=== PATIENT | female | born 1995 | race African-American/Black ===

== ENCOUNTER 2021-05-09 14:32 | Inpatient (IN) ==
--- NOTE | 2021-05-09 15:08 | DR.GENAD ---
HPI Time Seen Time Seen by Provider: 05/09/21 15:08 PCP Primary Care Physician: PATIENT IS 26YR OLD FEMALE WITH BELOW HISTORY. HPI Comment HPI Comment: GENERALIZED WEAKNESS, COUGH, INCREASING SOB AND COUGH SINCE 05/02/21 WHEN SHE TESTED POSITIVE FOR COVID. GETTING WORSE. HAVE POOR APPETITE AND BODYACHES. COVID-19 Coronavirus risk:travel/contact w/high risk person: Yes Has patient experienced Coronavirus symptoms: Yes Coronavirus symptoms experienced: Coughing and Shortness of Breath Nurses notes reviewed Nurses Notes Review: Yes Source History Provided: Patient Mode of Arrival Mode of Arrival: Ambulatory [facility] PM Past Medical History: CHF Past Surgical History: Yes Surgical History: Ortho Surgery Family History Family Medical History: Diabetes Mellitus and Hypertension Social History Do you use any recreational Drugs:: No ROS Review of Systems Constitutional: See HPI, Weakness, Fatigue and Loss of Appetite; negative Fever Eyes: No Symptoms Reported and See HPI ENTM: See HPI, Nose Discharge and Nose Congestion Respiratoy: See HPI, Productive Cough and Short of Breath; negative Wheezing Cardiovascular: No Symptoms Reported and See HPI; negative Chest Pain Gastrointestinal/Abdominal: No Symptoms Reported and See HPI; negative Abdominal Pain, Diarrhea and Vomiting Genitourinary: No Symptoms Reported, See HPI and Other (STOOL AND URINE INCONTINENCE.); negative Dysuria and Hematuria Neurological: See HPI, Headache and Weakness; negative Dizziness Musculoskeletal: See HPI and Muscle Pain; negative Back Pain Integumentary: No Symptoms Reported and See HPI; negative Rash and Juandice Hematologic/Lymphatic: No Symptoms Reported and See HPI; negative Easy Bruising Endocrine: No Symptoms Reported and See HPI; negative Increased Thirst and Increased Urine Psychiatric: No Symptoms Reported and See HPI All Other Systems: Reviewed and Negative PE Vital Signs Vitals: Temperature 98.6 F Pulse Rate 144 Respiratory Rate 46 Blood Pressure [Left Arm] 115/65 Blood Pressure 105/66 O2 Sat by Pulse Oximetry 95 General Limitations: No Limitations General Appearance: Alert and In No Apparent Distress Head Head Exam: Normal Inspection Eyes Eye exam: Normal Appearance; negative Scleral Icterus and Conjunctival Injection ENT ENT Exam: Normal External Ear Exam; negative Normal Oropharynx and TM's Normal Bilaterally External Ear Exam: Normal External Inspection; negative Mastoid Tenderness TM/Canal Exam: Bilateral: Normal Nose Exam: Normal Nose Exam Mouth Exam: Normal Inspection; negative Lip Swelling and Tongue Swelling Throat Exam: Tonsillar Erythema; negative Tonsillomegaly and Tonsillar Exudate Neck Neck Exam: Normal Inspection and Trachea Midline; negative Tenderness Chest Chest Inspection: Normal Inspection and Symmetric Chest Wall Rise; negative Tenderness Respiratory Respiratory Exam: Normal Lung Sounds Bilat and Respiratory Distress; negative Accessory Muscle Use and Chest Wall Tenderness Respiratory Exam: Bilateral: Rhonchi and Lower: Rhonchi Cardiovascular Cardiovascular Exam: Regular Rate, Normal Rhythm and Normal Heart Sounds; negative Systolic Murmur and Diastolic Murmur Abdominal Exam Abdominal Exam: Normal Inspection, Normal Bowel Sounds and Soft; negative Tenderness Extremities Extremities Exam: Normal Inspection and Normal Capillary Refill Back Back Exam: Normal Inspection; negative (R) CVA Tenderness and (L) CVA Tenderness Neurologic Neurological Exam: Alert and Oriented X3; negative Motor Sensory Deficit Psychiatric Psychiatric Exam: Normal Affect and Normal Mood Skin Skin Exam: Dry MDM Differential Diagnosis Differential Diagnosis: PNEUMONIA, BRONCHITIS, UTI, COVID 19 VIRUS INFECTION. COURSE Treatment Treatment: SEE ORDERS DONE WHILE PATIENT WAS IN ER. NS 1L IV BOLUS, ZOSYN 3.375GM IVPB ANS NS 100CC/HR WAS GIVEN PATIENT WHILE IN ER. LABS, EKG ANS XRAY WAS DISCUSSED WITH PATIENT WHILE SHE WAS IN ER. Consultation Consultation Comments: DISCUSSED PATIENT WITH DR. KING. HE ADMITTED PATIENT. Education/Counseling Education/Counseling: Patient Educated On: Diagnosis ROR Labs Reviewed Laboratory Results Reviewed?: Yes Result Diagrams: 05/21/21 05:46 05/21/21 05:46 Laboratory: 05/09/21 15:27 Blood Blood Culture - Final Salmonella Species 05/09/21 15:19 Blood Blood Culture - Final Salmonella Species 05/09/21 17:08 Urine,Clean Catch Urine Culture - Final WBC 20.9 X10^3/uL (3.6-10.0) H 05/09/21 15:27 RBC 2.95 X10^6/uL (3.5-5.4) L 05/09/21 15:27 Hgb 7.0 g/dL (12.0-16.0) L 05/09/21 15:27 Hct 23.0 % (36.0-47.0) L 05/09/21 15:27 MCV 78.1 fL (80.0-100.0) L 05/09/21 15:27 MCH 23.6 pg (27.0-34.0) L 05/09/21 15:27 MCHC 30.3 g/dL (33.0-35.0) L 05/09/21 15: RDW 18.4 % (11.6-16.5) H 05/09/21 15: Plt Count 350 X10^3/uL (150.0-450.0) 05/09/21 15: Plt Count Comment Adequate (ADEQUATE) 05/09/21: MPV 9.0 fL (7.4-11.0) 05/09/21 15: Neut % (Auto) 90.7 % (42.0-75.0) H 05/09/21 15: Lymph % (Auto) 3.6 % (21.0-51.0) L 05/09/21: [place] % (Auto) 3.9 % (0.0-13.0) 05/09/21: Eos % (Auto) 1.7 % (0.9-2.9) 05/09/21: Baso % (Auto) 0.1 % (0.2-1.0) L 05/09/21: Neut # (Auto) 18.0 x10^3/uL (2.2-4.8) H 05/09/21: Lymph # (Auto) 0.7 X10^3/uL (1.3-2.9) L 05/09/21 15: [place] # (Auto) 0.8 x10^3/uL (0.3-0.8) 05/09/21: Eos # (Auto) 0.3 x10^3/uL (0.0-0.2) H 05/09/21: Baso # (Auto) 0.0 X10^3/uL (0.0-0.1) 05/09/21: Absolute Nucleated RBC 3.4 /100WBC 05/09/21: Total Counted 100 05/09/21 15: Neutrophils % (Manual) 86 % (39-76) H 05/09/21 15: Band Neutrophils % 4 % (0-10) 05/09/21: Lymphocytes % (Manual) 9 % (13-43) L 05/09/21: Monocytes % (Manual) 1 % (4-9) L 05/09/21 15: Nucleated RBCs 8 05/09/21 15: Plt Morphology Comment Normal (NORMAL) 05/09/21 RBC Morphology Abnormal (NORMAL) A 05/09/21 15: Hypochromasia 1+ A 05/09/21 15: Anisocytosis Slight A 05/09/21 15: Microcytosis Slight A 05/09/21: Tear Drop Cells Present 05/09/21: PT 17.0 SECONDS (11.8-14.3) 05/09/21 INR Target Range - 05/09/21 INR 1.46 (0.8-1.3) H 05/09/21 APTT 25.1 SECONDS (22.9-36.5) 05/09/21 PTT Comment - 05/09/21 Sample Site Rr 05/09/21 15: ABG pH 7.530 (7.35-7.45) H 05/09/21 15:15 ABG pCO2 27.0 mmHg (35.0-45.0) L 05/09/21 15:15 ABG pO2 74.0 mmHg (80.0-100.0) L 05/09/21 15:15 ABG HCO3 22.6 mmol/L (22-26) 05/09/21 15:15 ABG O2 Saturation 96.0 % (90-100) 05/09/21 15:15 ABG Base Excess 0.9 mmol/L (-2.0-2.0) 05/09/21 15:15 Ti Test Pos 05/09/21 15:15 A-a Gradient 42.0 mmHg 05/09/21 15:15 FiO2 21.0 05/09/21 15:15 Blood Gas Comments Pt betty well cdn 05/09/21 15:15 Sodium 134 mmol/L (136-145) L 05/09/21: Corrected Sodium 139 mmol/L (136-145) 05/09/21 15: Potassium 3.5 mmol/L (3.5-5.1) 05/09/21 15: Chloride 97 mmol/L (98-107) L 05/09/21 15: Carbon Dioxide 22.1 mmol/L (21-32) 05/09/21 15:27 BUN 8 mg/dL (7-18) 05/09/21 15:27 Creatinine 0.78 mg/dL (0.55-1.02) 05/09/21 15:27 Est GFR (MDRD) Af Amer > 60 (>60) 05/09/21 15:27 Est GFR (MDRD) Non-Af > 60 (>60) 05/09/21 15:27 Glucose 297 mg/dL (65-99) H 05/09/21 15:27 Lactic Acid 5.1 mmol/L (0.4-2.0) H 05/09/21 15:27 Calcium 8.2 mg/dL (8.5-10.1) L 05/09/21 15:27 Corrected Calcium 10.4 mg/dL (8.5-10.1) H 05/09/21 15:27 Total Bilirubin 0.80 mg/dL (0.2-1.0) 05/09/21 15:27 AST 25 Units/L (15-37) 05/09/21 15:27 ALT 18 Units/L (12-78) 05/09/21 15:27 Alkaline Phosphatase 122 Units/L (46-116) H 05/09/21 15:27 Creatine Kinase 13 Units/L (26-192) L 05/09/21 15:27 CK-MB (CK-2) < 1.0 ng/mL (0-4.0) 05/09/21 15:27 CK/CKMB % Calc 7.7 % (<4) 05/09/21 15:27 Troponin I High Sens 12.3 ng/L (4.0-60.0) 05/09/21 15:27 B-Natriuretic Peptide 221 pg/mL (0-79) H 05/09/21 15:27 Total Protein 7.0 g/dL (6.4-8.2) 05/09/21 15:27 Albumin 1.2 g/dL (3.4-5.0) L 05/09/21 15:27 Globulin 5.8 g/dL (2.5-4.5) H 05/09/21 15:27 Albumin/Globulin Ratio 0.2 Ratio (1.1-2.1) L 05/09/21 15:27 Specimen Type Clean catch urine 05/09/21 17:08 Urine Color Molly (YELLOW) 05/09/21 17:08 Urine Appearance Hazy (CLEAR) 05/09/21 17:08 Urine pH 6.0 (5.0 - 8.0) 05/09/21 17:08 Ur Specific [place] 1.020 (1.000-1.030) 05/09/21 17:08 Urine Protein 4+ (NEGATIVE) 05/09/21 17:08 Urine Glucose (UA) 3+ (NEGATIVE) 05/09/21 17:08 Urine Ketones 1+ (NEGATIVE) 05/09/21 17:08 Urine Occult Blood 5+ (NEGATIVE) 05/09/21 17:08 Urine Nitrite Positive (NEGATIVE) 05/09/21 17:08 Urine Bilirubin Negative (NEGATIVE) 05/09/21 17:08 Urine Urobilinogen 2+ (NORMAL) 05/09/21 17:08 Ur Leukocyte Esterase 3+ (NEGATIVE) 05/09/21 17:08 Urine RBC 10-20 /HPF (0-3) A 05/09/21 17:08 Urine WBC Tntc /HPF (0-5) A 05/09/21 17:08 Ur Squamous Epith Cells Rare /HPF (NEGATIVE) 05/09/21 17:08 Urine Bacteria 2+ /HPF (NEGATIVE) 05/09/21 17:08 Ur Culture Indicated? Yes/culture set up 05/09/21 17:08 Blood Type O POSITIVE 05/09/21 16:10 Antibody Screen Negative 05/09/21 16:10 Crossmatch See Detail 05/09/21 16:10 XRAY XRAY Interpreted by: Radiologist and Self EKG Rate: 149 [place]: Normal Rhythm: NSR Block: None Hypertrophy: LAE ST: Old and Ant Opioid Opioid Risk Tool Age (Michael box if 16-45): Yes History of Preadolescent Sexual Abuse: No Total: 1 Total Score Risk Category: Low Risk Copyright: Prasanna SHAH predicting aberrant behaviors Diagnosis Discharge Problem: Acute dehydration, SOB (shortness of breath), Sarcoidosis Anemia Qualifiers: Anemia type: unspecified type Qualified Code(s): D64.9 - Anemia, unspecified Vomiting Qualifiers: Vomiting type: unspecified Nausea presence: with nausea Qualified Code(s): R11.2 - Nausea with vomiting, unspecified Instructions Instructions: Preventing Foodborne Illness Anemia Sarcoidosis PICC Home Care Guide Heart Failure, Diagnosis, [id number] Salmonella Gastroenteritis, Adult Sepsis, Self Care, Adult Forms: Excuse From Work or School Precautions for COVID19 [facility] Social Distancing
[2021-05-09] MEDS ORDERED: NS 1,000 ML IV 1,000 ML IV ONE (15:19)
[2021-05-09 15:29] LABS: ABG ALLEN TEST POS; ABG BASE EXCESS 0.9 mmol/L (-2.0-2.0); ABG HCO3 22.6 mmol/L (22-26)
[2021-05-09] MEDS ORDERED: NS 1,000 ML IV 1,000 ML ONE (15:34)
[2021-05-09 15:43] LABS: BASOPHILS % (AUTO) 0.1 % (0.2-1.0); EOSINOPHILS # (AUTO) 0.3 x10^3/uL (0.0-0.2); EOSINOPHILS % (AUTO) 1.7 % (0.9-2.9); LYMPHOCYTES # (AUTO) 0.7 X10^3/uL (1.3-2.9); LYMPHOCYTES % (AUTO) 3.6 % (21.0-51.0); MEAN CORPUSCULAR HEMOGLOBIN 23.6 pg (27.0-34.0); MEAN CORPUSCULAR HGB CONC 30.3 g/dL (33.0-35.0); MEAN CORPUSCULAR VOLUME 78.1 fL (80.0-100.0); MONOCYTES # (AUTO) 0.8 x10^3/uL (0.3-0.8); MONOCYTES % (AUTO) 3.9 % (0.0-13.0); NEUTROPHILS % (AUTO) 90.7 % (42.0-75.0); RED BLOOD COUNT 2.95 X10^6/uL (3.5-5.4); RED CELL DISTRIBUTION WIDTH 18.4 % (11.6-16.5)
--- NOTE | 2021-05-09 15:52 | RAD ---
CHEST, 1 VIEWHISTORY: COVID-19 positiveStudy: Single view of the chest.Comparison:May 22Findings:Re-demonstration of large hilar mass.No focal consolidations, pleural effusions or pneumothorax. Osseous structures demonstrate no acute abnormality.IMPRESSION:1. No acute cardiopulmonary process.2. Re-demonstration of large right hilar mass.Electronically signed by: ADARSH BOWDEN (May 09, 2021 15:51:30)
[2021-05-09 15:58] LABS: LACTIC ACID 5.1 mmol/L (0.4-2.0)
[2021-05-09 16:04] LABS: ALANINE AMINOTRANSFERASE 18 Units/L (12-78); ALKALINE PHOSPHATASE 122 Units/L (46-116); ASPARTATE AMINO TRANSFERASE 25 Units/L (15-37); BLOOD UREA NITROGEN 8 mg/dL (7-18); CALCIUM 8.2 mg/dL (8.5-10.1); CARBON DIOXIDE 22.1 mmol/L (21-32); CHLORIDE 97 mmol/L (98-107); CKMB % 7.7 % (<4); COR NA(FOR HYPERGLY) 139 mmol/L (136-145); CREATINE KINASE 13 Units/L (26-192); CREATINE KINASE MB < 1.0 ng/mL (0-4.0); CREATININE 0.78 mg/dL (0.55-1.02); SODIUM 134 mmol/L (136-145); eGFR NON BLACK RACES > 60 (>60)
[2021-05-09 16:08] LABS: BAND NEUTROPHILS % 4 % (0-10); HYPOCHROMASIA 1+; PLATELET MORPHOLOGY COMMENT NORMAL (NORMAL); WHITE BLOOD COUNT 20.9 X10^3/uL (3.6-10.0)
[2021-05-09 16:09] LABS: ANISOCYTOSIS SLIGHT; MICROCYTOSIS SLIGHT; TEAR DROP CELLS PRESENT
[2021-05-09 16:37] LABS: COR CA(FOR HYPOALB) 10.4 mg/dL (8.5-10.1)
[2021-05-09 16:38] LABS: ALBUMIN 1.2 g/dL (3.4-5.0)
[2021-05-09] MEDS ORDERED: ZOSYN VIAL 3.375 GRAMS 3.375 G in NS 100 ML IV 100 ML IV ONE (17:11)
[2021-05-09] MEDS ORDERED: NS 100 ML IV 100 ML ONE (17:17)
[2021-05-09] MEDS ORDERED: ZOSYN VIAL 3.375 GRAMS IV ONE (17:17)
[2021-05-09 17:31] LABS: BILIRUBIN,URINE NEGATIVE (NEGATIVE); BLOOD/HEMOGLOBIN,URINE 5+ (NEGATIVE); GLUCOSE, URINE 3+ (NEGATIVE); KETONES,URINE 1+ (NEGATIVE); LEUKOCYTE ESTERASE ,URINE 3+ (NEGATIVE); NITRITES,URINE POSITIVE (NEGATIVE); PROTEIN,URINE 4+ (NEGATIVE); UROBILINOGEN,URINE 2+ (NORMAL)
[2021-05-09 17:35] LABS: APPEARANCE,URINE HAZY (CLEAR); COLOR,URINE AMBER (YELLOW)
[2021-05-09 17:36] LABS: BACTERIA,URINE 2+ /HPF (NEGATIVE); SQUAMOUS EPITHELIAL CELL,UR RARE /HPF (NEGATIVE)
[2021-05-09] MEDS: NS 1,000 ML IV 1,000 ML IV SCH (21:03)
[2021-05-09] MEDS: PULMICORT NEB TX 0.5 MG NEB SCH (21:12)
[2021-05-09] MEDS ORDERED: LOPRESSOR INJ 5 MG AMP IVP ONE (21:46)
[2021-05-09] MEDS: XOPENEX 1.25 MG/3 ML NEBULE NEB SCH (21:50)
[2021-05-09] MEDS: ZOSYN VIAL 3.375 GRAMS 3.375 G in NS 100 ML IV 100 ML IV SCH (21:58)
[2021-05-09] MEDS: TYLENOL 325 MG TAB PO PRN (22:13)
[2021-05-09] MEDS ORDERED: TUSSIONEX PENNKINETIC SUSP PO PRN (23:00)
[2021-05-10] MEDS ORDERED: NS 250 ML IV 250 ML IV ONE (03:47)
[2021-05-10] MEDS: TYLENOL 325 MG TAB PO PRN (03:52)
[2021-05-10] MEDS: ZOSYN VIAL 3.375 GRAMS 3.375 G in NS 100 ML IV 100 ML IV SCH ×3 (05:16→21:24)
[2021-05-10 07:38] LABS: HEMATOCRIT 23.3 % (36.0-47.0); MEAN CORPUSCULAR VOLUME 78.3 fL (80.0-100.0); MONOCYTES # (AUTO) 0.7 x10^3/uL (0.3-0.8); RED BLOOD COUNT 2.97 X10^6/uL (3.5-5.4)
[2021-05-10 07:42] LABS: BASOPHILS % (AUTO) 0.2 % (0.2-1.0); EOSINOPHILS # (AUTO) 0.2 x10^3/uL (0.0-0.2); EOSINOPHILS % (AUTO) 1.1 % (0.9-2.9); HEMOGLOBIN 7.3 g/dL (12.0-16.0); LYMPHOCYTES % (AUTO) 6.1 % (21.0-51.0); MEAN CORPUSCULAR HEMOGLOBIN 24.4 pg (27.0-34.0); MEAN CORPUSCULAR HGB CONC 31.2 g/dL (33.0-35.0); MEAN PLATELET VOLUME 8.5 fL (7.4-11.0); MONOCYTES % (AUTO) 4.1 % (0.0-13.0); NEUTROPHILS % (AUTO) 88.5 % (42.0-75.0)
[2021-05-10 07:50] LABS: ALANINE AMINOTRANSFERASE 17 Units/L (12-78); ALBUMIN 1.1 g/dL (3.4-5.0); ALKALINE PHOSPHATASE 104 Units/L (46-116); ASPARTATE AMINO TRANSFERASE 34 Units/L (15-37); BLOOD UREA NITROGEN 10 mg/dL (7-18); CALCIUM 7.4 mg/dL (8.5-10.1); CARBON DIOXIDE 25.5 mmol/L (21-32); CHLORIDE 100 mmol/L (98-107); COR CA(FOR HYPOALB) 9.7 mg/dL (8.5-10.1); COR NA(FOR HYPERGLY) 138 mmol/L (136-145); MAGNESIUM 2.2 mg/dL (1.7-2.9); SODIUM 136 mmol/L (136-145); TOTAL PROTEIN 5.9 g/dL (6.4-8.2); eGFR NON BLACK RACES > 60 (>60)
[2021-05-10 08:03] LABS: ANISOCYTOSIS SLIGHT; BAND NEUTROPHILS % 4 % (0-10); HYPOCHROMASIA SLIGHT; METAMYELOCYTES % 3; MICROCYTOSIS SLIGHT; PLATELET MORPHOLOGY COMMENT NORMAL (NORMAL); TARGET CELLS PRESENT
[2021-05-10] MEDS: XOPENEX 1.25 MG/3 ML NEBULE NEB SCH ×4 (08:53→21:07)
[2021-05-10] MEDS: PULMICORT NEB TX 0.5 MG NEB SCH ×2 (08:53→21:07)
[2021-05-10] MEDS: NS 1,000 ML IV 1,000 ML IV SCH (09:27)
--- NOTE | 2021-05-10 10:47 | DR.H&P ---
H&P History & Physical for Day of: H&P Date: 05/10/21 Chief Complaint Chief Complaint: Palpitations Dysuria Shortness of breath Allergies Allergies Allergy/AdvReac Type Severity Reaction Status Date / Time No Known Drug Allergies Allergy Verified 11/18/17 13:59 History of Present Illness History of Present Illness: Pt is a 26 year old female past medical history of Sarcoidosis, CHF, and hypertension presenting with palpitations, shortness of breath, and dysuria. Pt recently diagnosed almost 10 days ago with COVID-19 and was given paxlovid which she completed. She reports still having generalized weakness and shortness of breath. She did test positive for COVID-19 on admission. Labs/imaging: Wbc 20, Hgb 7.0, Plt 350, Na 136, K 3.1, Creatinine 0.60, Glucose 191, ABG: pH 7.53, pCO2 27, pO2 74, HCO3 22, O2sat 96%, LA 5.1 > 2.4 > 2.0. UA c/w infection, Urine culture > 3 organisms, Blood cultures pending, CXR: 1. No acute cardiopulmonary process. 2. Re-demonstration of large right hilar mass. Pt admitted for symptomatic anemia, bronchiolitis, acute cyst itis. Will order 1 unit packed red blood cells to be transfused for anemia. Start on antibiotics, IV Zosyn Q8h, IV Solumedrol 40mg, and scheduled bronchodilators. Restart home medications. Replete potassium per protocol. Will continue to closely monitor and follow up labs in the morning. Past Medical History Past Medical History: CHF Past Surgical History Surgical History: Ortho Surgery Family History Family Medical History: Diabetes Mellitus and Hypertension Social History Does patient currently use any type of tobacco product: No Have you used tobacco products in the last 12 months: No Type of Tobacco Use: None Does any household member use tobacco: No Alcohol Use: None Drug Use: None Medications Home Medications: No Known Drug Allergies Allergy (Verified 11/18/17 13:59) CONTINUE taking the following medications carvedilol 25 mg PO Q12H 05/10/21 [History] famotidine 20 mg PO QHS 05/10/21 [History] ipratropium-albuterol 3 ml INHALATION BID 05/10/21 [History] pantoprazole 40 mg PO QAM 05/10/21 [History] prednisone 10 mg PO DAILY 05/10/21 [History] Labs Result Diagrams: 05/10/21 07:30 05/10/21 07:30 Labs: 05/09/21 17:08 Urine,Clean Catch Urine Culture - Final Laboratory WBC 17.0 X10^3/uL (3.6-10.0) H 05/10/21 07:30 RBC 2.97 X10^6/uL (3.5-5.4) L 05/10/21 07:30 Hgb 7.3 g/dL (12.0-16.0) L 05/10/21 07:30 Hct 23.3 % (36.0-47.0) L 05/10/21 07:30 MCV 78.3 fL (80.0-100.0) L 05/10/21 07:30 MCH 24.4 pg (27.0-34.0) L 05/10/21 07:30 MCHC 31.2 g/dL (33.0-35.0) L 05/10/21 07:30 RDW 18.0 % (11.6-16.5) H 05/10/21 07:30 Plt Count 273 X10^3/uL (150.0-450.0) 05/10/21 07:30 Plt Count Comment Adequate (ADEQUATE) 05/10/21 07:30 MPV 8.5 fL (7.4-11.0) 05/10/21 07:30 Neut % (Auto) 88.5 % (42.0-75.0) H 05/10/21 07:30 Lymph % (Auto) 6.1 % (21.0-51.0) L 05/10/21 07:30 [place] % (Auto) 4.1 % (0.0-13.0) 05/10/21 07:30 Eos % (Auto) 1.1 % (0.9-2.9) 05/10/21 07:30 Baso % (Auto) 0.2 % (0.2-1.0) 05/10/21 07:30 Neut # (Auto) 15.0 x10^3/uL (2.2-4.8) H 05/10/21 07:30 Lymph # (Auto) 1.0 X10^3/uL (1.3-2.9) L 05/10/21 07:30 [place] # (Auto) 0.7 x10^3/uL (0.3-0.8) 05/10/21 07:30 Eos # (Auto) 0.2 x10^3/uL (0.0-0.2) 05/10/21 07:30 Baso # (Auto) 0.0 X10^3/uL (0.0-0.1) 05/10/21 07:30 Absolute Nucleated RBC 1.7 /100WBC 05/10/21 07:30 Total Counted 100 05/10/21 07:30 Neutrophils % (Manual) 81 % (39-76) H 05/10/21 07:30 Band Neutrophils % 4 % (0-10) 05/10/21 07:30 Lymphocytes % (Manual) 9 % (13-43) L 05/10/21 07:30 Monocytes % (Manual) 3 % (4-9) L 05/10/21 07:30 Metamyelocytes % 3 05/10/21 07:30 Nucleated RBCs 4 05/10/21 07:30 Plt Morphology Comment Normal (NORMAL) 05/10/21 07:30 RBC Morphology Abnormal (NORMAL) A 05/10/21 07:30 Hypochromasia Slight A 05/10/21 07:30 Anisocytosis Slight A 05/10/21 07:30 Microcytosis Slight A 05/10/21 07:30 Target Cells Present 05/10/21 07:30 Tear Drop Cells Present 05/09/21 15:27 PT 17.0 SECONDS (11.8-14.3) 05/09/21 15:27 INR Target Range - 05/09/21 15:27 INR 1.46 (0.8-1.3) H 05/09/21 15:27 APTT 25.1 SECONDS (22.9-36.5) 05/09/21 15:27 PTT Comment - 05/09/21 15:27 Sample Site Rr 05/09/21 15:15 ABG pH 7.530 (7.35-7.45) H 05/09/21 15:15 ABG pCO2 27.0 mmHg (35.0-45.0) L 05/09/21 15:15 ABG pO2 74.0 mmHg (80.0-100.0) L 05/09/21 15:15 ABG HCO3 22.6 mmol/L (22-26) 05/09/21 15:15 ABG O2 Saturation 96.0 % (90-100) 05/09/21 15:15 ABG Base Excess 0.9 mmol/L (-2.0-2.0) 05/09/21 15:15 Ti Test Pos 05/09/21 15:15 A-a Gradient 42.0 mmHg 05/09/21 15:15 FiO2 21.0 05/09/21 15:15 Blood Gas Comments Pt betty well cdn 05/09/21 15:15 Sodium 136 mmol/L (136-145) 05/10/21 07:30 Corrected Sodium 138 mmol/L (136-145) 05/10/21 07:30 Potassium 3.1 mmol/L (3.5-5.1) L 05/10/21 07:30 Chloride 100 mmol/L (98-107) 05/10/21 07:30 Carbon Dioxide 25.5 mmol/L (21-32) 05/10/21 07:30 BUN 10 mg/dL (7-18) 05/10/21 07:30 Creatinine 0.60 mg/dL (0.55-1.02) 05/10/21 07:30 Est GFR (MDRD) Af Amer > 60 (>60) 05/10/21 07:30 Est GFR (MDRD) Non-Af > 60 (>60) 05/10/21 07:30 Glucose 191 mg/dL (65-99) H 05/10/21 07:30 Lactic Acid 2.0 mmol/L (0.4-2.0) 05/10/21 07:30 Calcium 7.4 mg/dL (8.5-10.1) L 05/10/21 07:30 Corrected Calcium 9.7 mg/dL (8.5-10.1) 05/10/21 07:30 Magnesium 2.2 mg/dL (1.7-2.9) 05/10/21 07:30 Total Bilirubin 1.10 mg/dL (0.2-1.0) H 05/10/21 07:30 AST 34 Units/L (15-37) 05/10/21 07:30 ALT 17 Units/L (12-78) 05/10/21 07:30 Alkaline Phosphatase 104 Units/L (46-116) 05/10/21 07:30 Creatine Kinase 13 Units/L (26-192) L 05/09/21 15:27 CK-MB (CK-2) < 1.0 ng/mL (0-4.0) 05/09/21 15:27 CK/CKMB % Calc 7.7 % (<4) 05/09/21 15:27 Troponin I High Sens 12.3 ng/L (4.0-60.0) 05/09/21 15: B-Natriuretic Peptide 221 pg/mL (0-79) H 05/09/21 15:27 Total Protein 5.9 g/dL (6.4-8.2) L 05/10/21 07:30 Albumin 1.1 g/dL (3.4-5.0) L 05/10/21 07:30 Globulin 4.8 g/dL (2.5-4.5) H 05/10/21 07:30 Albumin/Globulin Ratio 0.2 Ratio (1.1-2.1) L 05/10/21 07:30 Specimen Type Clean catch urine 05/09/21 17:08 Urine Color Molly (YELLOW) 05/09/21 17:08 Urine Appearance Hazy (CLEAR) 05/09/21 17:08 Urine pH 6.0 (5.0 - 8.0) 05/09/21 17:08 Ur Specific [place] 1.020 (1.000-1.030) 05/09/21 17:08 Urine Protein 4+ (NEGATIVE) 05/09/21 17:08 Urine Glucose (UA) 3+ (NEGATIVE) 05/09/21 17:08 Urine Ketones 1+ (NEGATIVE) 05/09/21 17:08 Urine Occult Blood 5+ (NEGATIVE) 05/09/21 17:08 Urine Nitrite Positive (NEGATIVE) 05/09/21 17:08 Urine Bilirubin Negative (NEGATIVE) 05/09/21 17:08 Urine Urobilinogen 2+ (NORMAL) 05/09/21 17:08 Ur Leukocyte Esterase 3+ (NEGATIVE) 05/09/21 17:08 Urine RBC 10-20 /HPF (0-3) A 05/09/21 17:08 Urine WBC Tntc /HPF (0-5) A 05/09/21 17:08 Ur Squamous Epith Cells Rare /HPF (NEGATIVE) 05/09/21 17:08 Urine Bacteria 2+ /HPF (NEGATIVE) 05/09/21 17:08 Ur Culture Indicated? Yes/culture set up 05/09/21 17:08 SARS CoV-2 RNA Rapid SATHISH Negative (NEGATIVE) 05/09/21 17:40 Blood Type O POSITIVE 05/09/21 16:10 Antibody Screen Negative 05/09/21 16:10 Crossmatch See Detail 05/09/21 16:10 Review of Systems Constitutional: Weakness; denies Fever and Chills Eyes: No Symptoms Reported ENT: No Symptoms Reported Respiratory: Shortness of Breath and Wheezing Cardiovascular: Palpitations Gastrointestinal: No Symptoms Reported Genitourinary: Dysuria Musculoskeletal: No Symptoms Reported Skin: No Symptoms Reported Neurological: No Symptoms Reported Physical Exam Vital Signs: Temperature 98.2 F Pulse Rate [Brachial] 123 Pulse Rate 128 Respiratory Rate 18 Blood Pressure [Left Arm] 118/62 Blood Pressure 100/70 O2 Sat by Pulse Oximetry 100 Oriented: Normal Eyes: Normal Ear: Normal Nose: Normal Throat: Normal Respiratory: Rhonchi Throughout and Wheezes Throughout Cardiovascular: Normal : Normal Auscultation: Bowel Sounds: Normal Palpation: Normal Tenderness: Normal Skin: Normal Musculoskeletal: Normal Psychiatric: Normal Mood Description: Calm and Appropriate Affect: Normal Speech Pattern: Clear and Appropriate Assessment/Plan (1) Bronchiolitis: Status: Acute (2) Acute cystitis: Status: Acute (3) Symptomatic anemia: Status: Acute (4) Hypokalemia: Status: Acute Review H&P Reviewed: Yes Patient was examined?: Yes
[2021-05-10] MEDS: COREG TAB 25 MG PO SCH ×2 (11:06→20:51)
[2021-05-10] MEDS: PROTONIX TAB 40 MG PO SCH (11:06)
[2021-05-10] MEDS: SOLU-Medrol 40 MG VIAL IVP SCH (11:36)
[2021-05-10] MEDS ORDERED: POTASSIUM CHL 40 MEQ/NS 0.45% 500 ML IV PRN (12:09)
[2021-05-10] MEDS ORDERED: POTASSIUM CHL 60 MEQ/NS 0.45% 500 ML IV PRN (12:09)
[2021-05-10] MEDS ORDERED: K-RIDER 10 MEQ/NS 100 ML 10 MEQ/100 ML BAG IV PRN (12:09)
[2021-05-10] MEDS ORDERED: KLOR-CON PO PRN (12:09)
[2021-05-10] MEDS ORDERED: MICRO K EXTEN CAP 10 MEQ PO PRN (12:09)
[2021-05-10] MEDS ORDERED: POTASSIUM CHLORIDE LIQ 20 MEQ UDC PO PRN (12:09)
[2021-05-10] MEDS: PEPCID TAB 20 MG PO SCH (20:51)
[2021-05-11] MEDS: ZOSYN VIAL 3.375 GRAMS 3.375 G in NS 100 ML IV 100 ML IV SCH ×3 (05:53→21:09)
[2021-05-11 06:53] LABS: ALANINE AMINOTRANSFERASE 17 Units/L (12-78); ALBUMIN 1.2 g/dL (3.4-5.0); ALKALINE PHOSPHATASE 188 Units/L (46-116); ASPARTATE AMINO TRANSFERASE 27 Units/L (15-37); BLOOD UREA NITROGEN 9 mg/dL (7-18); CALCIUM 7.5 mg/dL (8.5-10.1); CARBON DIOXIDE 24.8 mmol/L (21-32); CHLORIDE 101 mmol/L (98-107); COR CA(FOR HYPOALB) 9.7 mg/dL (8.5-10.1); COR NA(FOR HYPERGLY) 138 mmol/L (136-145); MAGNESIUM 2.5 mg/dL (1.7-2.9); SODIUM 136 mmol/L (136-145); eGFR NON BLACK RACES > 60 (>60)
[2021-05-11 06:54] LABS: BASOPHILS # (AUTO) 0.1 X10^3/uL (0.0-0.1); BASOPHILS % (AUTO) 0.4 % (0.2-1.0); EOSINOPHILS # (AUTO) 0.3 x10^3/uL (0.0-0.2); EOSINOPHILS % (AUTO) 1.3 % (0.9-2.9); HEMATOCRIT 22.1 % (36.0-47.0); LYMPHOCYTES # (AUTO) 1.3 X10^3/uL (1.3-2.9); LYMPHOCYTES % (AUTO) 5.3 % (21.0-51.0); MEAN CORPUSCULAR HEMOGLOBIN 24.5 pg (27.0-34.0); MEAN CORPUSCULAR HGB CONC 31.8 g/dL (33.0-35.0); MEAN PLATELET VOLUME 8.9 fL (7.4-11.0); MONOCYTES # (AUTO) 1.2 x10^3/uL (0.3-0.8); NEUTROPHILS # (AUTO) 21.2 x10^3/uL (2.2-4.8); RED BLOOD COUNT 2.86 X10^6/uL (3.5-5.4)
[2021-05-11 07:48] LABS: BAND NEUTROPHILS % 7 % (0-10); METAMYELOCYTES % 3
[2021-05-11 07:49] LABS: ANISOCYTOSIS SLIGHT; HYPOCHROMASIA SLIGHT; MICROCYTOSIS SLIGHT; PLATELET MORPHOLOGY COMMENT NORMAL (NORMAL)
[2021-05-11] MEDS: COREG TAB 25 MG PO SCH ×2 (08:03→20:28)
[2021-05-11] MEDS: SOLU-Medrol 40 MG VIAL IVP SCH (08:03)
[2021-05-11] MEDS: PROTONIX TAB 40 MG PO SCH (08:03)
[2021-05-11] MEDS: NS 1,000 ML IV 1,000 ML IV SCH ×3 (08:31→14:14)
[2021-05-11] MEDS ORDERED: NS 250 ML IV 250 ML IV PRN (09:02)
[2021-05-11] MEDS: PULMICORT NEB TX 0.5 MG NEB SCH ×2 (09:17→20:05)
[2021-05-11] MEDS: XOPENEX 1.25 MG/3 ML NEBULE NEB SCH ×4 (09:17→20:05)
--- NOTE | 2021-05-11 10:11 | PCM.PROG ---
Progress Note Progress Note for Day of Date of Exam: 05/11/21 Subjective Subjective: Pt is a 26 year old female past medical history of Sarcoidosis, CHF, and hypertension admitted for Bronchiolitis, Symptomatic anemia, and Acute cystitis. This morning pt has significant improvement in her symptoms and respiratory status. No acute events overnight. Labs/imaging: Wbc 24, Hgb 7.0, Plt 217, Na 136, K 3.9, Creatinine 0.40, Glucose 173, Urine culture > 3 organisms, Blood cultures prelim gram negative rods. Will repeat blood cultures and urine culture. Pt continues to have significant anemia, has received 1 unit of packed red blood cells, will order another 1 unit to be transfused. Continue with antibiotics: IV Zosyn Q8h, IV Solumedrol 40mg, and scheduled bronchodilators. Home medications have been resumed. Will continue to closely monitor and follow up labs in the morning. Past Medical Family Social History Past Med/Fam/Surg Hx: No changes since H&P Allergies: Allergies No Known Drug Allergies Allergy (Verified 11/18/17 13:59) Review of Systems ROS: No change since H&P Vital Signs and I&O's Vital Signs: Temperature 98.8 F Pulse Rate [Brachial] 116 Pulse Rate 110 Respiratory Rate 20 Blood Pressure [Left Arm] 125/56 Blood Pressure 100/70 O2 Sat by Pulse Oximetry 98 Intake and Output: Intake & Output 05/08/21 05/09/21 05/10/21 05/11/21 22:59 22:59 23:59 23:59 Intake Total 544 / 544 Balance 544 / 544 Physical Exam Oriented: Normal Eyes: Normal Ear: Normal Nose: Normal Throat: Normal Respiratory: Normal Cardiovascular: Normal : Normal Auscultation: Bowel Sounds: Normal Tenderness: Normal Skin: Normal Musculoskeletal: Normal Psychiatric: Normal Mood Description: Calm and Appropriate Affect: Normal Speech Pattern: Clear and Appropriate Laboratory and Diagnostics Result Diagrams: 05/11/21 06:12 05/11/21 06:12 Labs: 05/09/21 15:27 Blood Blood Culture - Preliminary 05/09/21 15:19 Blood Blood Culture - Preliminary 05/09/21 17:08 Urine,Clean Catch Urine Culture - Final Laboratory WBC 24.0 X10^3/uL (3.6-10.0) H 05/11/21 06:12 RBC 2.86 X10^6/uL (3.5-5.4) L 05/11/21 06:12 Hgb 7.0 g/dL (12.0-16.0) L 05/11/21 06:12 Hct 22.1 % (36.0-47.0) L 05/11/21 06:12 MCV 77.0 fL (80.0-100.0) L 05/11/21 06:12 MCH 24.5 pg (27.0-34.0) L 05/11/21 06:12 MCHC 31.8 g/dL (33.0-35.0) L 05/11/21 06:12 RDW 18.0 % (11.6-16.5) H 05/11/21 06:12 Plt Count 217 X10^3/uL (150.0-450.0) 05/11/21 06:12 Plt Count Comment Adequate (ADEQUATE) 05/11/21 06:12 MPV 8.9 fL (7.4-11.0) 05/11/21 06:12 Neut % (Auto) 88.0 % (42.0-75.0) H 05/11/21 06:12 Lymph % (Auto) 5.3 % (21.0-51.0) L 05/11/21 06:12 [place] % (Auto) 5.0 % (0.0-13.0) 05/11/21 06:12 Eos % (Auto) 1.3 % (0.9-2.9) 05/11/21 06:12 Baso % (Auto) 0.4 % (0.2-1.0) 05/11/21 06:12 Neut # (Auto) 21.2 x10^3/uL (2.2-4.8) H 05/11/21 06:12 Lymph # (Auto) 1.3 X10^3/uL (1.3-2.9) 05/11/21 06:12 [place] # (Auto) 1.2 x10^3/uL (0.3-0.8) H 05/11/21 06:12 Eos # (Auto) 0.3 x10^3/uL (0.0-0.2) H 05/11/21 06:12 Baso # (Auto) 0.1 X10^3/uL (0.0-0.1) 05/11/21 06:12 Absolute Nucleated RBC 0.6 /100WBC 05/11/21 06:12 Total Counted 100 05/11/21 06:12 Neutrophils % (Manual) 81 % (39-76) H 05/11/21 06:12 Band Neutrophils % 7 % (0-10) 05/11/21 06:12 Lymphocytes % (Manual) 7 % (13-43) L 05/11/21 06:12 Monocytes % (Manual) 2 % (4-9) L 05/11/21 06:12 Metamyelocytes % 3 05/11/21 06:12 Nucleated RBCs 2 05/11/21 06:12 Plt Morphology Comment Normal (NORMAL) 05/11/21 06:12 RBC Morphology Abnormal (NORMAL) A 05/11/21 06:12 Hypochromasia Slight A 05/11/21 06:12 Anisocytosis Slight A 05/11/21 06:12 Microcytosis Slight A 05/11/21 06:12 Target Cells Present 05/10/21 07:30 Tear Drop Cells Present 05/09/21 15:27 PT 17.0 SECONDS (11.8-14.3) 05/09/21 15:27 INR Target Range - 05/09/21 15:27 INR 1.46 (0.8-1.3) H 05/09/21 15:27 APTT 25.1 SECONDS (22.9-36.5) 05/09/21 15:27 PTT Comment - 05/09/21 15:27 Sample Site Rr 05/09/21 15:15 ABG pH 7.530 (7.35-7.45) H 05/09/21 15:15 ABG pCO2 27.0 mmHg (35.0-45.0) L 05/09/21 15:15 ABG pO2 74.0 mmHg (80.0-100.0) L 05/09/21 15:15 ABG HCO3 22.6 mmol/L (22-26) 05/09/21 15:15 ABG O2 Saturation 96.0 % (90-100) 05/09/21 15:15 ABG Base Excess 0.9 mmol/L (-2.0-2.0) 05/09/21 15:15 Ti Test Pos 05/09/21 15:15 A-a Gradient 42.0 mmHg 05/09/21 15:15 FiO2 21.0 05/09/21 15:15 Blood Gas Comments Pt betty well cdn 05/09/21 15:15 Sodium 136 mmol/L (136-145) 05/11/21 06:12 Corrected Sodium 138 mmol/L (136-145) 05/11/21 06:12 Potassium 3.9 mmol/L (3.5-5.1) 05/11/21 06:12 Chloride 101 mmol/L (98-107) 05/11/21 06:12 Carbon Dioxide 24.8 mmol/L (21-32) 05/11/21 06:12 BUN 9 mg/dL (7-18) 05/11/21 06:12 Creatinine 0.40 mg/dL (0.55-1.02) L 05/11/21 06:12 Est GFR (MDRD) Af Amer > 60 (>60) 05/11/21 06:12 Est GFR (MDRD) Non-Af > 60 (>60) 05/11/21 06:12 Glucose 173 mg/dL (65-99) H 05/11/21 06:12 POC Glucose (mg/dL) 160 mg/dL (65-99) H 05/11/21 05:49 Lactic Acid 2.0 mmol/L (0.4-2.0) 05/10/21 07:30 Calcium 7.5 mg/dL (8.5-10.1) L 05/11/21 06:12 Corrected Calcium 9.7 mg/dL (8.5-10.1) 05/11/21 06:12 Magnesium 2.5 mg/dL (1.7-2.9) 05/11/21 06:12 Total Bilirubin 1.00 mg/dL (0.2-1.0) 05/11/21 06:12 AST 27 Units/L (15-37) 05/11/21 06:12 ALT 17 Units/L (12-78) 05/11/21 06:12 Alkaline Phosphatase 188 Units/L (46-116) H 05/11/21 06:12 Creatine Kinase 13 Units/L (26-192) L 05/09/21 15:27 CK-MB (CK-2) < 1.0 ng/mL (0-4.0) 05/09/21 15: CK/CKMB % Calc 7.7 % (<4) 05/09/21 15:27 Troponin I High Sens 12.3 ng/L (4.0-60.0) 05/09/21 15: B-Natriuretic Peptide 221 pg/mL (0-79) H 05/09/21 15:27 Total Protein 6.0 g/dL (6.4-8.2) L 05/11/21 06:12 Albumin 1.2 g/dL (3.4-5.0) L 05/11/21 06:12 Globulin 4.8 g/dL (2.5-4.5) H 05/11/21 06:12 Albumin/Globulin Ratio 0.3 Ratio (1.1-2.1) L 05/11/21 06:12 Specimen Type Clean catch urine 05/09/21 17:08 Urine Color [place] (YELLOW) 05/09/21 17:08 Urine Appearance Hazy (CLEAR) 05/09/21 17:08 Urine pH 6.0 (5.0 - 8.0) 05/09/21 17:08 Ur Specific [place] 1.020 (1.000-1.030) 05/09/21 17:08 Urine Protein 4+ (NEGATIVE) 05/09/21 17:08 Urine Glucose (UA) 3+ (NEGATIVE) 05/09/21 17:08 Urine Ketones 1+ (NEGATIVE) 05/09/21 17:08 Urine Occult Blood 5+ (NEGATIVE) 05/09/21 17:08 Urine Nitrite Positive (NEGATIVE) 05/09/21 17: Urine Bilirubin Negative (NEGATIVE) 05/09/21 17:08 Urine Urobilinogen 2+ (NORMAL) 05/09/21 17:08 Ur Leukocyte Esterase 3+ (NEGATIVE) 05/09/21 17:08 Urine RBC 10-20 /HPF (0-3) A 05/09/21 17:08 Urine WBC Tntc /HPF (0-5) A 05/09/21 17:08 Ur Squamous Epith Cells Rare /HPF (NEGATIVE) 05/09/21 17:08 Urine Bacteria 2+ /HPF (NEGATIVE) 05/09/21 17:08 Ur Culture Indicated? Yes/culture set up 05/09/21 17:08 SARS CoV-2 RNA Rapid SATHISH Negative (NEGATIVE) 05/09/21 17:40 Blood Type O POSITIVE 05/09/21 16:10 Antibody Screen Negative 05/09/21 16:10 Crossmatch See Detail 05/09/21 16:10 Plan (1) Bronchiolitis: Status: Acute (2) Acute cystitis: Status: Acute (3) Symptomatic anemia: Status: Acute (4) Hypokalemia: Status: Acute
[2021-05-11] MEDS: NovoLIN R (or HumuLIN R) SC PRN ×3 (10:47→20:40)
[2021-05-11] MEDS: TESSALON PERLES PO SCH ×2 (13:58→21:10)
[2021-05-11 14:22] LABS: HEMATOCRIT 27.1 % (36.0-47.0); HEMOGLOBIN 8.6 g/dL (12.0-16.0)
[2021-05-11] MEDS: PEPCID TAB 20 MG PO SCH (20:28)
[2021-05-11] MEDS: TUSSIONEX PENNKINETIC SUSP PO SCH (20:36)
[2021-05-12] MEDS: NS 1,000 ML IV 1,000 ML IV SCH ×2 (00:30→13:51)
[2021-05-12] MEDS: ZOSYN VIAL 3.375 GRAMS 3.375 G in NS 100 ML IV 100 ML IV SCH (05:37)
[2021-05-12] MEDS: TESSALON PERLES PO SCH ×3 (05:38→21:17)
[2021-05-12 06:25] LABS: BASOPHILS % (AUTO) 0.1 % (0.2-1.0); HEMATOCRIT 26.6 % (36.0-47.0); HEMOGLOBIN 8.5 g/dL (12.0-16.0); LYMPHOCYTES # (AUTO) 0.7 X10^3/uL (1.3-2.9); LYMPHOCYTES % (AUTO) 2.4 % (21.0-51.0); MEAN CORPUSCULAR HEMOGLOBIN 24.7 pg (27.0-34.0); MEAN CORPUSCULAR HGB CONC 31.7 g/dL (33.0-35.0); MEAN CORPUSCULAR VOLUME 77.9 fL (80.0-100.0); MEAN PLATELET VOLUME 8.9 fL (7.4-11.0); MONOCYTES # (AUTO) 1.4 x10^3/uL (0.3-0.8); MONOCYTES % (AUTO) 4.9 % (0.0-13.0); NEUTROPHILS # (AUTO) 26.5 x10^3/uL (2.2-4.8); NEUTROPHILS % (AUTO) 92.6 % (42.0-75.0); RED BLOOD COUNT 3.42 X10^6/uL (3.5-5.4); WHITE BLOOD COUNT 28.6 X10^3/uL (3.6-10.0)
[2021-05-12 06:31] LABS: ALANINE AMINOTRANSFERASE 24 Units/L (12-78); ALBUMIN 1.3 g/dL (3.4-5.0); ALKALINE PHOSPHATASE 149 Units/L (46-116); ASPARTATE AMINO TRANSFERASE 31 Units/L (15-37); BLOOD UREA NITROGEN 5 mg/dL (7-18); CALCIUM 7.6 mg/dL (8.5-10.1); CARBON DIOXIDE 24.2 mmol/L (21-32); CHLORIDE 98 mmol/L (98-107); COR CA(FOR HYPOALB) 9.8 mg/dL (8.5-10.1); COR NA(FOR HYPERGLY) 138 mmol/L (136-145); CREATININE 0.43 mg/dL (0.55-1.02); SODIUM 135 mmol/L (136-145); TOTAL PROTEIN 6.2 g/dL (6.4-8.2); eGFR NON BLACK RACES > 60 (>60)
[2021-05-12] MEDS: NovoLIN R (or HumuLIN R) SC PRN ×4 (06:33→20:34)
[2021-05-12 07:10] LABS: PLATELET MORPHOLOGY COMMENT NORMAL (NORMAL)
[2021-05-12 07:11] LABS: ANISOCYTOSIS SLIGHT; BAND NEUTROPHILS % 1 % (0-10); HYPOCHROMASIA SLIGHT; METAMYELOCYTES % 3; MICROCYTOSIS SLIGHT; MYELOCYTES % 1
[2021-05-12] MEDS: COREG TAB 25 MG PO SCH ×2 (08:51→20:26)
[2021-05-12] MEDS: PULMICORT NEB TX 0.5 MG NEB SCH ×2 (09:30→20:26)
[2021-05-12] MEDS: XOPENEX 1.25 MG/3 ML NEBULE NEB SCH ×4 (09:30→20:26)
[2021-05-12] MEDS: LEVAQUIN PREMIX IV 750 MG 750 MG/150 ML BAG IV SCH (09:53)
[2021-05-12] MEDS: PROTONIX TAB 40 MG PO SCH (09:53)
--- NOTE | 2021-05-12 10:13 | PCM.PROG ---
Progress Note Progress Note for Day of Date of Exam: 05/12/21 Subjective Subjective: Pt is a 26 year old female past medical history of Sarcoidosis, CHF, and hypertension admitted for Bronchiolitis, Symptomatic anemia, Acute cystitis, and now Salmonella bacteremia. Blood culture 2/2 positive for Salmonella species. Patient is immuno-compromised and is on chronic steroid treatment for sarcoidosis. This morning patient reports feeling some improvement. Her respiratory status is back to baseline. Labs/imaging: Wbc 28, Hgb 8.5, Plt 191, Na 135, K 3.6, Creatinine 0.43, Glucose 219, Urine culture > 3 organisms, repeat urine culture NGTD. Repeat Blood cultures positive prelim gram negative rods. Pt has received a total of 2 units packed red blood cells for anemia, hemoglobin has stabilized. Will change antibiotics from Zosyn Q8h to IV Levaquin 750mg daily. Discontinue IV Solumedrol 40mg. Continue with scheduled bronchodilators and home medications. She will require picc line once we get a set of negative blood cultures. Will continue to closely monitor and follow up labs in the morning. Past Medical Family Social History Past Med/Fam/Surg Hx: No changes since H&P Allergies: Allergies No Known Drug Allergies Allergy (Verified 11/18/17 13:59) Review of Systems ROS: No change since H&P Vital Signs and I&O's Vital Signs: Temperature 97.9 F Pulse Rate [Brachial] 109 Pulse Rate 103 Respiratory Rate 20 Blood Pressure [Left Arm] 112/67 Blood Pressure 100/70 O2 Sat by Pulse Oximetry 98 Intake and Output: Intake & Output 05/09/21 05/10/21 05/11/21 05/12/21 22:59 23:59 23:59 23:59 Intake Total 1829 / 1829 2980 / 2980 Output Total 800 / 800 Balance 1029 / 1029 2980 / 2980 Physical Exam Oriented: Normal Eyes: Normal Ear: Normal Nose: Normal Throat: Normal Respiratory: Normal Cardiovascular: Normal : Normal Auscultation: Bowel Sounds: Normal Tenderness: Normal Skin: Normal Musculoskeletal: Normal Psychiatric: Normal Mood Description: Calm and Appropriate Affect: Normal Speech Pattern: Clear and Appropriate Laboratory and Diagnostics Result Diagrams: 05/12/21 05:43 05/12/21 05:43 Labs: 05/11/21 13:00 Urine,Clean Catch Urine Culture - Preliminary 05/09/21 15:27 Blood Blood Culture - Final Salmonella Species 05/09/21 15:19 Blood Blood Culture - Final Salmonella Species 05/11/21 10:43 Blood Blood Culture - Preliminary 05/11/21 10:25 Blood Blood Culture - Preliminary 05/09/21 17:08 Urine,Clean Catch Urine Culture - Final Laboratory WBC 28.6 X10^3/uL (3.6-10.0) H 05/12/21 05:43 RBC 3.42 X10^6/uL (3.5-5.4) L 05/12/21 05:43 Hgb 8.5 g/dL (12.0-16.0) L 05/12/21 05:43 Hct 26.6 % (36.0-47.0) L 05/12/21 05:43 MCV 77.9 fL (80.0-100.0) L 05/12/21 05:43 MCH 24.7 pg (27.0-34.0) L 05/12/21 05:43 MCHC 31.7 g/dL (33.0-35.0) L 05/12/21 05:43 RDW 18.0 % (11.6-16.5) H 05/12/21 05:43 Plt Count 191 X10^3/uL (150.0-450.0) 05/12/21 05:43 Plt Count Comment Adequate (ADEQUATE) 05/12/21 05:43 MPV 8.9 fL (7.4-11.0) 05/12/21 05:43 Neut % (Auto) 92.6 % (42.0-75.0) H 05/12/21 05:43 Lymph % (Auto) 2.4 % (21.0-51.0) L 05/12/21 05:43 [place] % (Auto) 4.9 % (0.0-13.0) 05/12/21 05:43 Eos % (Auto) 0.0 % (0.9-2.9) L 05/12/21 05:43 Baso % (Auto) 0.1 % (0.2-1.0) L 05/12/21 05:43 Neut # (Auto) 26.5 x10^3/uL (2.2-4.8) H 05/12/21 05:43 Lymph # (Auto) 0.7 X10^3/uL (1.3-2.9) L 05/12/21 05:43 [place] # (Auto) 1.4 x10^3/uL (0.3-0.8) H 05/12/21 05:43 Eos # (Auto) 0.0 x10^3/uL (0.0-0.2) 05/12/21 05:43 Baso # (Auto) 0.0 X10^3/uL (0.0-0.1) 05/12/21 05:43 Absolute Nucleated RBC 0.8 /100WBC 05/12/21 05:43 Total Counted 100 05/12/21 05:43 Neutrophils % (Manual) 85 % (39-76) H 05/12/21 05:43 Band Neutrophils % 1 % (0-10) 05/12/21 05:43 Lymphocytes % (Manual) 7 % (13-43) L 05/12/21 05:43 Monocytes % (Manual) 3 % (4-9) L 05/12/21 05:43 Metamyelocytes % 3 05/12/21 05:43 Myelocytes % 1 05/12/21 05:43 Nucleated RBCs 2 05/11/21 06:12 Plt Morphology Comment Normal (NORMAL) 05/12/21 05:43 RBC Morphology Abnormal (NORMAL) A 05/12/21 05:43 Hypochromasia Slight A 05/12/21 05:43 Anisocytosis Slight A 05/12/21 05:43 Microcytosis Slight A 05/12/21 05:43 Target Cells Present 05/10/21 07:30 Tear Drop Cells Present 05/09/21 15:27 PT 17.0 SECONDS (11.8-14.3) 05/09/21 15:27 INR Target Range - 05/09/21 15: INR 1.46 (0.8-1.3) H 05/09/21 15:27 APTT 25.1 SECONDS (22.9-36.5) 05/09/21 15:27 PTT Comment - 05/09/21 15:27 Sample Site Rr 05/09/21 15:15 ABG pH 7.530 (7.35-7.45) H 05/09/21 15:15 ABG pCO2 27.0 mmHg (35.0-45.0) L 05/09/21 15:15 ABG pO2 74.0 mmHg (80.0-100.0) L 05/09/21 15:15 ABG HCO3 22.6 mmol/L (22-26) 05/09/21 15:15 ABG O2 Saturation 96.0 % (90-100) 05/09/21 15:15 ABG Base Excess 0.9 mmol/L (-2.0-2.0) 05/09/21 15:15 Ti Test Pos 05/09/21 15:15 A-a Gradient 42.0 mmHg 05/09/21 15:15 FiO2 21.0 05/09/21 15:15 Blood Gas Comments Pt betty well cdn 05/09/21 15:15 Sodium 135 mmol/L (136-145) L 05/12/21 05:43 Corrected Sodium 138 mmol/L (136-145) 05/12/21 05:43 Potassium 3.6 mmol/L (3.5-5.1) 05/12/21 05:43 Chloride 98 mmol/L (98-107) 05/12/21 05:43 Carbon Dioxide 24.2 mmol/L (21-32) 05/12/21 05:43 BUN 5 mg/dL (7-18) L 05/12/21 05:43 Creatinine 0.43 mg/dL (0.55-1.02) L 05/12/21 05:43 Est GFR (MDRD) Af Amer > 60 (>60) 05/12/21 05:43 Est GFR (MDRD) Non-Af > 60 (>60) 05/12/21 05:43 Glucose 219 mg/dL (65-99) H 05/12/21 05:43 POC Glucose (mg/dL) 211 mg/dL (65-99) H 05/12/21 06:08 Lactic Acid 2.0 mmol/L (0.4-2.0) 05/10/21 07:30 Calcium 7.6 mg/dL (8.5-10.1) L 05/12/21 05:43 Corrected Calcium 9.8 mg/dL (8.5-10.1) 05/12/21 05:43 Magnesium 2.5 mg/dL (1.7-2.9) 05/11/21 06:12 Total Bilirubin 1.00 mg/dL (0.2-1.0) 05/12/21 05:43 AST 31 Units/L (15-37) 05/12/21 05:43 ALT 24 Units/L (12-78) 05/12/21 05:43 Alkaline Phosphatase 149 Units/L (46-116) H 05/12/21 05:43 Creatine Kinase 13 Units/L (26-192) L 05/09/21 15:27 CK-MB (CK-2) < 1.0 ng/mL (0-4.0) 05/09/21 15: CK/CKMB % Calc 7.7 % (<4) 05/09/21 15:27 Troponin I High Sens 12.3 ng/L (4.0-60.0) 05/09/21 15: B-Natriuretic Peptide 221 pg/mL (0-79) H 05/09/21 15:27 Total Protein 6.2 g/dL (6.4-8.2) L 05/12/21 05:43 Albumin 1.3 g/dL (3.4-5.0) L 05/12/21 05:43 Globulin 4.9 g/dL (2.5-4.5) H 05/12/21 05:43 Albumin/Globulin Ratio 0.3 Ratio (1.1-2.1) L 05/12/21 05:43 Specimen Type Clean catch urine 05/09/21 17:08 Urine Color [place] (YELLOW) 05/09/21 17:08 Urine Appearance Hazy (CLEAR) 05/09/21 17:08 Urine pH 6.0 (5.0 - 8.0) 05/09/21 17:08 Ur Specific [place] 1.020 (1.000-1.030) 05/09/21 17:08 Urine Protein 4+ (NEGATIVE) 05/09/21 17:08 Urine Glucose (UA) 3+ (NEGATIVE) 05/09/21 17:08 Urine Ketones 1+ (NEGATIVE) 05/09/21 17:08 Urine Occult Blood 5+ (NEGATIVE) 05/09/21 17:08 Urine Nitrite Positive (NEGATIVE) 05/09/21 17:08 Urine Bilirubin Negative (NEGATIVE) 05/09/21 17:08 Urine Urobilinogen 2+ (NORMAL) 05/09/21 17:08 Ur Leukocyte Esterase 3+ (NEGATIVE) 05/09/21 17:08 Urine RBC 10-20 /HPF (0-3) A 05/09/21 17:08 Urine WBC Tntc /HPF (0-5) A 05/09/21 17:08 Ur Squamous Epith Cells Rare /HPF (NEGATIVE) 05/09/21 17:08 Urine Bacteria 2+ /HPF (NEGATIVE) 05/09/21 17:08 Ur Culture Indicated? Yes/culture set up 05/09/21 17:08 SARS CoV-2 RNA Rapid SATHISH Negative (NEGATIVE) 05/09/21 17:40 Blood Type O POSITIVE 05/09/21 16:10 Antibody Screen Negative 05/09/21 16:10 Crossmatch See Detail 05/09/21 16:10 Plan (1) Bronchiolitis: Status: Acute (2) Acute cystitis: Status: Acute (3) Symptomatic anemia: Status: Acute (4) Hypokalemia: Status: Acute
--- NOTE | 2021-05-12 17:47 | RAD ---
HISTORYPICC LINE PLACEMENT Relevant Clinical InformationSTUDYCHEST, [id number] scan dated 09/21/2020.FINDINGSMassive mediastinal and hilar adenopathy similar to the earlier study. New left sided catheter with tip in the superior vena cava in good position. Right base opacity which could be atelectasis or infiltrate. No pneumothorax. Small right pleural effusion.IMPRESSIONLeft-sided line in good position. Massive adenopathy and nonspecific right base opacity is small 8 fusion.Electronically signed by: Marcus Gilbert (May 12, 2021 17:46:32)
--- NOTE | 2021-05-12 17:52 | DR.UPDATE ---
H&P Update History and Physical Update: History and Physical reviewed and patient examined. Changes noted: NO Yes with the following:will place poicc for long-term abx H&P Reviewed: Yes Patient was examined?: Yes Procedures (ALL) - Central Line Placement PCM.CLCO: written consent Time out performed: Yes Patient placed pm monitor/pulse ox: Yes MD prep: mask, gown, gloves, other Centrial line prep: chlorhexidine scrub, sterile drapes applied Local anesthsia used: lidocane 1% Ultrasound used for placement: Yes (left brachial id'd via u/s. unable to vis basilic.) Central line lumen ininserted: double (5.5fr arrowpicc. 41cm inserted, 9cm exposed) Post procedure: good blood return, all ports aspirated, flushed,capped, sterile dressing applied Post procedure xray: tip oc catheter in good position (tip in distal svc per cxr report), no pneumothorax seen Patient tolerated procedure: Yes Complications: none
[2021-05-12] MEDS: TYLENOL 325 MG TAB PO PRN (20:25)
[2021-05-12] MEDS: PEPCID TAB 20 MG PO SCH (20:26)
[2021-05-12] MEDS: TUSSIONEX PENNKINETIC SUSP PO SCH (20:27)
[2021-05-13] MEDS: NS 1,000 ML IV 1,000 ML IV SCH (02:30)
[2021-05-13] MEDS: TESSALON PERLES PO SCH ×3 (05:52→21:51)
[2021-05-13] MEDS: NovoLIN R (or HumuLIN R) SC PRN ×3 (05:54→17:01)
[2021-05-13 06:47] LABS: BASOPHILS % (AUTO) 0.1 % (0.2-1.0); HEMATOCRIT 27.8 % (36.0-47.0); HEMOGLOBIN 8.8 g/dL (12.0-16.0); LYMPHOCYTES # (AUTO) 0.7 X10^3/uL (1.3-2.9); LYMPHOCYTES % (AUTO) 3.9 % (21.0-51.0); MEAN CORPUSCULAR HEMOGLOBIN 24.8 pg (27.0-34.0); MEAN CORPUSCULAR HGB CONC 31.6 g/dL (33.0-35.0); MEAN CORPUSCULAR VOLUME 78.7 fL (80.0-100.0); MEAN PLATELET VOLUME 8.9 fL (7.4-11.0); MONOCYTES # (AUTO) 0.8 x10^3/uL (0.3-0.8); MONOCYTES % (AUTO) 4.4 % (0.0-13.0); NEUTROPHILS # (AUTO) 17.1 x10^3/uL (2.2-4.8); NEUTROPHILS % (AUTO) 91.6 % (42.0-75.0); RED BLOOD COUNT 3.53 X10^6/uL (3.5-5.4); WHITE BLOOD COUNT 18.7 X10^3/uL (3.6-10.0)
[2021-05-13 07:08] LABS: ALANINE AMINOTRANSFERASE 30 Units/L (12-78); ALKALINE PHOSPHATASE 135 Units/L (46-116); ASPARTATE AMINO TRANSFERASE 31 Units/L (15-37); BLOOD UREA NITROGEN 5 mg/dL (7-18); CALCIUM 7.9 mg/dL (8.5-10.1); CARBON DIOXIDE 26.5 mmol/L (21-32); CHLORIDE 100 mmol/L (98-107); COR NA(FOR HYPERGLY) 138 mmol/L (136-145); CREATININE 0.44 mg/dL (0.55-1.02); SODIUM 136 mmol/L (136-145); TOTAL PROTEIN 6.2 g/dL (6.4-8.2); eGFR NON BLACK RACES > 60 (>60)
[2021-05-13 07:22] LABS: ALBUMIN 1.3 g/dL (3.4-5.0); COR CA(FOR HYPOALB) 10.1 mg/dL (8.5-10.1)
[2021-05-13 07:35] LABS: BAND NEUTROPHILS % 6 % (0-10)
[2021-05-13 07:36] LABS: ANISOCYTOSIS SLIGHT; METAMYELOCYTES % 2; MICROCYTOSIS SLIGHT; PLATELET MORPHOLOGY COMMENT NORMAL (NORMAL)
[2021-05-13 07:37] LABS: HYPOCHROMASIA SLIGHT; TARGET CELLS PRESENT
--- NOTE | 2021-05-13 08:12 | PCM.PROG ---
Progress Note Progress Note for Day of Date of Exam: 05/13/21 Subjective Subjective: Pt is a 26 year old female past medical history of Sarcoidosis, CHF, and hypertension admitted for Bronchiolitis, Symptomatic anemia, Acute cystitis, and now Salmonella bacteremia. Blood culture 2/2 positive for Salmonella species on 05/09. Patient is immuno-compromised and is on chronic steroid treatment for sarcoidosis. This morning patient remains stable, no acute events overnight. She did have PICC line placed. Her respiratory status is back to baseline. Labs/imaging: Wbc 18.7, Hgb 8.8, Plt 225, Na 136, K 3.2, Creatinine 0.44, Glucose 198, Urine culture > 3 organisms, repeat urine culture NGTD. Repeat Blood cultures positive prelim gram negative rods. Pt has received a total of 2 units packed red blood cells for anemia, hemoglobin has stabilized. Pt started on IV Levaquin 750mg daily (05/12), continue treatment. Replete potassium per protocol. Continue with scheduled bronchodilators and home medications. Will continue to closely monitor and follow up labs in the morning. Past Medical Family Social History Past Med/Fam/Surg Hx: No changes since H&P Allergies: Allergies No Known Drug Allergies Allergy (Verified 11/18/17 13:59) Review of Systems ROS: No change since H&P Vital Signs and I&O's Vital Signs: Temperature 97.5 F Pulse Rate [Brachial] 110 Pulse Rate 110 Respiratory Rate 18 Blood Pressure [Left Arm] 117/73 Blood Pressure 100/70 O2 Sat by Pulse Oximetry 97 Intake and Output: Intake & Output 05/10/21 05/11/21 05/12/21 05/13/21 23:59 23:59 23:59 23:59 Intake Total 1829 / 1829 3895 / 3895 472 / 472 Output Total 800 / 800 Balance 1029 / 1029 3895 / 3895 472 / 472 Physical Exam Oriented: Normal Eyes: Normal Ear: Normal Nose: Normal Throat: Normal Respiratory: Normal Cardiovascular: Normal : Normal Auscultation: Bowel Sounds: Normal Tenderness: Normal Skin: Normal Musculoskeletal: Normal Psychiatric: Normal Mood Description: Calm and Appropriate Affect: Normal Speech Pattern: Clear and Appropriate Laboratory and Diagnostics Result Diagrams: 05/13/21 06:00 05/13/21 06:00 Labs: 05/11/21 13:00 Urine,Clean Catch Urine Culture - Preliminary 05/09/21 15:27 Blood Blood Culture - Final Salmonella Species 05/09/21 15:19 Blood Blood Culture - Final Salmonella Species 05/11/21 10:43 Blood Blood Culture - Preliminary 05/11/21 10:25 Blood Blood Culture - Preliminary 05/09/21 17:08 Urine,Clean Catch Urine Culture - Final Laboratory WBC 18.7 X10^3/uL (3.6-10.0) H D 05/13/21 06:00 RBC 3.53 X10^6/uL (3.5-5.4) 05/13/21 06:00 Hgb 8.8 g/dL (12.0-16.0) L 05/13/21 06:00 Hct 27.8 % (36.0-47.0) L 05/13/21 06:00 MCV 78.7 fL (80.0-100.0) L 05/13/21 06:00 MCH 24.8 pg (27.0-34.0) L 05/13/21 06:00 MCHC 31.6 g/dL (33.0-35.0) L 05/13/21 06:00 RDW 18.0 % (11.6-16.5) H 05/13/21 06:00 Plt Count 225 X10^3/uL (150.0-450.0) 05/13/21 06:00 Plt Count Comment Adequate (ADEQUATE) 05/13/21 06:00 MPV 8.9 fL (7.4-11.0) 05/13/21 06:00 Neut % (Auto) 91.6 % (42.0-75.0) H 05/13/21 06:00 Lymph % (Auto) 3.9 % (21.0-51.0) L 05/13/21 06:00 [place] % (Auto) 4.4 % (0.0-13.0) 05/13/21 06:00 Eos % (Auto) 0.0 % (0.9-2.9) L 05/13/21 06:00 Baso % (Auto) 0.1 % (0.2-1.0) L 05/13/21 06:00 Neut # (Auto) 17.1 x10^3/uL (2.2-4.8) H 05/13/21 06:00 Lymph # (Auto) 0.7 X10^3/uL (1.3-2.9) L 05/13/21 06:00 [place] # (Auto) 0.8 x10^3/uL (0.3-0.8) 05/13/21 06:00 Eos # (Auto) 0.0 x10^3/uL (0.0-0.2) 05/13/21 06:00 Baso # (Auto) 0.0 X10^3/uL (0.0-0.1) 05/13/21 06:00 Absolute Nucleated RBC 0.6 /100WBC 05/13/21 06:00 Total Counted 100 05/13/21 06:00 Neutrophils % (Manual) 83 % (39-76) H 05/13/21 06:00 Band Neutrophils % 6 % (0-10) 05/13/21 06:00 Lymphocytes % (Manual) 7 % (13-43) L 05/13/21 06:00 Monocytes % (Manual) 2 % (4-9) L 05/13/21 06:00 Metamyelocytes % 2 05/13/21 06:00 Myelocytes % 1 05/12/21 05:43 Nucleated RBCs 2 05/11/21 06:12 Plt Morphology Comment Normal (NORMAL) 05/13/21 06:00 RBC Morphology Abnormal (NORMAL) A 05/13/21 06:00 Hypochromasia Slight A 05/13/21 06:00 Anisocytosis Slight A 05/13/21 06:00 Microcytosis Slight A 05/13/21 06:00 Target Cells Present 05/13/21 06:00 Tear Drop Cells Present 05/09/21 15:27 PT 17.0 SECONDS (11.8-14.3) 05/09/21 15:27 INR Target Range - 05/09/21 15:27 INR 1.46 (0.8-1.3) H 05/09/21 15:27 APTT 25.1 SECONDS (22.9-36.5) 05/09/21 15:27 PTT Comment - 05/09/21 15:27 Sample Site Rr 05/09/21 15:15 ABG pH 7.530 (7.35-7.45) H 05/09/21 15:15 ABG pCO2 27.0 mmHg (35.0-45.0) L 05/09/21 15:15 ABG pO2 74.0 mmHg (80.0-100.0) L 05/09/21 15:15 ABG HCO3 22.6 mmol/L (22-26) 05/09/21 15:15 ABG O2 Saturation 96.0 % (90-100) 05/09/21 15:15 ABG Base Excess 0.9 mmol/L (-2.0-2.0) 05/09/21 15:15 Ti Test Pos 05/09/21 15:15 A-a Gradient 42.0 mmHg 05/09/21 15:15 FiO2 21.0 05/09/21 15:15 Blood Gas Comments Pt betty well cdn 05/09/21 15:15 Sodium 136 mmol/L (136-145) 05/13/21 06:00 Corrected Sodium 138 mmol/L (136-145) 05/13/21 06:00 Potassium 3.2 mmol/L (3.5-5.1) L 05/13/21 06:00 Chloride 100 mmol/L (98-107) 05/13/21 06:00 Carbon Dioxide 26.5 mmol/L (21-32) 05/13/21 06:00 BUN 5 mg/dL (7-18) L 05/13/21 06:00 Creatinine 0.44 mg/dL (0.55-1.02) L 05/13/21 06:00 Est GFR (MDRD) Af Amer > 60 (>60) 05/13/21 06:00 Est GFR (MDRD) Non-Af > 60 (>60) 05/13/21 06:00 Glucose 198 mg/dL (65-99) H 05/13/21 06:00 POC Glucose (mg/dL) 177 mg/dL (65-99) H 05/13/21 04:58 Lactic Acid 2.0 mmol/L (0.4-2.0) 05/10/21 07:30 Calcium 7.9 mg/dL (8.5-10.1) L 05/13/21 06:00 Corrected Calcium 10.1 mg/dL (8.5-10.1) 05/13/21 06:00 Magnesium 2.5 mg/dL (1.7-2.9) 05/11/21 06:12 Total Bilirubin 0.90 mg/dL (0.2-1.0) 05/13/21 06:00 AST 31 Units/L (15-37) 05/13/21 06:00 ALT 30 Units/L (12-78) 05/13/21 06:00 Alkaline Phosphatase 135 Units/L (46-116) H 05/13/21 06:00 Creatine Kinase 13 Units/L (26-192) L 05/09/21 15:27 CK-MB (CK-2) < 1.0 ng/mL (0-4.0) 05/09/21 15: CK/CKMB % Calc 7.7 % (<4) 05/09/21 15: Troponin I High Sens 12.3 ng/L (4.0-60.0) 05/09/21 15: B-Natriuretic Peptide 221 pg/mL (0-79) H 05/09/21 15:27 Total Protein 6.2 g/dL (6.4-8.2) L 05/13/21 06:00 Albumin 1.3 g/dL (3.4-5.0) L 05/13/21 06:00 Globulin 4.9 g/dL (2.5-4.5) H 05/13/21 06:00 Albumin/Globulin Ratio 0.3 Ratio (1.1-2.1) L 05/13/21 06:00 Specimen Type Clean catch urine 05/09/21 17:08 Urine Color Molly (YELLOW) 05/09/21 17:08 Urine Appearance Hazy (CLEAR) 05/09/21 17:08 Urine pH 6.0 (5.0 - 8.0) 05/09/21 17:08 Ur Specific [place] 1.020 (1.000-1.030) 05/09/21 17:08 Urine Protein 4+ (NEGATIVE) 05/09/21 17:08 Urine Glucose (UA) 3+ (NEGATIVE) 05/09/21 17:08 Urine Ketones 1+ (NEGATIVE) 05/09/21 17:08 Urine Occult Blood 5+ (NEGATIVE) 05/09/21 17:08 Urine Nitrite Positive (NEGATIVE) 05/09/21 17:08 Urine Bilirubin Negative (NEGATIVE) 05/09/21 17: Urine Urobilinogen 2+ (NORMAL) 05/09/21 17:08 Ur Leukocyte Esterase 3+ (NEGATIVE) 05/09/21 17:08 Urine RBC 10-20 /HPF (0-3) A 05/09/21 17:08 Urine WBC Tntc /HPF (0-5) A 05/09/21 17:08 Ur Squamous Epith Cells Rare /HPF (NEGATIVE) 05/09/21 17:08 Urine Bacteria 2+ /HPF (NEGATIVE) 05/09/21 17:08 Ur Culture Indicated? Yes/culture set up 05/09/21 17:08 SARS CoV-2 RNA Rapid SATHISH Negative (NEGATIVE) 05/09/21 17:40 Blood Type O POSITIVE 05/09/21 16:10 Antibody Screen Negative 05/09/21 16:10 Crossmatch See Detail 05/09/21 16:10 Plan (1) Bronchiolitis: Status: Acute (2) Acute cystitis: Status: Acute (3) Symptomatic anemia: Status: Acute (4) Hypokalemia: Status: Acute (5) Salmonella bacteremia: Status: Acute
[2021-05-13] MEDS: XOPENEX 1.25 MG/3 ML NEBULE NEB SCH ×4 (09:00→20:43)
[2021-05-13] MEDS: PULMICORT NEB TX 0.5 MG NEB SCH ×2 (09:00→20:43)
[2021-05-13] MEDS: COREG TAB 25 MG PO SCH ×2 (09:29→21:51)
[2021-05-13] MEDS: PROTONIX TAB 40 MG PO SCH (09:29)
[2021-05-13] MEDS: LEVAQUIN PREMIX IV 750 MG 750 MG/150 ML BAG IV SCH (09:29)
[2021-05-13] MEDS: TUSSIONEX PENNKINETIC SUSP PO SCH (21:52)
[2021-05-13] MEDS: TYLENOL 325 MG TAB PO PRN (21:52)
[2021-05-13] MEDS: PEPCID TAB 20 MG PO SCH (21:53)
[2021-05-14] MEDS: NS 1,000 ML IV 1,000 ML IV SCH (04:20)
[2021-05-14] MEDS: TESSALON PERLES PO SCH ×3 (05:25→21:45)
[2021-05-14] MEDS: TYLENOL 325 MG TAB PO PRN (05:26)
[2021-05-14 06:39] LABS: BASOPHILS # (AUTO) 0.1 X10^3/uL (0.0-0.1); BASOPHILS % (AUTO) 0.5 % (0.2-1.0); EOSINOPHILS % (AUTO) 0.1 % (0.9-2.9); HEMATOCRIT 29.2 % (36.0-47.0); HEMOGLOBIN 9.2 g/dL (12.0-16.0); LYMPHOCYTES # (AUTO) 1.1 X10^3/uL (1.3-2.9); LYMPHOCYTES % (AUTO) 5.7 % (21.0-51.0); MEAN CORPUSCULAR HEMOGLOBIN 24.8 pg (27.0-34.0); MEAN CORPUSCULAR HGB CONC 31.4 g/dL (33.0-35.0); MEAN CORPUSCULAR VOLUME 79.1 fL (80.0-100.0); MEAN PLATELET VOLUME 8.6 fL (7.4-11.0); MONOCYTES # (AUTO) 0.9 x10^3/uL (0.3-0.8); MONOCYTES % (AUTO) 4.5 % (0.0-13.0); NEUTROPHILS % (AUTO) 89.2 % (42.0-75.0); RED BLOOD COUNT 3.69 X10^6/uL (3.5-5.4); WHITE BLOOD COUNT 20.2 X10^3/uL (3.6-10.0)
[2021-05-14 07:09] LABS: ALANINE AMINOTRANSFERASE 30 Units/L (12-78); ALBUMIN 1.6 g/dL (3.4-5.0); ALKALINE PHOSPHATASE 115 Units/L (46-116); ASPARTATE AMINO TRANSFERASE 21 Units/L (15-37); BLOOD UREA NITROGEN 6 mg/dL (7-18); CALCIUM 8.4 mg/dL (8.5-10.1); CARBON DIOXIDE 25.9 mmol/L (21-32); CHLORIDE 100 mmol/L (98-107); COR CA(FOR HYPOALB) 10.3 mg/dL (8.5-10.1); COR NA(FOR HYPERGLY) 140 mmol/L (136-145); CREATININE 0.49 mg/dL (0.55-1.02); SODIUM 138 mmol/L (136-145); TOTAL PROTEIN 6.3 g/dL (6.4-8.2); eGFR NON BLACK RACES > 60 (>60)
[2021-05-14 07:49] LABS: BAND NEUTROPHILS % 3 % (0-10)
[2021-05-14 07:50] LABS: ANISOCYTOSIS SLIGHT; HYPOCHROMASIA SLIGHT; MICROCYTOSIS SLIGHT; PLATELET MORPHOLOGY COMMENT NORMAL (NORMAL)
[2021-05-14] MEDS: PULMICORT NEB TX 0.5 MG NEB SCH ×2 (09:25→20:32)
[2021-05-14] MEDS: XOPENEX 1.25 MG/3 ML NEBULE NEB SCH ×4 (09:25→20:32)
[2021-05-14] MEDS: K-DUR TAB 20 MEQ PO PRN (10:37)
[2021-05-14] MEDS: COREG TAB 25 MG PO SCH ×2 (10:37→21:35)
[2021-05-14] MEDS: PROTONIX TAB 40 MG PO SCH (10:37)
[2021-05-14] MEDS: LEVAQUIN PREMIX IV 750 MG 750 MG/150 ML BAG IV SCH (10:38)
[2021-05-14] MEDS: PEPCID TAB 20 MG PO SCH (21:45)
[2021-05-14] MEDS: TUSSIONEX PENNKINETIC SUSP PO SCH (21:45)
[2021-05-14] MEDS: NovoLIN R (or HumuLIN R) SC PRN (22:24)
[2021-05-15] MEDS: NS 1,000 ML IV 1,000 ML IV SCH ×3 (01:58→17:45)
[2021-05-15] MEDS: TESSALON PERLES PO SCH ×3 (05:27→21:28)
[2021-05-15] MEDS: NovoLIN R (or HumuLIN R) SC PRN ×2 (05:27→21:31)
[2021-05-15 06:07] LABS: BASOPHILS # (AUTO) 0.1 X10^3/uL (0.0-0.1); BASOPHILS % (AUTO) 0.4 % (0.2-1.0); EOSINOPHILS # (AUTO) 0.4 x10^3/uL (0.0-0.2); EOSINOPHILS % (AUTO) 1.8 % (0.9-2.9); HEMOGLOBIN 8.4 g/dL (12.0-16.0); LYMPHOCYTES # (AUTO) 1.4 X10^3/uL (1.3-2.9); LYMPHOCYTES % (AUTO) 6.1 % (21.0-51.0); MEAN CORPUSCULAR HEMOGLOBIN 24.6 pg (27.0-34.0); MEAN CORPUSCULAR HGB CONC 30.9 g/dL (33.0-35.0); MEAN CORPUSCULAR VOLUME 79.4 fL (80.0-100.0); MEAN PLATELET VOLUME 8.9 fL (7.4-11.0); MONOCYTES # (AUTO) 1.1 x10^3/uL (0.3-0.8); MONOCYTES % (AUTO) 4.8 % (0.0-13.0); NEUTROPHILS # (AUTO) 19.7 x10^3/uL (2.2-4.8); NEUTROPHILS % (AUTO) 86.9 % (42.0-75.0); RED BLOOD COUNT 3.41 X10^6/uL (3.5-5.4); RED CELL DISTRIBUTION WIDTH 18.2 % (11.6-16.5); WHITE BLOOD COUNT 22.7 X10^3/uL (3.6-10.0)
[2021-05-15 06:16] LABS: ALANINE AMINOTRANSFERASE 23 Units/L (12-78); ALBUMIN 1.4 g/dL (3.4-5.0); ALKALINE PHOSPHATASE 103 Units/L (46-116); ASPARTATE AMINO TRANSFERASE 16 Units/L (15-37); BLOOD UREA NITROGEN 5 mg/dL (7-18); CALCIUM 8.2 mg/dL (8.5-10.1); CHLORIDE 101 mmol/L (98-107); COR CA(FOR HYPOALB) 10.3 mg/dL (8.5-10.1); COR NA(FOR HYPERGLY) 136 mmol/L (136-145); CREATININE 0.41 mg/dL (0.55-1.02); SODIUM 135 mmol/L (136-145); TOTAL PROTEIN 5.7 g/dL (6.4-8.2); eGFR NON BLACK RACES > 60 (>60)
[2021-05-15 07:01] LABS: BAND NEUTROPHILS % 4 % (0-10)
[2021-05-15 07:02] LABS: PLATELET MORPHOLOGY COMMENT NORMAL (NORMAL)
--- NOTE | 2021-05-15 08:58 | PCM.PROG ---
Progress Note Progress Note for Day of Date of Exam: 05/14/21 Subjective Subjective: Pt is a 26 year old female past medical history of Sarcoidosis, CHF, and hypertension admitted for Bronchiolitis, Symptomatic anemia, Acute cystitis, and now Salmonella bacteremia. Blood culture 2/2 positive for Salmonella species on 05/11. Repeat blood cultures pending. Patient is immuno-compromised and is on chronic steroid treatment for sarcoidosis. This morning patient remains stable, no acute events overnight. She has PICC line. Her respiratory status is at baseline. Labs/imaging: Wbc 20.2, Hgb 9.2, Plt 236, Na 138, K 3.2, Creatinine 0.49, Glucose 186, Urine culture > 3 organisms, repeat urine culture NGTD. She has received a total of 2 units packed red blood cells for anemia, hemoglobin is stabilized. Pt started on IV Levaquin 750mg daily (05/12), continue treatment. Replete potassium per protocol. Continue with scheduled bronchodilators and home medications. Will continue to closely monitor and follow up labs in the morning. Past Medical Family Social History Past Med/Fam/Surg Hx: No changes since H&P Allergies: Allergies No Known Drug Allergies Allergy (Verified 11/18/17 13:59) Review of Systems ROS: No change since H&P Vital Signs and I&O's Vital Signs: Temperature 98.6 F Pulse Rate [Brachial] 124 Pulse Rate 125 Respiratory Rate 24 Blood Pressure [Left Arm] 97/55 Blood Pressure 100/70 O2 Sat by Pulse Oximetry 94 Intake and Output: Intake & Output 05/12/21 05/13/21 05/14/21 05/15/21 23:59 23:59 23:59 23:59 Intake Total 3895 / 3895 2407 / 2407 1771 / 1771 762 / 762 Output Total Balance 3895 / 3895 2407 / 2407 1770 / 1770 762 / 762 Physical Exam Oriented: Normal Eyes: Normal Ear: Normal Nose: Normal Throat: Normal Respiratory: Normal Cardiovascular: Normal : Normal Auscultation: Bowel Sounds: Normal Tenderness: Normal Skin: Normal Musculoskeletal: Normal Psychiatric: Normal Mood Description: Calm and Appropriate Affect: Normal Speech Pattern: Clear and Appropriate Laboratory and Diagnostics Result Diagrams: 05/15/21 05:29 05/15/21 05:29 Labs: 05/11/21 10:43 Blood Blood Culture - Final Salmonella Species 05/11/21 10:25 Blood Blood Culture - Final Salmonella Species 05/11/21 13:00 Urine,Clean Catch Urine Culture - Final 05/09/21 15:27 Blood Blood Culture - Final Salmonella Species 05/09/21 15:19 Blood Blood Culture - Final Salmonella Species 05/09/21 17:08 Urine,Clean Catch Urine Culture - Final Laboratory WBC 22.7 X10^3/uL (3.6-10.0) H 05/15/21 05:29 RBC 3.41 X10^6/uL (3.5-5.4) L 05/15/21 05:29 Hgb 8.4 g/dL (12.0-16.0) L 05/15/21 05:29 Hct 27.0 % (36.0-47.0) L 05/15/21 05:29 MCV 79.4 fL (80.0-100.0) L 05/15/21 05:29 MCH 24.6 pg (27.0-34.0) L 05/15/21 05:29 MCHC 30.9 g/dL (33.0-35.0) L 05/15/21 05:29 RDW 18.2 % (11.6-16.5) H 05/15/21 05:29 Plt Count 247 X10^3/uL (150.0-450.0) 05/15/21 05:29 Plt Count Comment Adequate (ADEQUATE) 05/15/21 05:29 MPV 8.9 fL (7.4-11.0) 05/15/21 05:29 Neut % (Auto) 86.9 % (42.0-75.0) H 05/15/21 05:29 Lymph % (Auto) 6.1 % (21.0-51.0) L 05/15/21 05:29 [place] % (Auto) 4.8 % (0.0-13.0) 05/15/21 05:29 Eos % (Auto) 1.8 % (0.9-2.9) 05/15/21 05:29 Baso % (Auto) 0.4 % (0.2-1.0) 05/15/21 05:29 Neut # (Auto) 19.7 x10^3/uL (2.2-4.8) H 05/15/21 05:29 Lymph # (Auto) 1.4 X10^3/uL (1.3-2.9) 05/15/21 05:29 [place] # (Auto) 1.1 x10^3/uL (0.3-0.8) H 05/15/21 05:29 Eos # (Auto) 0.4 x10^3/uL (0.0-0.2) H 05/15/21 05:29 Baso # (Auto) 0.1 X10^3/uL (0.0-0.1) 05/15/21 05:29 Absolute Nucleated RBC 0.1 /100WBC 05/15/21 05:29 Total Counted 100 05/15/21 05:29 Neutrophils % (Manual) 88 % (39-76) H 05/15/21 05:29 Band Neutrophils % 4 % (0-10) 05/15/21 05:29 Lymphocytes % (Manual) 5 % (13-43) L 05/15/21 05:29 Monocytes % (Manual) 3 % (4-9) L 05/15/21 05:29 Metamyelocytes % 2 05/13/21 06:00 Myelocytes % 1 05/12/21 05:43 Nucleated RBCs 2 05/11/21 06:12 Plt Morphology Comment Normal (NORMAL) 05/15/21 05:29 RBC Morphology Normal (NORMAL) 05/15/21 05:29 Hypochromasia Slight A 05/14/21 06:18 Anisocytosis Slight A 05/14/21 06:18 Microcytosis Slight A 05/14/21 06:18 Target Cells Present 05/13/21 06:00 Tear Drop Cells Present 05/09/21 15:27 PT 17.0 SECONDS (11.8-14.3) 05/09/21 15:27 INR Target Range - 05/09/21 15:27 INR 1.46 (0.8-1.3) H 05/09/21 15:27 APTT 25.1 SECONDS (22.9-36.5) 05/09/21 15:27 PTT Comment - 05/09/21 15:27 Sample Site Rr 05/09/21 15:15 ABG pH 7.530 (7.35-7.45) H 05/09/21 15:15 ABG pCO2 27.0 mmHg (35.0-45.0) L 05/09/21 15:15 ABG pO2 74.0 mmHg (80.0-100.0) L 05/09/21 15:15 ABG HCO3 22.6 mmol/L (22-26) 05/09/21 15:15 ABG O2 Saturation 96.0 % (90-100) 05/09/21 15:15 ABG Base Excess 0.9 mmol/L (-2.0-2.0) 05/09/21 15:15 Ti Test Pos 05/09/21 15:15 A-a Gradient 42.0 mmHg 05/09/21 15:15 FiO2 21.0 05/09/21 15:15 Blood Gas Comments Pt betty well cdn 05/09/21 15:15 Sodium 135 mmol/L (136-145) L 05/15/21 05:29 Corrected Sodium 136 mmol/L (136-145) 05/15/21 05:29 Potassium 3.3 mmol/L (3.5-5.1) L 05/15/21 05:29 Chloride 101 mmol/L (98-107) 05/15/21 05:29 Carbon Dioxide 27.0 mmol/L (21-32) 05/15/21 05:29 BUN 5 mg/dL (7-18) L 05/15/21 05:29 Creatinine 0.41 mg/dL (0.55-1.02) L 05/15/21 05:29 Est GFR (MDRD) Af Amer > 60 (>60) 05/15/21 05:29 Est GFR (MDRD) Non-Af > 60 (>60) 05/15/21 05:29 Glucose 154 mg/dL (65-99) H 05/15/21 05:29 POC Glucose (mg/dL) 164 mg/dL (65-99) H 05/15/21 05:05 Lactic Acid 2.0 mmol/L (0.4-2.0) 05/10/21 07:30 Calcium 8.2 mg/dL (8.5-10.1) L 05/15/21 05:29 Corrected Calcium 10.3 mg/dL (8.5-10.1) H 05/15/21 05:29 Magnesium 1.7 mg/dL (1.7-2.9) 05/15/21 05:29 Total Bilirubin 0.70 mg/dL (0.2-1.0) 05/15/21 05:29 AST 16 Units/L (15-37) 05/15/21 05:29 ALT 23 Units/L (12-78) 05/15/21 05:29 Alkaline Phosphatase 103 Units/L (46-116) 05/15/21 05:29 Creatine Kinase 13 Units/L (26-192) L 05/09/21 15:27 CK-MB (CK-2) < 1.0 ng/mL (0-4.0) 05/09/21 15:27 CK/CKMB % Calc 7.7 % (<4) 05/09/21 15:27 Troponin I High Sens 12.3 ng/L (4.0-60.0) 05/09/21 15:27 B-Natriuretic Peptide 221 pg/mL (0-79) H 05/09/21 15:27 Total Protein 5.7 g/dL (6.4-8.2) L 05/15/21 05:29 Albumin 1.4 g/dL (3.4-5.0) L 05/15/21 05:29 Globulin 4.3 g/dL (2.5-4.5) 05/15/21 05:29 Albumin/Globulin Ratio 0.3 Ratio (1.1-2.1) L 05/15/21 05:29 Specimen Type Clean catch urine 05/09/21 17:08 Urine Color [place] (YELLOW) 05/09/21 17:08 Urine Appearance Hazy (CLEAR) 05/09/21 17:08 Urine pH 6.0 (5.0 - 8.0) 05/09/21 17:08 Ur Specific [place] 1.020 (1.000-1.030) 05/09/21 17:08 Urine Protein 4+ (NEGATIVE) 05/09/21 17:08 Urine Glucose (UA) 3+ (NEGATIVE) 05/09/21 17:08 Urine Ketones 1+ (NEGATIVE) 05/09/21 17:08 Urine Occult Blood 5+ (NEGATIVE) 05/09/21 17:08 Urine Nitrite Positive (NEGATIVE) 05/09/21 17:08 Urine Bilirubin Negative (NEGATIVE) 05/09/21 17:08 Urine Urobilinogen 2+ (NORMAL) 05/09/21 17:08 Ur Leukocyte Esterase 3+ (NEGATIVE) 05/09/21 17:08 Urine RBC 10-20 /HPF (0-3) A 05/09/21 17:08 Urine WBC Tntc /HPF (0-5) A 05/09/21 17:08 Ur Squamous Epith Cells Rare /HPF (NEGATIVE) 05/09/21 17:08 Urine Bacteria 2+ /HPF (NEGATIVE) 05/09/21 17:08 Ur Culture Indicated? Yes/culture set up 05/09/21 17:08 SARS CoV-2 RNA Rapid SATHISH Negative (NEGATIVE) 05/09/21 17:40 Blood Type O POSITIVE 05/09/21 16:10 Antibody Screen Negative 05/09/21 16:10 Crossmatch See Detail 05/09/21 16:10 Plan (1) Bronchiolitis: Status: Acute (2) Acute cystitis: Status: Acute (3) Symptomatic anemia: Status: Acute (4) Hypokalemia: Status: Acute (5) Salmonella bacteremia: Status: Acute
[2021-05-15] MEDS: XOPENEX 1.25 MG/3 ML NEBULE NEB SCH ×4 (09:05→20:00)
[2021-05-15] MEDS: PULMICORT NEB TX 0.5 MG NEB SCH ×2 (09:05→20:00)
[2021-05-15] MEDS: PROTONIX TAB 40 MG PO SCH (09:51)
[2021-05-15] MEDS: K-DUR TAB 20 MEQ PO PRN (09:51)
[2021-05-15] MEDS: COREG TAB 25 MG PO SCH ×2 (09:51→21:28)
[2021-05-15] MEDS: LEVAQUIN PREMIX IV 750 MG 750 MG/150 ML BAG IV SCH (10:00)
[2021-05-15] MEDS: PREDNISONE TAB 10 MG PO SCH (11:08)
--- NOTE | 2021-05-15 13:28 | PCM.PROG ---
Progress Note Progress Note for Day of Date of Exam: 05/15/21 Subjective Subjective: Pt is a 26 year old female past medical history of Sarcoidosis, CHF, and hypertension admitted for Bronchiolitis, Symptomatic anemia, Acute cystitis, and now Salmonella bacteremia. Blood culture 2/2 positive for Salmonella species on 05/11. Repeat blood cultures pending. Patient is immuno-compromised and is on chronic steroid treatment for sarcoidosis. This morning patient reports feeling better. She has PICC line. Her respiratory status is at baseline. Labs/imaging: Wbc 22.7, Hgb 8.4, Plt 247, Na 135, K 3.3, Creatinine 0.41, Glucose 154, Urine culture > 3 organisms, repeat urine culture NGTD. She has received a total of 2 units packed red blood cells for anemia, hemoglobin is stabilized. Pt started on IV Levaquin 750mg daily (05/12), continue treatment. Replete potassium per protocol. Continue with scheduled bronchodilators and home medications. Will continue to closely monitor and follow up labs in the morning. Past Medical Family Social History Past Med/Fam/Surg Hx: No changes since H&P Allergies: Allergies No Known Drug Allergies Allergy (Verified 11/18/17 13:59) Review of Systems ROS: No change since H&P Vital Signs and I&O's Vital Signs: Temperature 98.6 F Pulse Rate [Brachial] 124 Pulse Rate 120 Respiratory Rate 24 Blood Pressure [Left Arm] 97/55 Blood Pressure 100/70 O2 Sat by Pulse Oximetry 91 Intake and Output: Intake & Output 05/12/21 05/13/21 05/14/21 05/15/21 23:59 23:59 23:59 23:59 Intake Total 3895 / 3895 2407 / 2407 1771 / 1771 762 / 762 Output Total Balance 3895 / 3895 2407 / 2407 1770 / 1770 762 / 762 Physical Exam Oriented: Normal Eyes: Normal Ear: Normal Nose: Normal Throat: Normal Respiratory: Normal Cardiovascular: Normal : Normal Auscultation: Bowel Sounds: Normal Tenderness: Normal Skin: Normal Musculoskeletal: Normal Psychiatric: Normal Mood Description: Calm and Appropriate Affect: Normal Speech Pattern: Clear and Appropriate Laboratory and Diagnostics Result Diagrams: 05/15/21 05:29 05/15/21 05:29 Labs: 05/11/21 10:43 Blood Blood Culture - Final Salmonella Species 05/11/21 10:25 Blood Blood Culture - Final Salmonella Species 05/11/21 13:00 Urine,Clean Catch Urine Culture - Final 05/09/21 15:27 Blood Blood Culture - Final Salmonella Species 05/09/21 15:19 Blood Blood Culture - Final Salmonella Species 05/09/21 17:08 Urine,Clean Catch Urine Culture - Final Laboratory WBC 22.7 X10^3/uL (3.6-10.0) H 05/15/21 05:29 RBC 3.41 X10^6/uL (3.5-5.4) L 05/15/21 05:29 Hgb 8.4 g/dL (12.0-16.0) L 05/15/21 05:29 Hct 27.0 % (36.0-47.0) L 05/15/21 05:29 MCV 79.4 fL (80.0-100.0) L 05/15/21 05:29 MCH 24.6 pg (27.0-34.0) L 05/15/21 05:29 MCHC 30.9 g/dL (33.0-35.0) L 05/15/21 05:29 RDW 18.2 % (11.6-16.5) H 05/15/21 05:29 Plt Count 247 X10^3/uL (150.0-450.0) 05/15/21 05:29 Plt Count Comment Adequate (ADEQUATE) 05/15/21 05:29 MPV 8.9 fL (7.4-11.0) 05/15/21 05:29 Neut % (Auto) 86.9 % (42.0-75.0) H 05/15/21 05:29 Lymph % (Auto) 6.1 % (21.0-51.0) L 05/15/21 05:29 [place] % (Auto) 4.8 % (0.0-13.0) 05/15/21 05:29 Eos % (Auto) 1.8 % (0.9-2.9) 05/15/21 05:29 Baso % (Auto) 0.4 % (0.2-1.0) 05/15/21 05:29 Neut # (Auto) 19.7 x10^3/uL (2.2-4.8) H 05/15/21 05:29 Lymph # (Auto) 1.4 X10^3/uL (1.3-2.9) 05/15/21 05:29 [place] # (Auto) 1.1 x10^3/uL (0.3-0.8) H 05/15/21 05:29 Eos # (Auto) 0.4 x10^3/uL (0.0-0.2) H 05/15/21 05:29 Baso # (Auto) 0.1 X10^3/uL (0.0-0.1) 05/15/21 05:29 Absolute Nucleated RBC 0.1 /100WBC 05/15/21 05:29 Total Counted 100 05/15/21 05:29 Neutrophils % (Manual) 88 % (39-76) H 05/15/21 05:29 Band Neutrophils % 4 % (0-10) 05/15/21 05:29 Lymphocytes % (Manual) 5 % (13-43) L 05/15/21 05:29 Monocytes % (Manual) 3 % (4-9) L 05/15/21 05:29 Metamyelocytes % 2 05/13/21 06:00 Myelocytes % 1 05/12/21 05:43 Nucleated RBCs 2 05/11/21 06:12 Plt Morphology Comment Normal (NORMAL) 05/15/21 05:29 RBC Morphology Normal (NORMAL) 05/15/21 05:29 Hypochromasia Slight A 05/14/21 06:18 Anisocytosis Slight A 05/14/21 06:18 Microcytosis Slight A 05/14/21 06:18 Target Cells Present 05/13/21 06:00 Tear Drop Cells Present 05/09/21 15:27 PT 17.0 SECONDS (11.8-14.3) 05/09/21 15:27 INR Target Range - 05/09/21 15:27 INR 1.46 (0.8-1.3) H 05/09/21 15:27 APTT 25.1 SECONDS (22.9-36.5) 05/09/21 15:27 PTT Comment - 05/09/21 15:27 Sample Site Rr 05/09/21 15:15 ABG pH 7.530 (7.35-7.45) H 05/09/21 15:15 ABG pCO2 27.0 mmHg (35.0-45.0) L 05/09/21 15:15 ABG pO2 74.0 mmHg (80.0-100.0) L 05/09/21 15:15 ABG HCO3 22.6 mmol/L (22-26) 05/09/21 15:15 ABG O2 Saturation 96.0 % (90-100) 05/09/21 15:15 ABG Base Excess 0.9 mmol/L (-2.0-2.0) 05/09/21 15:15 Ti Test Pos 05/09/21 15:15 A-a Gradient 42.0 mmHg 05/09/21 15:15 FiO2 21.0 05/09/21 15:15 Blood Gas Comments Pt betty well cdn 05/09/21 15:15 Sodium 135 mmol/L (136-145) L 05/15/21 05:29 Corrected Sodium 136 mmol/L (136-145) 05/15/21 05:29 Potassium 3.3 mmol/L (3.5-5.1) L 05/15/21 05:29 Chloride 101 mmol/L (98-107) 05/15/21 05:29 Carbon Dioxide 27.0 mmol/L (21-32) 05/15/21 05:29 BUN 5 mg/dL (7-18) L 05/15/21 05:29 Creatinine 0.41 mg/dL (0.55-1.02) L 05/15/21 05:29 Est GFR (MDRD) Af Amer > 60 (>60) 05/15/21 05:29 Est GFR (MDRD) Non-Af > 60 (>60) 05/15/21 05:29 Glucose 154 mg/dL (65-99) H 05/15/21 05:29 POC Glucose (mg/dL) 172 mg/dL (65-99) H 05/15/21 12:05 Lactic Acid 2.0 mmol/L (0.4-2.0) 05/10/21 07:30 Calcium 8.2 mg/dL (8.5-10.1) L 05/15/21 05:29 Corrected Calcium 10.3 mg/dL (8.5-10.1) H 05/15/21 05:29 Magnesium 1.7 mg/dL (1.7-2.9) 05/15/21 05:29 Total Bilirubin 0.70 mg/dL (0.2-1.0) 05/15/21 05:29 AST 16 Units/L (15-37) 05/15/21 05:29 ALT 23 Units/L (12-78) 05/15/21 05:29 Alkaline Phosphatase 103 Units/L (46-116) 05/15/21 05:29 Creatine Kinase 13 Units/L (26-192) L 05/09/21 15:27 CK-MB (CK-2) < 1.0 ng/mL (0-4.0) 05/09/21 15:27 CK/CKMB % Calc 7.7 % (<4) 05/09/21 15:27 Troponin I High Sens 12.3 ng/L (4.0-60.0) 05/09/21 15:27 B-Natriuretic Peptide 221 pg/mL (0-79) H 05/09/21 15:27 Total Protein 5.7 g/dL (6.4-8.2) L 05/15/21 05:29 Albumin 1.4 g/dL (3.4-5.0) L 05/15/21 05:29 Globulin 4.3 g/dL (2.5-4.5) 05/15/21 05:29 Albumin/Globulin Ratio 0.3 Ratio (1.1-2.1) L 05/15/21 05:29 Specimen Type Clean catch urine 05/09/21 17:08 Urine Color [place] (YELLOW) 05/09/21 17:08 Urine Appearance Hazy (CLEAR) 05/09/21 17:08 Urine pH 6.0 (5.0 - 8.0) 05/09/21 17:08 Ur Specific [place] 1.020 (1.000-1.030) 05/09/21 17:08 Urine Protein 4+ (NEGATIVE) 05/09/21 17:08 Urine Glucose (UA) 3+ (NEGATIVE) 05/09/21 17:08 Urine Ketones 1+ (NEGATIVE) 05/09/21 17:08 Urine Occult Blood 5+ (NEGATIVE) 05/09/21 17:08 Urine Nitrite Positive (NEGATIVE) 05/09/21 17:08 Urine Bilirubin Negative (NEGATIVE) 05/09/21 17:08 Urine Urobilinogen 2+ (NORMAL) 05/09/21 17:08 Ur Leukocyte Esterase 3+ (NEGATIVE) 05/09/21 17:08 Urine RBC 10-20 /HPF (0-3) A 05/09/21 17:08 Urine WBC Tntc /HPF (0-5) A 05/09/21 17:08 Ur Squamous Epith Cells Rare /HPF (NEGATIVE) 05/09/21 17:08 Urine Bacteria 2+ /HPF (NEGATIVE) 05/09/21 17:08 Ur Culture Indicated? Yes/culture set up 05/09/21 17:08 SARS CoV-2 RNA Rapid SATHISH Negative (NEGATIVE) 05/09/21 17:40 Blood Type O POSITIVE 05/09/21 16:10 Antibody Screen Negative 05/09/21 16:10 Crossmatch See Detail 05/09/21 16:10 Plan (1) Bronchiolitis: Status: Acute (2) Acute cystitis: Status: Acute (3) Symptomatic anemia: Status: Acute (4) Hypokalemia: Status: Acute (5) Salmonella bacteremia: Status: Acute
[2021-05-15] MEDS: TYLENOL 325 MG TAB PO PRN (17:44)
[2021-05-15] MEDS: TUSSIONEX PENNKINETIC SUSP PO SCH (21:29)
[2021-05-15] MEDS: PEPCID TAB 20 MG PO SCH (21:29)
[2021-05-15] MEDS: MAGNESIUM SULFATE 1 GRAM/100 mL PREMIX 1 G/100 ML BAG IV PRN ×2 (21:32→22:43)
[2021-05-16] MEDS: TESSALON PERLES PO SCH ×3 (05:57→21:34)
[2021-05-16 07:49] LABS: ALANINE AMINOTRANSFERASE 24 Units/L (12-78); ALBUMIN 1.5 g/dL (3.4-5.0); ALKALINE PHOSPHATASE 100 Units/L (46-116); ASPARTATE AMINO TRANSFERASE 18 Units/L (15-37); BLOOD UREA NITROGEN 5 mg/dL (7-18); CALCIUM 8.3 mg/dL (8.5-10.1); CARBON DIOXIDE 26.4 mmol/L (21-32); CHLORIDE 101 mmol/L (98-107); COR CA(FOR HYPOALB) 10.3 mg/dL (8.5-10.1); COR NA(FOR HYPERGLY) 136 mmol/L (136-145); SODIUM 135 mmol/L (136-145); TOTAL PROTEIN 5.8 g/dL (6.4-8.2); eGFR NON BLACK RACES > 60 (>60)
[2021-05-16 08:32] LABS: BASOPHILS # (AUTO) 0.1 X10^3/uL (0.0-0.1); BASOPHILS % (AUTO) 0.4 % (0.2-1.0); EOSINOPHILS % (AUTO) 0.2 % (0.9-2.9); HEMATOCRIT 25.5 % (36.0-47.0); HEMOGLOBIN 7.9 g/dL (12.0-16.0); LYMPHOCYTES # (AUTO) 1.3 X10^3/uL (1.3-2.9); MEAN CORPUSCULAR HGB CONC 30.9 g/dL (33.0-35.0); MEAN CORPUSCULAR VOLUME 80.9 fL (80.0-100.0); MEAN PLATELET VOLUME 8.7 fL (7.4-11.0); MONOCYTES # (AUTO) 1.6 x10^3/uL (0.3-0.8); MONOCYTES % (AUTO) 7.2 % (0.0-13.0); NEUTROPHILS # (AUTO) 18.7 x10^3/uL (2.2-4.8); NEUTROPHILS % (AUTO) 86.2 % (42.0-75.0); RED BLOOD COUNT 3.15 X10^6/uL (3.5-5.4); WHITE BLOOD COUNT 21.7 X10^3/uL (3.6-10.0)
[2021-05-16] MEDS: COREG TAB 25 MG PO SCH ×2 (09:17→21:32)
[2021-05-16] MEDS: PREDNISONE TAB 10 MG PO SCH (09:17)
[2021-05-16] MEDS: LEVAQUIN PREMIX IV 750 MG 750 MG/150 ML BAG IV SCH (09:18)
[2021-05-16] MEDS: PROTONIX TAB 40 MG PO SCH (09:18)
[2021-05-16 09:21] LABS: BAND NEUTROPHILS % 7 % (0-10); METAMYELOCYTES % 3
[2021-05-16 09:22] LABS: ANISOCYTOSIS SLIGHT; HYPOCHROMASIA SLIGHT; PLATELET MORPHOLOGY COMMENT NORMAL (NORMAL)
--- NOTE | 2021-05-16 11:01 | RAD ---
HISTORYChest Discomfort HX CHF, SARCOIDOSIS SX: ORTHOSTUDYCHEST, 1 [id number] trachea is midline. There is stable mild cardiomegaly. There is again seen a large right parahilar mass, there is no evidence of pneumothorax or pleural effusions. There is an unchanged left-sided PICC line with the tip in the SVC. No pleural effusionsIMPRESSIONNo interval change. Large mass in the right hilum and the superior mediastinal region. No dominant alveolar radiopacity.Electronically signed by: Paige Wilson (May 16, 2021 11:00:46)
[2021-05-16] MEDS: NovoLIN R (or HumuLIN R) SC PRN ×3 (11:45→21:34)
[2021-05-16] MEDS: XOPENEX 1.25 MG/3 ML NEBULE NEB SCH ×4 (12:15→21:13)
[2021-05-16] MEDS: PULMICORT NEB TX 0.5 MG NEB SCH ×2 (12:39→21:13)
--- NOTE | 2021-05-16 16:18 | PCM.PROG ---
Progress Note Progress Note for Day of Date of Exam: 05/16/21 Subjective Subjective: Pt is a 26 year old female past medical history of Sarcoidosis, CHF, and hypertension admitted for Bronchiolitis, Symptomatic anemia, Acute cystitis, and now Salmonella bacteremia. Blood culture 2/2 positive for Salmonella species on 05/11. Repeat blood cultures pending. Patient is immuno-compromised and is on chronic steroid treatment for sarcoidosis. This morning patient reports feeling better. She has PICC line. Her respiratory status is at baseline. Urine culture > 3 organisms, repeat urine culture NGTD. She has received a total of 2 units packed red blood cells for anemia, hemoglobin is stabilized. Pt started on IV Levaquin 750mg daily (05/12), continue treatment. Replete potassium per protocol. Continue with scheduled bronchodilators and home medications. Will continue to closely monitor and follow up labs in the morning. This morning the patient does complain of some chest congestion. On auscultation I do not hear any rhonchi or rales. No new complaints other than t hat. Past Medical Family Social History Past Med/Fam/Surg Hx: No changes since H&P Allergies: Allergies No Known Drug Allergies Allergy (Verified 11/18/17 13:59) Review of Systems ROS: No change since H&P Vital Signs and I&O's Vital Signs: Temperature 98.8 F Pulse Rate [Right Brachial] 117 Pulse Rate [Brachial] 117 Pulse Rate 115 Respiratory Rate 18 Blood Pressure [Right Arm] 101/55 Blood Pressure [Left Arm] 99/61 Blood Pressure 100/70 O2 Sat by Pulse Oximetry 98 Intake and Output: Intake & Output 05/14/21 05/15/21 05/16/21 05/17/21 11:59 11:59 11:59 11:59 Intake Total 2615 / 2615 1853 / 1853 2455 / 2455 960 / 960 Output Total Balance 2615 / 2615 1852 / 1852 2455 / 2455 960 / 960 Physical Exam Oriented: Normal Eyes: Normal Ear: Normal Nose: Normal Throat: Normal Respiratory: Normal Cardiovascular: Normal : Normal Auscultation: Bowel Sounds: Normal Tenderness: Normal Skin: Normal Musculoskeletal: Normal Psychiatric: Normal Mood Description: Calm and Appropriate Affect: Normal Speech Pattern: Clear and Appropriate Laboratory and Diagnostics Result Diagrams: 05/16/21 06:23 05/16/21 06:23 Labs: 05/14/21 06:05 Blood Blood Culture - Preliminary 05/14/21 05:50 Blood Blood Culture - Preliminary 05/11/21 10:43 Blood Blood Culture - Final Salmonella Species 05/11/21 10:25 Blood Blood Culture - Final Salmonella Species 05/11/21 13:00 Urine,Clean Catch Urine Culture - Final 05/09/21 15:27 Blood Blood Culture - Final Salmonella Species 05/09/21 15:19 Blood Blood Culture - Final Salmonella Species 05/09/21 17:08 Urine,Clean Catch Urine Culture - Final Laboratory WBC 21.7 X10^3/uL (3.6-10.0) H 05/16/21 06:23 RBC 3.15 X10^6/uL (3.5-5.4) L 05/16/21 06:23 Hgb 7.9 g/dL (12.0-16.0) L 05/16/21 06:23 Hct 25.5 % (36.0-47.0) L 05/16/21 06:23 MCV 80.9 fL (80.0-100.0) 05/16/21 06:23 MCH 25.0 pg (27.0-34.0) L 05/16/21 06:23 MCHC 30.9 g/dL (33.0-35.0) L 05/16/21 06:23 RDW 19.0 % (11.6-16.5) H 05/16/21 06:23 Plt Count 299 X10^3/uL (150.0-450.0) 05/16/21 06:23 Plt Count Comment Adequate (ADEQUATE) 05/16/21 06:23 MPV 8.7 fL (7.4-11.0) 05/16/21 06:23 Neut % (Auto) 86.2 % (42.0-75.0) H 05/16/21 06:23 Lymph % (Auto) 6.0 % (21.0-51.0) L 05/16/21 06:23 [place] % (Auto) 7.2 % (0.0-13.0) 05/16/21 06:23 Eos % (Auto) 0.2 % (0.9-2.9) L 05/16/21 06:23 Baso % (Auto) 0.4 % (0.2-1.0) 05/16/21 06:23 Neut # (Auto) 18.7 x10^3/uL (2.2-4.8) H 05/16/21 06:23 Lymph # (Auto) 1.3 X10^3/uL (1.3-2.9) 05/16/21 06:23 [place] # (Auto) 1.6 x10^3/uL (0.3-0.8) H 05/16/21 06:23 Eos # (Auto) 0.0 x10^3/uL (0.0-0.2) 05/16/21 06:23 Baso # (Auto) 0.1 X10^3/uL (0.0-0.1) 05/16/21 06:23 Absolute Nucleated RBC 0.2 /100WBC 05/16/21 06:23 Total Counted 100 05/16/21 06:23 Neutrophils % (Manual) 74 % (39-76) 05/16/21 06:23 Band Neutrophils % 7 % (0-10) 05/16/21 06:23 Lymphocytes % (Manual) 11 % (13-43) L 05/16/21 06:23 Monocytes % (Manual) 4 % (4-9) 05/16/21 06:23 Eosinophils % (Manual) 1 % (0-6) 05/16/21 06:23 Metamyelocytes % 3 05/16/21 06:23 Myelocytes % 1 05/12/21 05:43 Nucleated RBCs 2 05/11/21 06:12 Plt Morphology Comment Normal (NORMAL) 05/16/21 06:23 RBC Morphology Abnormal (NORMAL) A 05/16/21 06:23 Hypochromasia Slight A 05/16/21 06:23 Anisocytosis Slight A 05/16/21 06:23 Microcytosis Slight A 05/14/21 06:18 Target Cells Present 05/13/21 06:00 Tear Drop Cells Present 05/09/21 15:27 PT 17.0 SECONDS (11.8-14.3) 05/09/21 15:27 INR Target Range - 05/09/21 15:27 INR 1.46 (0.8-1.3) H 05/09/21 15:27 APTT 25.1 SECONDS (22.9-36.5) 05/09/21 15:27 PTT Comment - 05/09/21 15:27 Sample Site Rr 05/09/21 15:15 ABG pH 7.530 (7.35-7.45) H 05/09/21 15:15 ABG pCO2 27.0 mmHg (35.0-45.0) L 05/09/21 15:15 ABG pO2 74.0 mmHg (80.0-100.0) L 05/09/21 15:15 ABG HCO3 22.6 mmol/L (22-26) 05/09/21 15:15 ABG O2 Saturation 96.0 % (90-100) 05/09/21 15:15 ABG Base Excess 0.9 mmol/L (-2.0-2.0) 05/09/21 15:15 Ti Test Pos 05/09/21 15:15 A-a Gradient 42.0 mmHg 05/09/21 15:15 FiO2 21.0 05/09/21 15:15 Blood Gas Comments Pt bet[facility] cdn 05/09/21 15:15 Sodium 135 mmol/L (136-145) L 05/16/21 06:23 Corrected Sodium 136 mmol/L (136-145) 05/16/21 06:23 Potassium 3.7 mmol/L (3.5-5.1) 05/16/21 06:23 Chloride 101 mmol/L (98-107) 05/16/21 06:23 Carbon Dioxide 26.4 mmol/L (21-32) 05/16/21 06:23 BUN 5 mg/dL (7-18) L 05/16/21 06:23 Creatinine 0.40 mg/dL (0.55-1.02) L 05/16/21 06:23 Est GFR (MDRD) Af Amer > 60 (>60) 05/16/21 06:23 Est GFR (MDRD) Non-Af > 60 (>60) 05/16/21 06:23 Glucose 134 mg/dL (65-99) H 05/16/21 06:23 POC Glucose (mg/dL) 210 mg/dL (65-99) H 05/16/21 16:04 Lactic Acid 2.0 mmol/L (0.4-2.0) 05/10/21 07:30 Calcium 8.3 mg/dL (8.5-10.1) L 05/16/21 06:23 Corrected Calcium 10.3 mg/dL (8.5-10.1) H 05/16/21 06:23 Magnesium 2.1 mg/dL (1.7-2.9) 05/16/21 06:23 Total Bilirubin 0.70 mg/dL (0.2-1.0) 05/16/21 06:23 AST 18 Units/L (15-37) 05/16/21 06:23 ALT 24 Units/L (12-78) 05/16/21 06:23 Alkaline Phosphatase 100 Units/L (46-116) 05/16/21 06:23 Creatine Kinase 13 Units/L (26-192) L 05/09/21 15:27 CK-MB (CK-2) < 1.0 ng/mL (0-4.0) 05/09/21 15:27 CK/CKMB % Calc 7.7 % (<4) 05/09/21 15:27 Troponin I High Sens 12.3 ng/L (4.0-60.0) 05/09/21 15:27 B-Natriuretic Peptide 221 pg/mL (0-79) H 05/09/21 15:27 Total Protein 5.8 g/dL (6.4-8.2) L 05/16/21 06:23 Albumin 1.5 g/dL (3.4-5.0) L 05/16/21 06:23 Globulin 4.3 g/dL (2.5-4.5) 05/16/21 06:23 Albumin/Globulin Ratio 0.3 Ratio (1.1-2.1) L 05/16/21 06:23 Specimen Type Clean catch urine 05/09/21 17:08 Urine Color Molly (YELLOW) 05/09/21 17:08 Urine Appearance Hazy (CLEAR) 05/09/21 17:08 Urine pH 6.0 (5.0 - 8.0) 05/09/21 17:08 Ur Specific [place] 1.020 (1.000-1.030) 05/09/21 17:08 Urine Protein 4+ (NEGATIVE) 05/09/21 17:08 Urine Glucose (UA) 3+ (NEGATIVE) 05/09/21 17:08 Urine Ketones 1+ (NEGATIVE) 05/09/21 17:08 Urine Occult Blood 5+ (NEGATIVE) 05/09/21 17:08 Urine Nitrite Positive (NEGATIVE) 05/09/21 17:08 Urine Bilirubin Negative (NEGATIVE) 05/09/21 17:08 Urine Urobilinogen 2+ (NORMAL) 05/09/21 17:08 Ur Leukocyte Esterase 3+ (NEGATIVE) 05/09/21 17:08 Urine RBC 10-20 /HPF (0-3) A 05/09/21 17:08 Urine WBC Tntc /HPF (0-5) A 05/09/21 17:08 Ur Squamous Epith Cells Rare /HPF (NEGATIVE) 05/09/21 17:08 Urine Bacteria 2+ /HPF (NEGATIVE) 05/09/21 17:08 Ur Culture Indicated? Yes/culture set up 05/09/21 17:08 SARS CoV-2 RNA Rapid SATHISH Negative (NEGATIVE) 05/09/21 17:40 Blood Type O POSITIVE 05/09/21 16:10 Antibody Screen Negative 05/09/21 16:10 Crossmatch See Detail 05/09/21 16:10 Plan (1) Bronchiolitis: Status: Acute Plan: Check portable chest x-ray this morning. (2) Acute cystitis: Status: Acute (3) Symptomatic anemia: Status: Acute (4) Hypokalemia: Status: Acute (5) Salmonella bacteremia: Status: Acute Plan: Continue IV Levaquin 750 mg daily.
[2021-05-16] MEDS: TUSSIONEX PENNKINETIC SUSP PO SCH (21:32)
[2021-05-16] MEDS: PEPCID TAB 20 MG PO SCH (21:32)
[2021-05-17] MEDS: TESSALON PERLES PO SCH ×3 (05:21→22:23)
[2021-05-17 05:22] LABS: BASOPHILS % (AUTO) 0.2 % (0.2-1.0); EOSINOPHILS % (AUTO) 0.2 % (0.9-2.9); HEMATOCRIT 23.4 % (36.0-47.0); HEMOGLOBIN 7.4 g/dL (12.0-16.0); LYMPHOCYTES # (AUTO) 1.4 X10^3/uL (1.3-2.9); LYMPHOCYTES % (AUTO) 7.6 % (21.0-51.0); MEAN CORPUSCULAR HGB CONC 31.5 g/dL (33.0-35.0); MEAN CORPUSCULAR VOLUME 79.3 fL (80.0-100.0); MEAN PLATELET VOLUME 8.2 fL (7.4-11.0); MONOCYTES # (AUTO) 2.2 x10^3/uL (0.3-0.8); MONOCYTES % (AUTO) 11.4 % (0.0-13.0); NEUTROPHILS # (AUTO) 15.3 x10^3/uL (2.2-4.8); NEUTROPHILS % (AUTO) 80.6 % (42.0-75.0); RED BLOOD COUNT 2.96 X10^6/uL (3.5-5.4)
[2021-05-17 06:09] LABS: ALANINE AMINOTRANSFERASE 28 Units/L (12-78); ALBUMIN 1.4 g/dL (3.4-5.0); ALKALINE PHOSPHATASE 100 Units/L (46-116); ASPARTATE AMINO TRANSFERASE 25 Units/L (15-37); BLOOD UREA NITROGEN 4 mg/dL (7-18); CALCIUM 8.3 mg/dL (8.5-10.1); CARBON DIOXIDE 26.8 mmol/L (21-32); CHLORIDE 103 mmol/L (98-107); COR CA(FOR HYPOALB) 10.4 mg/dL (8.5-10.1); CREATININE 0.37 mg/dL (0.55-1.02); SODIUM 136 mmol/L (136-145); TOTAL PROTEIN 5.7 g/dL (6.4-8.2); eGFR NON BLACK RACES > 60 (>60)
[2021-05-17] MEDS: XOPENEX 1.25 MG/3 ML NEBULE NEB SCH ×4 (09:10→20:25)
[2021-05-17] MEDS: PULMICORT NEB TX 0.5 MG NEB SCH ×2 (09:10→20:25)
[2021-05-17] MEDS: LEVAQUIN PREMIX IV 750 MG 750 MG/150 ML BAG IV SCH (09:36)
[2021-05-17] MEDS: COREG TAB 25 MG PO SCH ×2 (09:36→22:23)
[2021-05-17] MEDS: PREDNISONE TAB 10 MG PO SCH (09:36)
[2021-05-17] MEDS: PROTONIX TAB 40 MG PO SCH (09:36)
[2021-05-17 09:54] VITALS: BMI 26.4
[2021-05-17] MEDS: NS 1,000 ML IV 1,000 ML IV SCH ×3 (12:18→23:30)
--- NOTE | 2021-05-17 15:35 | PCM.PROG ---
Progress Note Progress Note for Day of Date of Exam: 05/17/21 Subjective Subjective: Pt is a 26 year old female past medical history of Sarcoidosis, CHF, and hypertension admitted for Bronchiolitis, Symptomatic anemia, Acute cystitis, and now Salmonella bacteremia. Blood culture 2/2 positive for Salmonella species on 05/11. Repeat blood cultures pending. Patient is immuno-compromised and is on chronic steroid treatment for sarcoidosis. This morning patient reports feeling better. She has PICC line. Her respiratory status is at baseline. Urine culture > 3 organisms, repeat urine culture NGTD. She has received a total of 2 units packed red blood cells for anemia, hemoglobin is stabilized. Pt started on IV Levaquin 750mg daily (05/12), continue treatment. Replete potassium per protocol. Continue with scheduled bronchodilators and home medications. Will continue to closely monitor and follow up labs in the morning. This morning the patient has no new complaints. She is resting comfortably she reports. The patient's hemoglobin has dropped to 7.4 and a white blood cell count has dropped to 19.0. I am going to order to order a anemia profile on her this morning. Past Medical Family Social History Past Med/Fam/Surg Hx: No changes since H&P Allergies: Allergies No Known Drug Allergies Allergy (Verified 11/18/17 13:59) Review of Systems ROS: No change since H&P Vital Signs and I&O's Vital Signs: Temperature 97.7 F Pulse Rate [Right Brachial] 117 Pulse Rate [Brachial] 112 Pulse Rate 121 Respiratory Rate 20 Blood Pressure [Right Arm] 108/59 Blood Pressure [Left Arm] 99/61 Blood Pressure 100/70 O2 Sat by Pulse Oximetry 97 Intake and Output: Intake & Output 05/15/21 05/16/21 05/17/21 05/18/21 11:59 11:59 11:59 11:59 Intake Total 1853 / 1853 2455 / 2455 2453 / 2453 Output Total Balance 1852 / 1852 2455 / 2455 2453 / 2453 Physical Exam Oriented: Normal Eyes: Normal Ear: Normal Nose: Normal Throat: Normal Respiratory: Normal Cardiovascular: Normal : Normal Auscultation: Bowel Sounds: Normal Tenderness: Normal Skin: Normal Musculoskeletal: Normal Psychiatric: Normal Mood Description: Calm and Appropriate Affect: Normal Speech Pattern: Clear and Appropriate Laboratory and Diagnostics Result Diagrams: 05/17/21 05:02 05/17/21 05:02 Labs: 05/14/21 05:50 Blood Blood Culture - Preliminary 05/14/21 06:05 Blood Blood Culture - Preliminary 05/11/21 10:43 Blood Blood Culture - Final Salmonella Species 05/11/21 10:25 Blood Blood Culture - Final Salmonella Species 05/11/21 13:00 Urine,Clean Catch Urine Culture - Final 05/09/21 15:27 Blood Blood Culture - Final Salmonella Species 05/09/21 15:19 Blood Blood Culture - Final Salmonella Species 05/09/21 17:08 Urine,Clean Catch Urine Culture - Final Laboratory WBC 19.0 X10^3/uL (3.6-10.0) H 05/17/21 05:02 RBC 2.96 X10^6/uL (3.5-5.4) L 05/17/21 05:02 Hgb 7.4 g/dL (12.0-16.0) L 05/17/21 05:02 Hct 23.4 % (36.0-47.0) L 05/17/21 05:02 MCV 79.3 fL (80.0-100.0) L 05/17/21 05:02 MCH 25.0 pg (27.0-34.0) L 05/17/21 05:02 MCHC 31.5 g/dL (33.0-35.0) L 05/17/21 05:02 RDW 19.0 % (11.6-16.5) H 05/17/21 05:02 Plt Count 326 X10^3/uL (150.0-450.0) 05/17/21 05:02 Plt Count Comment Adequate (ADEQUATE) 05/16/21 06:23 MPV 8.2 fL (7.4-11.0) 05/17/21 05:02 Neut % (Auto) 80.6 % (42.0-75.0) H 05/17/21 05:02 Lymph % (Auto) 7.6 % (21.0-51.0) L 05/17/21 05:02 [place] % (Auto) 11.4 % (0.0-13.0) 05/17/21 05:02 Eos % (Auto) 0.2 % (0.9-2.9) L 05/17/21 05:02 Baso % (Auto) 0.2 % (0.2-1.0) 05/17/21 05:02 Neut # (Auto) 15.3 x10^3/uL (2.2-4.8) H 05/17/21 05:02 Lymph # (Auto) 1.4 X10^3/uL (1.3-2.9) 05/17/21 05:02 [place] # (Auto) 2.2 x10^3/uL (0.3-0.8) H 05/17/21 05:02 Eos # (Auto) 0.0 x10^3/uL (0.0-0.2) 05/17/21 05:02 Baso # (Auto) 0.0 X10^3/uL (0.0-0.1) 05/17/21 05:02 Absolute Nucleated RBC 0.1 /100WBC 05/17/21 05:02 Total Counted 100 05/16/21 06:23 Neutrophils % (Manual) 74 % (39-76) 05/16/21 06:23 Band Neutrophils % 7 % (0-10) 05/16/21 06:23 Lymphocytes % (Manual) 11 % (13-43) L 05/16/21 06:23 Monocytes % (Manual) 4 % (4-9) 05/16/21 06:23 Eosinophils % (Manual) 1 % (0-6) 05/16/21 06:23 Metamyelocytes % 3 05/16/21 06:23 Myelocytes % 1 05/12/21 05:43 Nucleated RBCs 2 05/11/21 06:12 Plt Morphology Comment Normal (NORMAL) 05/16/21 06:23 RBC Morphology Abnormal (NORMAL) A 05/16/21 06:23 Hypochromasia Slight A 05/16/21 06:23 Anisocytosis Slight A 05/16/21 06:23 Microcytosis Slight A 05/14/21 06:18 Target Cells Present 05/13/21 06:00 Tear Drop Cells Present 05/09/21 15:27 PT 17.0 SECONDS (11.8-14.3) 05/09/21 15:27 INR Target Range - 05/09/21 15:27 INR 1.46 (0.8-1.3) H 05/09/21 15:27 APTT 25.1 SECONDS (22.9-36.5) 05/09/21 15:27 PTT Comment - 05/09/21 15:27 Sample Site Rr 05/09/21 15:15 ABG pH 7.530 (7.35-7.45) H 05/09/21 15:15 ABG pCO2 27.0 mmHg (35.0-45.0) L 05/09/21 15:15 ABG pO2 74.0 mmHg (80.0-100.0) L 05/09/21 15:15 ABG HCO3 22.6 mmol/L (22-26) 05/09/21 15:15 ABG O2 Saturation 96.0 % (90-100) 05/09/21 15:15 ABG Base Excess 0.9 mmol/L (-2.0-2.0) 05/09/21 15:15 Ti Test Pos 05/09/21 15:15 A-a Gradient 42.0 mmHg 05/09/21 15:15 FiO2 21.0 05/09/21 15:15 Blood Gas Comments Pt betty well cdn 05/09/21 15:15 Sodium 136 mmol/L (136-145) 05/17/21 05:02 Corrected Sodium TNP 05/17/21 05:02 Potassium 3.6 mmol/L (3.5-5.1) 05/17/21 05:02 Chloride 103 mmol/L (98-107) 05/17/21 05:02 Carbon Dioxide 26.8 mmol/L (21-32) 05/17/21 05:02 BUN 4 mg/dL (7-18) L 05/17/21 05:02 Creatinine 0.37 mg/dL (0.55-1.02) L 05/17/21 05:02 Est GFR (MDRD) Af Amer > 60 (>60) 05/17/21 05:02 Est GFR (MDRD) Non-Af > 60 (>60) 05/17/21 05:02 Glucose 110 mg/dL (65-99) H 05/17/21 05:02 POC Glucose (mg/dL) 134 mg/dL (65-99) H 05/17/21 11:21 Lactic Acid 2.0 mmol/L (0.4-2.0) 05/10/21 07:30 Calcium 8.3 mg/dL (8.5-10.1) L 05/17/21 05:02 Corrected Calcium 10.4 mg/dL (8.5-10.1) H 05/17/21 05:02 Magnesium 1.8 mg/dL (1.7-2.9) 05/17/21 05:02 Total Bilirubin 0.50 mg/dL (0.2-1.0) 05/17/21 05:02 AST 25 Units/L (15-37) 05/17/21 05:02 ALT 28 Units/L (12-78) 05/17/21 05:02 Alkaline Phosphatase 100 Units/L (46-116) 05/17/21 05:02 Creatine Kinase 13 Units/L (26-192) L 05/09/21 15:27 CK-MB (CK-2) < 1.0 ng/mL (0-4.0) 05/09/21 15:27 CK/CKMB % Calc 7.7 % (<4) 05/09/21 15:27 Troponin I High Sens 12.3 ng/L (4.0-60.0) 05/09/21 15:27 B-Natriuretic Peptide 221 pg/mL (0-79) H 05/09/21 15:27 Total Protein 5.7 g/dL (6.4-8.2) L 05/17/21 05:02 Albumin 1.4 g/dL (3.4-5.0) L 05/17/21 05:02 Globulin 4.3 g/dL (2.5-4.5) 05/17/21 05:02 Albumin/Globulin Ratio 0.3 Ratio (1.1-2.1) L 05/17/21 05:02 Specimen Type Clean catch urine 05/09/21 17:08 Urine Color Molly (YELLOW) 05/09/21 17:08 Urine Appearance Hazy (CLEAR) 05/09/21 17:08 Urine pH 6.0 (5.0 - 8.0) 05/09/21 17:08 Ur Specific [place] 1.020 (1.000-1.030) 05/09/21 17:08 Urine Protein 4+ (NEGATIVE) 05/09/21 17:08 Urine Glucose (UA) 3+ (NEGATIVE) 05/09/21 17:08 Urine Ketones 1+ (NEGATIVE) 05/09/21 17:08 Urine Occult Blood 5+ (NEGATIVE) 05/09/21 17:08 Urine Nitrite Positive (NEGATIVE) 05/09/21 17:08 Urine Bilirubin Negative (NEGATIVE) 05/09/21 17:08 Urine Urobilinogen 2+ (NORMAL) 05/09/21 17:08 Ur Leukocyte Esterase 3+ (NEGATIVE) 05/09/21 17:08 Urine RBC 10-20 /HPF (0-3) A 05/09/21 17:08 Urine WBC Tntc /HPF (0-5) A 05/09/21 17:08 Ur Squamous Epith Cells Rare /HPF (NEGATIVE) 05/09/21 17:08 Urine Bacteria 2+ /HPF (NEGATIVE) 05/09/21 17:08 Ur Culture Indicated? Yes/culture set up 05/09/21 17:08 SARS CoV-2 RNA Rapid SATHISH Negative (NEGATIVE) 05/09/21 17:40 Blood Type O POSITIVE 05/09/21 16:10 Antibody Screen Negative 05/09/21 16:10 Crossmatch See Detail 05/09/21 16:10 Plan (1) Bronchiolitis: Status: Acute Plan: Check portable chest x-ray this morning. (2) Acute cystitis: Status: Acute (3) Symptomatic anemia: Status: Acute (4) Hypokalemia: Status: Acute (5) Salmonella bacteremia: Status: Acute Plan: Continue IV Levaquin 750 mg daily. (6) Anemia: Status: Acute Plan: I will check an anemia profile. I will transfuse blood if her hemoglobin drops below 7. I will recheck H&H at 2000 this evening.
[2021-05-17] MEDS: NovoLIN R (or HumuLIN R) SC PRN ×2 (17:00→22:24)
[2021-05-17 20:28] LABS: HEMOGLOBIN 7.6 g/dL (12.0-16.0)
[2021-05-17 20:29] LABS: HEMATOCRIT 24.9 % (36.0-47.0)
[2021-05-17] MEDS: TUSSIONEX PENNKINETIC SUSP PO SCH (22:24)
[2021-05-17] MEDS: PEPCID TAB 20 MG PO SCH (22:24)
[2021-05-18 06:27] LABS: BASOPHILS % (AUTO) 0.3 % (0.2-1.0); EOSINOPHILS % (AUTO) 0.2 % (0.9-2.9); HEMATOCRIT 23.3 % (36.0-47.0); HEMOGLOBIN 7.3 g/dL (12.0-16.0); LYMPHOCYTES # (AUTO) 1.5 X10^3/uL (1.3-2.9); LYMPHOCYTES % (AUTO) 7.5 % (21.0-51.0); MEAN CORPUSCULAR HGB CONC 31.3 g/dL (33.0-35.0); MEAN CORPUSCULAR VOLUME 79.9 fL (80.0-100.0); MEAN PLATELET VOLUME 8.1 fL (7.4-11.0); MONOCYTES # (AUTO) 2.6 x10^3/uL (0.3-0.8); MONOCYTES % (AUTO) 13.4 % (0.0-13.0); NEUTROPHILS # (AUTO) 15.5 x10^3/uL (2.2-4.8); NEUTROPHILS % (AUTO) 78.6 % (42.0-75.0); RED BLOOD COUNT 2.91 X10^6/uL (3.5-5.4); RED CELL DISTRIBUTION WIDTH 18.8 % (11.6-16.5); WHITE BLOOD COUNT 19.7 X10^3/uL (3.6-10.0)
[2021-05-18 06:38] LABS: ALANINE AMINOTRANSFERASE 32 Units/L (12-78); ALBUMIN 1.5 g/dL (3.4-5.0); ALKALINE PHOSPHATASE 106 Units/L (46-116); ASPARTATE AMINO TRANSFERASE 32 Units/L (15-37); BLOOD UREA NITROGEN 2 mg/dL (7-18); CALCIUM 8.2 mg/dL (8.5-10.1); CARBON DIOXIDE 27.6 mmol/L (21-32); CHLORIDE 100 mmol/L (98-107); COR CA(FOR HYPOALB) 10.2 mg/dL (8.5-10.1); CREATININE 0.34 mg/dL (0.55-1.02); SODIUM 135 mmol/L (136-145); TOTAL PROTEIN 5.8 g/dL (6.4-8.2); eGFR NON BLACK RACES > 60 (>60)
[2021-05-18] MEDS: NS 1,000 ML IV 1,000 ML IV SCH ×3 (07:29→17:17)
[2021-05-18] MEDS: TESSALON PERLES PO SCH ×3 (08:38→22:16)
[2021-05-18] MEDS: K-DUR TAB 20 MEQ PO PRN ×2 (08:39→12:30)
[2021-05-18] MEDS: LEVAQUIN PREMIX IV 750 MG 750 MG/150 ML BAG IV SCH (08:39)
[2021-05-18] MEDS: COREG TAB 25 MG PO SCH ×2 (08:39→20:35)
[2021-05-18] MEDS: PREDNISONE TAB 10 MG PO SCH (08:40)
[2021-05-18] MEDS: PROTONIX TAB 40 MG PO SCH (08:40)
[2021-05-18] MEDS: PULMICORT NEB TX 0.5 MG NEB SCH ×2 (08:50→20:03)
[2021-05-18] MEDS: XOPENEX 1.25 MG/3 ML NEBULE NEB SCH ×4 (08:51→20:03)
[2021-05-18] MEDS: NovoLIN R (or HumuLIN R) SC PRN ×2 (11:39→16:06)
[2021-05-18] MEDS: PEPCID TAB 20 MG PO SCH (20:35)
[2021-05-18] MEDS: TUSSIONEX PENNKINETIC SUSP PO SCH (20:35)
[2021-05-19] MEDS: NS 1,000 ML IV 1,000 ML IV SCH ×2 (05:48→13:35)
[2021-05-19] MEDS: TESSALON PERLES PO SCH ×3 (05:49→21:30)
[2021-05-19 06:08] LABS: BASOPHILS # (AUTO) 0.1 X10^3/uL (0.0-0.1); BASOPHILS % (AUTO) 0.6 % (0.2-1.0); EOSINOPHILS % (AUTO) 0.1 % (0.9-2.9); HEMATOCRIT 23.8 % (36.0-47.0); HEMOGLOBIN 7.5 g/dL (12.0-16.0); LYMPHOCYTES # (AUTO) 1.5 X10^3/uL (1.3-2.9); LYMPHOCYTES % (AUTO) 7.8 % (21.0-51.0); MEAN CORPUSCULAR HEMOGLOBIN 24.9 pg (27.0-34.0); MEAN CORPUSCULAR HGB CONC 31.3 g/dL (33.0-35.0); MEAN CORPUSCULAR VOLUME 79.5 fL (80.0-100.0); MEAN PLATELET VOLUME 7.8 fL (7.4-11.0); MONOCYTES # (AUTO) 2.7 x10^3/uL (0.3-0.8); MONOCYTES % (AUTO) 14.2 % (0.0-13.0); NEUTROPHILS # (AUTO) 14.6 x10^3/uL (2.2-4.8); NEUTROPHILS % (AUTO) 77.3 % (42.0-75.0); RED BLOOD COUNT 2.99 X10^6/uL (3.5-5.4); RED CELL DISTRIBUTION WIDTH 19.4 % (11.6-16.5); WHITE BLOOD COUNT 18.9 X10^3/uL (3.6-10.0)
[2021-05-19 06:16] LABS: ALANINE AMINOTRANSFERASE 33 Units/L (12-78); ALBUMIN 1.6 g/dL (3.4-5.0); ALKALINE PHOSPHATASE 115 Units/L (46-116); ASPARTATE AMINO TRANSFERASE 31 Units/L (15-37); BLOOD UREA NITROGEN 5 mg/dL (7-18); CALCIUM 8.5 mg/dL (8.5-10.1); CARBON DIOXIDE 27.2 mmol/L (21-32); CHLORIDE 99 mmol/L (98-107); COR CA(FOR HYPOALB) 10.4 mg/dL (8.5-10.1); COR NA(FOR HYPERGLY) 133 mmol/L (136-145); CREATININE 0.39 mg/dL (0.55-1.02); SODIUM 133 mmol/L (136-145); TOTAL PROTEIN 6.2 g/dL (6.4-8.2); eGFR NON BLACK RACES > 60 (>60)
--- NOTE | 2021-05-19 08:09 | PCM.PROG ---
Progress Note Progress Note for Day of Date of Exam: 05/18/21 Subjective Subjective: Pt is a 26 year old female past medical history of Sarcoidosis, CHF, and hypertension admitted for Bronchiolitis, Symptomatic anemia, Acute cystitis, and now Salmonella bacteremia. Blood culture 2/2 positive for Salmonella species on 05/11/21 and 1/2 on 05/14/21. Will repeat blood culture today. Patient is immuno-compromised and is on chronic steroid treatment for sarcoidosis. This morning patient reports feeling better. She has PICC line. Her respiratory status is at baseline. She has received a total of 2 units packed red blood cells for anemia, hemoglobin is stabilized. Anemia panel revealing occult stool negative, folic and iron deficiency. Will start on supplementation. Pt started on IV Levaquin 750mg daily (05/12), continue treatment. Replete potassium per protocol. Continue with scheduled bronchodilators and home medications. Will continue to closely monitor and follow up labs in the morning. Past Medical Family Social History Past Med/Fam/Surg Hx: No changes since H&P Allergies: Allergies No Known Drug Allergies Allergy (Verified 11/18/17 13:59) Review of Systems ROS: No change since H&P Vital Signs and I&O's Vital Signs: Temperature 98.6 F Pulse Rate [Right Brachial] 124 Pulse Rate [Brachial] 112 Pulse Rate 119 Respiratory Rate 20 Blood Pressure [Right Arm] 95/51 Blood Pressure [Left Arm] 99/61 Blood Pressure 100/70 O2 Sat by Pulse Oximetry 96 Intake and Output: Intake & Output 05/16/21 05/17/21 05/18/21 05/19/21 23:59 23:59 23:59 23:59 Intake Total 3038 / 3038 1670 / 1670 1969 587 / 587 Balance 3038 / 3038 1670 / 1670 1969 587 / 587 Physical Exam Oriented: Normal Eyes: Normal Ear: Normal Nose: Normal Throat: Normal Respiratory: Normal Cardiovascular: Normal : Normal Auscultation: Bowel Sounds: Normal Tenderness: Normal Skin: Normal Musculoskeletal: Normal Psychiatric: Normal Mood Description: Calm and Appropriate Affect: Normal Speech Pattern: Clear and Appropriate Laboratory and Diagnostics Result Diagrams: 05/19/21 05:46 05/19/21 05:46 Labs: 05/14/21 06:05 Blood Blood Culture - Preliminary 05/14/21 05:50 Blood Blood Culture - Final Salmonella Species 05/11/21 10:43 Blood Blood Culture - Final Salmonella Species 05/11/21 10:25 Blood Blood Culture - Final Salmonella Species 05/11/21 13:00 Urine,Clean Catch Urine Culture - Final 05/09/21 15:27 Blood Blood Culture - Final Salmonella Species 05/09/21 15:19 Blood Blood Culture - Final Salmonella Species 05/09/21 17:08 Urine,Clean Catch Urine Culture - Final Laboratory WBC 18.9 X10^3/uL (3.6-10.0) H 05/19/21 05:46 RBC 2.99 X10^6/uL (3.5-5.4) L 05/19/21 05:46 Hgb 7.5 g/dL (12.0-16.0) L 05/19/21 05:46 Hct 23.8 % (36.0-47.0) L 05/19/21 05:46 MCV 79.5 fL (80.0-100.0) L 05/19/21 05:46 MCH 24.9 pg (27.0-34.0) L 05/19/21 05:46 MCHC 31.3 g/dL (33.0-35.0) L 05/19/21 05:46 RDW 19.4 % (11.6-16.5) H 05/19/21 05:46 Plt Count 431 X10^3/uL (150.0-450.0) 05/19/21 05:46 Plt Count Comment Adequate (ADEQUATE) 05/16/21 06:23 MPV 7.8 fL (7.4-11.0) 05/19/21 05:46 Neut % (Auto) 77.3 % (42.0-75.0) H 05/19/21 05:46 Lymph % (Auto) 7.8 % (21.0-51.0) L 05/19/21 05:46 [place] % (Auto) 14.2 % (0.0-13.0) H 05/19/21 05:46 Eos % (Auto) 0.1 % (0.9-2.9) L 05/19/21 05:46 Baso % (Auto) 0.6 % (0.2-1.0) 05/19/21 05:46 Neut # (Auto) 14.6 x10^3/uL (2.2-4.8) H 05/19/21 05:46 Lymph # (Auto) 1.5 X10^3/uL (1.3-2.9) 05/19/21 05:46 [place] # (Auto) 2.7 x10^3/uL (0.3-0.8) H 05/19/21 05:46 Eos # (Auto) 0.0 x10^3/uL (0.0-0.2) 05/19/21 05:46 Baso # (Auto) 0.1 X10^3/uL (0.0-0.1) 05/19/21 05:46 Absolute Nucleated RBC 0.1 /100WBC 05/19/21 05:46 Total Counted 100 05/16/21 06:23 Neutrophils % (Manual) 74 % (39-76) 05/16/21 06:23 Band Neutrophils % 7 % (0-10) 05/16/21 06:23 Lymphocytes % (Manual) 11 % (13-43) L 05/16/21 06:23 Monocytes % (Manual) 4 % (4-9) 05/16/21 06:23 Eosinophils % (Manual) 1 % (0-6) 05/16/21 06:23 Metamyelocytes % 3 05/16/21 06:23 Myelocytes % 1 05/12/21 05:43 Nucleated RBCs 2 05/11/21 06:12 Plt Morphology Comment Normal (NORMAL) 05/16/21 06:23 RBC Morphology Abnormal (NORMAL) A 05/16/21 06:23 Hypochromasia Slight A 05/16/21 06:23 Anisocytosis Slight A 05/16/21 06:23 Microcytosis Slight A 05/14/21 06:18 Target Cells Present 05/13/21 06:00 Tear Drop Cells Present 05/09/21 15:27 PT 17.0 SECONDS (11.8-14.3) 05/09/21 15:27 INR Target Range - 05/09/21 15:27 INR 1.46 (0.8-1.3) H 05/09/21 15:27 APTT 25.1 SECONDS (22.9-36.5) 05/09/21 15:27 PTT Comment - 05/09/21 15:27 Sample Site Rr 05/09/21 15:15 ABG pH 7.530 (7.35-7.45) H 05/09/21 15:15 ABG pCO2 27.0 mmHg (35.0-45.0) L 05/09/21 15:15 ABG pO2 74.0 mmHg (80.0-100.0) L 05/09/21 15:15 ABG HCO3 22.6 mmol/L (22-26) 05/09/21 15:15 ABG O2 Saturation 96.0 % (90-100) 05/09/21 15:15 ABG Base Excess 0.9 mmol/L (-2.0-2.0) 05/09/21 15:15 Ti Test Pos 05/09/21 15:15 A-a Gradient 42.0 mmHg 05/09/21 15:15 FiO2 21.0 05/09/21 15:15 Blood Gas Comments Pt betty well cdn 05/09/21 15:15 Sodium 133 mmol/L (136-145) L 05/19/21 05:46 Corrected Sodium 133 mmol/L (136-145) L 05/19/21 05:46 Potassium 3.6 mmol/L (3.5-5.1) 05/19/21 05:46 Chloride 99 mmol/L (98-107) 05/19/21 05:46 Carbon Dioxide 27.2 mmol/L (21-32) 05/19/21 05:46 BUN 5 mg/dL (7-18) L 05/19/21 05:46 Creatinine 0.39 mg/dL (0.55-1.02) L 05/19/21 05:46 Est GFR (MDRD) Af Amer > 60 (>60) 05/19/21 05:46 Est GFR (MDRD) Non-Af > 60 (>60) 05/19/21 05:46 Glucose 113 mg/dL (65-99) H 05/19/21 05:46 POC Glucose (mg/dL) 118 mg/dL (65-99) H 05/19/21 05:30 Lactic Acid 2.0 mmol/L (0.4-2.0) 05/10/21 07:30 Calcium 8.5 mg/dL (8.5-10.1) 05/19/21 05:46 Corrected Calcium 10.4 mg/dL (8.5-10.1) H 05/19/21 05:46 Magnesium 1.8 mg/dL (1.7-2.9) 05/17/21 05:02 Iron 22 ug/dL (50-175) L 05/17/21 05:20 Transferrin 150 mg/dL (202-364) L 05/17/21 05:20 Ferritin 1929 ng/mL (8-252) H 05/17/21 05:20 Total Bilirubin 1.00 mg/dL (0.2-1.0) 05/19/21 05:46 AST 31 Units/L (15-37) 05/19/21 05:46 ALT 33 Units/L (12-78) 05/19/21 05:46 Alkaline Phosphatase 115 Units/L (46-116) 05/19/21 05:46 Creatine Kinase 13 Units/L (26-192) L 05/09/21 15:27 CK-MB (CK-2) < 1.0 ng/mL (0-4.0) 05/09/21 15:27 CK/CKMB % Calc 7.7 % (<4) 05/09/21 15:27 Troponin I High Sens 12.3 ng/L (4.0-60.0) 05/09/21 15:27 B-Natriuretic Peptide 221 pg/mL (0-79) H 05/09/21 15:27 Total Protein 6.2 g/dL (6.4-8.2) L 05/19/21 05:46 Albumin 1.6 g/dL (3.4-5.0) L 05/19/21 05:46 Globulin 4.6 g/dL (2.5-4.5) H 05/19/21 05:46 Albumin/Globulin Ratio 0.3 Ratio (1.1-2.1) L 05/19/21 05:46 Vitamin B12 1154 pg/mL (193-986) H 05/17/21 05:20 Folate 4.8 ng/mL (>8.6) L 05/17/21 05:20 Specimen Type Clean catch urine 05/09/21 17:08 Urine Color Molly (YELLOW) 05/09/21 17:08 Urine Appearance Hazy (CLEAR) 05/09/21 17:08 Urine pH 6.0 (5.0 - 8.0) 05/09/21 17:08 Ur Specific [place] 1.020 (1.000-1.030) 05/09/21 17:08 Urine Protein 4+ (NEGATIVE) 05/09/21 17:08 Urine Glucose (UA) 3+ (NEGATIVE) 05/09/21 17:08 Urine Ketones 1+ (NEGATIVE) 05/09/21 17:08 Urine Occult Blood 5+ (NEGATIVE) 05/09/21 17:08 Urine Nitrite Positive (NEGATIVE) 05/09/21 17:08 Urine Bilirubin Negative (NEGATIVE) 05/09/21 17:08 Urine Urobilinogen 2+ (NORMAL) 05/09/21 17:08 Ur Leukocyte Esterase 3+ (NEGATIVE) 05/09/21 17:08 Urine RBC 10-20 /HPF (0-3) A 05/09/21 17:08 Urine WBC Tntc /HPF (0-5) A 05/09/21 17:08 Ur Squamous Epith Cells Rare /HPF (NEGATIVE) 05/09/21 17:08 Urine Bacteria 2+ /HPF (NEGATIVE) 05/09/21 17:08 Ur Culture Indicated? Yes/culture set up 05/09/21 17:08 Stool Description 150g loose ibrahim 05/17/21 18:10 Stl Occult Blood (IFOB) Negative (NEGATIVE) 05/17/21 18:10 SARS CoV-2 RNA Rapid SATHISH Negative (NEGATIVE) 05/09/21 17:40 Blood Type O POSITIVE 05/09/21 16:10 Antibody Screen Negative 05/09/21 16:10 Crossmatch See Detail 05/09/21 16:10 Plan (1) Bronchiolitis: Status: Acute Plan: Check portable chest x-ray this morning. (2) Acute cystitis: Status: Acute (3) Symptomatic anemia: Status: Acute (4) Hypokalemia: Status: Acute (5) Salmonella bacteremia: Status: Acute Plan: Continue IV Levaquin 750 mg daily. (6) Anemia: Status: Acute Plan: I will check an anemia profile. I will transfuse blood if her hemoglobin drops below 7. I will recheck H&H at 2000 this evening.
--- NOTE | 2021-05-19 08:14 | PCM.PROG ---
Progress Note Progress Note for Day of Date of Exam: 05/19/21 Subjective Subjective: Pt is a 26 year old female past medical history of Sarcoidosis, CHF, and hypertension admitted for Bronchiolitis, Symptomatic anemia, Acute cystitis, and now Salmonella bacteremia. Blood culture 2/2 positive for Salmonella species on 05/11/21 and 1/2 on 05/14/21. Repeat blood culture on 05/18/21 pending. Patient is immuno-compromised and is on chronic steroid treatment for sarcoidosis. This morning patient reports feeling better. She has PICC line. Her respiratory status is at baseline. She has received a total of 2 units packed red blood cells for anemia, hemoglobin is stabilized. Labs: Wbc 18.9, Hgb 7.5, Plt 431, Na 133, K 3.6, Creatinine 0.39, Glucose 113. Pt started on IV Levaquin 750mg daily (05/12). Will continue with current treatment plan. Continue with scheduled bronchodilators and home medications. Closely monitor and follow up labs in the morning. Past Medical Family Social History Past Med/Fam/Surg Hx: No changes since H&P Allergies: Allergies No Known Drug Allergies Allergy (Verified 11/18/17 13:59) Review of Systems ROS: No change since H&P Vital Signs and I&O's Vital Signs: Temperature 98.6 F Pulse Rate [Right Brachial] 124 Pulse Rate [Brachial] 112 Pulse Rate 119 Respiratory Rate 20 Blood Pressure [Right Arm] 95/51 Blood Pressure [Left Arm] 99/61 Blood Pressure 100/70 O2 Sat by Pulse Oximetry 96 Intake and Output: Intake & Output 05/16/21 05/17/21 05/18/21 05/19/21 23:59 23:59 23:59 23:59 Intake Total 3038 / 3038 1670 / 1670 1969 587 / 587 Balance 3038 / 3038 1669 / 0 1969 587 / 587 Physical Exam Oriented: Normal Eyes: Normal Ear: Normal Nose: Normal Throat: Normal Respiratory: Normal Cardiovascular: Normal : Normal Auscultation: Bowel Sounds: Normal Tenderness: Normal Skin: Normal Musculoskeletal: Normal Psychiatric: Normal Mood Description: Calm and Appropriate Affect: Normal Speech Pattern: Clear and Appropriate Laboratory and Diagnostics Result Diagrams: 05/19/21 05:46 05/19/21 05:46 Labs: 05/14/21 06:05 Blood Blood Culture - Preliminary 05/14/21 05:50 Blood Blood Culture - Final Salmonella Species 05/11/21 10:43 Blood Blood Culture - Final Salmonella Species 05/11/21 10:25 Blood Blood Culture - Final Salmonella Species 05/11/21 13:00 Urine,Clean Catch Urine Culture - Final 05/09/21 15:27 Blood Blood Culture - Final Salmonella Species 05/09/21 15:19 Blood Blood Culture - Final Salmonella Species 05/09/21 17:08 Urine,Clean Catch Urine Culture - Final Laboratory WBC 18.9 X10^3/uL (3.6-10.0) H 05/19/21 05:46 RBC 2.99 X10^6/uL (3.5-5.4) L 05/19/21 05:46 Hgb 7.5 g/dL (12.0-16.0) L 05/19/21 05:46 Hct 23.8 % (36.0-47.0) L 05/19/21 05:46 MCV 79.5 fL (80.0-100.0) L 05/19/21 05:46 MCH 24.9 pg (27.0-34.0) L 05/19/21 05:46 MCHC 31.3 g/dL (33.0-35.0) L 05/19/21 05:46 RDW 19.4 % (11.6-16.5) H 05/19/21 05:46 Plt Count 431 X10^3/uL (150.0-450.0) 05/19/21 05:46 Plt Count Comment Adequate (ADEQUATE) 05/16/21 06:23 MPV 7.8 fL (7.4-11.0) 05/19/21 05:46 Neut % (Auto) 77.3 % (42.0-75.0) H 05/19/21 05:46 Lymph % (Auto) 7.8 % (21.0-51.0) L 05/19/21 05:46 [place] % (Auto) 14.2 % (0.0-13.0) H 05/19/21 05:46 Eos % (Auto) 0.1 % (0.9-2.9) L 05/19/21 05:46 Baso % (Auto) 0.6 % (0.2-1.0) 03/22/22 05:46 Neut # (Auto) 14.6 x10^3/uL (2.2-4.8) H 05/19/21 05:46 Lymph # (Auto) 1.5 X10^3/uL (1.3-2.9) 05/19/21 05:46 [place] # (Auto) 2.7 x10^3/uL (0.3-0.8) H 05/19/21 05:46 Eos # (Auto) 0.0 x10^3/uL (0.0-0.2) 05/19/21 05:46 Baso # (Auto) 0.1 X10^3/uL (0.0-0.1) 05/19/21 05:46 Absolute Nucleated RBC 0.1 /100WBC 05/19/21 05:46 Total Counted 100 05/16/21 06:23 Neutrophils % (Manual) 74 % (39-76) 05/16/21 06:23 Band Neutrophils % 7 % (0-10) 05/16/21 06:23 Lymphocytes % (Manual) 11 % (13-43) L 05/16/21 06:23 Monocytes % (Manual) 4 % (4-9) 05/16/21 06:23 Eosinophils % (Manual) 1 % (0-6) 05/16/21 06:23 Metamyelocytes % 3 05/16/21 06:23 Myelocytes % 1 05/12/21 05:43 Nucleated RBCs 2 05/11/21 06:12 Plt Morphology Comment Normal (NORMAL) 05/16/21 06:23 RBC Morphology Abnormal (NORMAL) A 05/16/21 06:23 Hypochromasia Slight A 05/16/21 06:23 Anisocytosis Slight A 05/16/21 06:23 Microcytosis Slight A 05/14/21 06:18 Target Cells Present 05/13/21 06:00 Tear Drop Cells Present 05/09/21 15:27 PT 17.0 SECONDS (11.8-14.3) 05/09/21 15:27 INR Target Range - 05/09/21 15: INR 1.46 (0.8-1.3) H 05/09/21 15:27 APTT 25.1 SECONDS (22.9-36.5) 05/09/21 15:27 PTT Comment - 05/09/21 15:27 Sample Site Rr 05/09/21 15:15 ABG pH 7.530 (7.35-7.45) H 05/09/21 15:15 ABG pCO2 27.0 mmHg (35.0-45.0) L 05/09/21 15:15 ABG pO2 74.0 mmHg (80.0-100.0) L 05/09/21 15:15 ABG HCO3 22.6 mmol/L (22-26) 05/09/21 15:15 ABG O2 Saturation 96.0 % (90-100) 05/09/21 15:15 ABG Base Excess 0.9 mmol/L (-2.0-2.0) 05/09/21 15:15 Ti Test Pos 05/09/21 15:15 A-a Gradient 42.0 mmHg 05/09/21 15:15 FiO2 21.0 05/09/21 15:15 Blood Gas Comments Pt betty well cdn 05/09/21 15:15 Sodium 133 mmol/L (136-145) L 05/19/21 05:46 Corrected Sodium 133 mmol/L (136-145) L 05/19/21 05:46 Potassium 3.6 mmol/L (3.5-5.1) 05/19/21 05:46 Chloride 99 mmol/L (98-107) 05/19/21 05:46 Carbon Dioxide 27.2 mmol/L (21-32) 05/19/21 05:46 BUN 5 mg/dL (7-18) L 05/19/21 05:46 Creatinine 0.39 mg/dL (0.55-1.02) L 05/19/21 05:46 Est GFR (MDRD) Af Amer > 60 (>60) 05/19/21 05:46 Est GFR (MDRD) Non-Af > 60 (>60) 05/19/21 05:46 Glucose 113 mg/dL (65-99) H 05/19/21 05:46 POC Glucose (mg/dL) 118 mg/dL (65-99) H 05/19/21 05:30 Lactic Acid 2.0 mmol/L (0.4-2.0) 05/10/21 07:30 Calcium 8.5 mg/dL (8.5-10.1) 05/19/21 05:46 Corrected Calcium 10.4 mg/dL (8.5-10.1) H 05/19/21 05:46 Magnesium 1.8 mg/dL (1.7-2.9) 05/17/21 05:02 Iron 22 ug/dL (50-175) L 05/17/21 05:20 Transferrin 150 mg/dL (202-364) L 05/17/21 05:20 Ferritin 1929 ng/mL (8-252) H 05/17/21 05:20 Total Bilirubin 1.00 mg/dL (0.2-1.0) 05/19/21 05:46 AST 31 Units/L (15-37) 05/19/21 05:46 ALT 33 Units/L (12-78) 05/19/21 05:46 Alkaline Phosphatase 115 Units/L (46-116) 05/19/21 05:46 Creatine Kinase 13 Units/L (26-192) L 05/09/21 15:27 CK-MB (CK-2) < 1.0 ng/mL (0-4.0) 05/09/21 15:27 CK/CKMB % Calc 7.7 % (<4) 05/09/21 15:27 Troponin I High Sens 12.3 ng/L (4.0-60.0) 05/09/21 15:27 B-Natriuretic Peptide 221 pg/mL (0-79) H 05/09/21 15:27 Total Protein 6.2 g/dL (6.4-8.2) L 05/19/21 05:46 Albumin 1.6 g/dL (3.4-5.0) L 05/19/21 05:46 Globulin 4.6 g/dL (2.5-4.5) H 05/19/21 05:46 Albumin/Globulin Ratio 0.3 Ratio (1.1-2.1) L 05/19/21 05:46 Vitamin B12 1154 pg/mL (193-986) H 05/17/21 05:20 Folate 4.8 ng/mL (>8.6) L 05/17/21 05:20 Specimen Type Clean catch urine 05/09/21 17:08 Urine Color Molly (YELLOW) 05/09/21 17:08 Urine Appearance Hazy (CLEAR) 05/09/21 17:08 Urine pH 6.0 (5.0 - 8.0) 05/09/21 17:08 Ur Specific [place] 1.020 (1.000-1.030) 05/09/21 17:08 Urine Protein 4+ (NEGATIVE) 05/09/21 17:08 Urine Glucose (UA) 3+ (NEGATIVE) 05/09/21 17:08 Urine Ketones 1+ (NEGATIVE) 05/09/21 17:08 Urine Occult Blood 5+ (NEGATIVE) 05/09/21 17:08 Urine Nitrite Positive (NEGATIVE) 05/09/21 17:08 Urine Bilirubin Negative (NEGATIVE) 05/09/21 17:08 Urine Urobilinogen 2+ (NORMAL) 05/09/21 17:08 Ur Leukocyte Esterase 3+ (NEGATIVE) 05/09/21 17:08 Urine RBC 10-20 /HPF (0-3) A 05/09/21 17:08 Urine WBC Tntc /HPF (0-5) A 05/09/21 17:08 Ur Squamous Epith Cells Rare /HPF (NEGATIVE) 05/09/21 17:08 Urine Bacteria 2+ /HPF (NEGATIVE) 05/09/21 17:08 Ur Culture Indicated? Yes/culture set up 05/09/21 17:08 Stool Description 150g loose ibrahim 05/17/21 18:10 Stl Occult Blood (IFOB) Negative (NEGATIVE) 05/17/21 18:10 SARS CoV-2 RNA Rapid SATHISH Negative (NEGATIVE) 05/09/21 17:40 Blood Type O POSITIVE 05/09/21 16:10 Antibody Screen Negative 05/09/21 16:10 Crossmatch See Detail 05/09/21 16:10 Plan (1) Bronchiolitis: Status: Acute Plan: Check portable chest x-ray this morning. (2) Acute cystitis: Status: Acute (3) Symptomatic anemia: Status: Acute (4) Hypokalemia: Status: Acute (5) Salmonella bacteremia: Status: Acute Plan: Continue IV Levaquin 750 mg daily. (6) Anemia: Status: Acute Plan: I will check an anemia profile. I will transfuse blood if her hemoglobin drops below 7. I will recheck H&H at 2000 this evening.
[2021-05-19] MEDS: COREG TAB 25 MG PO SCH ×2 (09:32→20:18)
[2021-05-19] MEDS: PREDNISONE TAB 10 MG PO SCH (09:32)
[2021-05-19] MEDS: FOLIC ACID TAB 1 MG PO SCH (09:32)
[2021-05-19] MEDS: PROTONIX TAB 40 MG PO SCH (09:32)
[2021-05-19] MEDS: LEVAQUIN PREMIX IV 750 MG 750 MG/150 ML BAG IV SCH (09:33)
[2021-05-19] MEDS: K-DUR TAB 20 MEQ PO PRN (09:33)
[2021-05-19] MEDS: XOPENEX 1.25 MG/3 ML NEBULE NEB SCH ×4 (09:44→20:00)
[2021-05-19] MEDS: PULMICORT NEB TX 0.5 MG NEB SCH ×2 (09:44→20:00)
[2021-05-19] MEDS: NovoLIN R (or HumuLIN R) SC PRN ×2 (11:25→16:13)
[2021-05-19] MEDS: FERROUS GLUCONATE PO SCH (17:16)
[2021-05-19] MEDS: PEPCID TAB 20 MG PO SCH (20:19)
[2021-05-19] MEDS: TUSSIONEX PENNKINETIC SUSP PO SCH (20:20)
[2021-05-20 05:21] LABS: ALANINE AMINOTRANSFERASE 31 Units/L (12-78); ALBUMIN 1.6 g/dL (3.4-5.0); ALKALINE PHOSPHATASE 116 Units/L (46-116); ASPARTATE AMINO TRANSFERASE 29 Units/L (15-37); BLOOD UREA NITROGEN 6 mg/dL (7-18); CALCIUM 8.3 mg/dL (8.5-10.1); CARBON DIOXIDE 25.1 mmol/L (21-32); CHLORIDE 99 mmol/L (98-107); COR CA(FOR HYPOALB) 10.2 mg/dL (8.5-10.1); CREATININE 0.34 mg/dL (0.55-1.02); SODIUM 132 mmol/L (136-145); TOTAL PROTEIN 6.2 g/dL (6.4-8.2); eGFR NON BLACK RACES > 60 (>60)
[2021-05-20 05:34] LABS: BASOPHILS # (AUTO) 0.1 X10^3/uL (0.0-0.1); BASOPHILS % (AUTO) 0.4 % (0.2-1.0); EOSINOPHILS % (AUTO) 0.1 % (0.9-2.9); HEMOGLOBIN 7.2 g/dL (12.0-16.0); LYMPHOCYTES # (AUTO) 1.6 X10^3/uL (1.3-2.9); LYMPHOCYTES % (AUTO) 8.5 % (21.0-51.0); MEAN CORPUSCULAR HEMOGLOBIN 24.9 pg (27.0-34.0); MEAN CORPUSCULAR HGB CONC 31.2 g/dL (33.0-35.0); MEAN CORPUSCULAR VOLUME 79.9 fL (80.0-100.0); MEAN PLATELET VOLUME 7.8 fL (7.4-11.0); MONOCYTES # (AUTO) 2.5 x10^3/uL (0.3-0.8); MONOCYTES % (AUTO) 13.1 % (0.0-13.0); NEUTROPHILS # (AUTO) 14.7 x10^3/uL (2.2-4.8); NEUTROPHILS % (AUTO) 77.9 % (42.0-75.0); RED BLOOD COUNT 2.88 X10^6/uL (3.5-5.4); RED CELL DISTRIBUTION WIDTH 19.3 % (11.6-16.5); WHITE BLOOD COUNT 18.8 X10^3/uL (3.6-10.0)
[2021-05-20] MEDS: NS 1,000 ML IV 1,000 ML IV SCH ×2 (05:47→18:06)
[2021-05-20] MEDS: TESSALON PERLES PO SCH ×3 (05:48→22:45)
[2021-05-20] MEDS: LEVAQUIN PREMIX IV 750 MG 750 MG/150 ML BAG IV SCH (08:26)
[2021-05-20] MEDS: COREG TAB 25 MG PO SCH ×2 (08:27→21:10)
[2021-05-20] MEDS: PREDNISONE TAB 10 MG PO SCH (08:27)
[2021-05-20] MEDS: PROTONIX TAB 40 MG PO SCH (08:27)
[2021-05-20] MEDS: FOLIC ACID TAB 1 MG PO SCH (08:28)
[2021-05-20] MEDS: XOPENEX 1.25 MG/3 ML NEBULE NEB SCH ×4 (08:31→20:15)
[2021-05-20] MEDS: PULMICORT NEB TX 0.5 MG NEB SCH ×2 (08:31→20:15)
[2021-05-20] MEDS ORDERED: BACTRIM IV SCH (11:00)
[2021-05-20] MEDS ORDERED: D5W IV SCH (11:00)
[2021-05-20] MEDS: BACTRIM IV SCH ×2 (11:33→21:10)
[2021-05-20] MEDS: D5W IV SCH ×2 (11:33→21:10)
[2021-05-20] MEDS: NovoLIN R (or HumuLIN R) SC PRN ×2 (11:34→17:08)
--- NOTE | 2021-05-20 14:33 | PCM.PROG ---
Progress Note Progress Note for Day of Date of Exam: 05/20/21 Subjective Subjective: Pt is a 26 year old female past medical history of Sarcoidosis, CHF, and hypertension admitted for Bronchiolitis, Symptomatic anemia, Acute cystitis, and now Salmonella bacteremia. Blood culture 2/2 positive for Salmonella species on 05/11/21 and 2/2 on 05/14/21. Repeat blood culture on 05/18/21 pending. Patient is immuno-compromised and is on chronic steroid treatment for sarcoidosis. She is doing well, no acute events overnight. She has PICC line. Her respiratory status is at baseline. She has received a total of 2 units packed red blood cells for anemia, hemoglobin is stabilized. She was started on folic acid and iron supplements. Labs: Wbc 18.8, Hgb 7.2, Plt 439, Na 132, K 3.3, Creatinine 0.34, Glucose 113. Pt started on IV Levaquin 750mg daily (05/12). Will start also on bactrim. Continue with current treatment plan. Continue with scheduled bronchodilators and home medications. Closely monitor and follow up labs in the morning. Past Medical Family Social History Past Med/Fam/Surg Hx: No changes since H&P Allergies: Allergies No Known Drug Allergies Allergy (Verified 11/18/17 13:59) Review of Systems ROS: No change since H&P Vital Signs and I&O's Vital Signs: Temperature 99.4 F Pulse Rate [Right Brachial] 111 Pulse Rate [Brachial] 112 Pulse Rate 87 Respiratory Rate 18 Blood Pressure [Right Arm] 97/51 Blood Pressure [Left Arm] 99/61 Blood Pressure 100/70 O2 Sat by Pulse Oximetry 98 Intake and Output: Intake & Output 05/17/21 05/18/21 05/19/21 05/20/21 23:59 23:59 23:59 23:59 Intake Total 1670 / 1670 1969 1613 / 1613 606 / 606 Balance 1670 / 1670 1969 1613 / 1613 606 / 606 Physical Exam Oriented: Normal Eyes: Normal Ear: Normal Nose: Normal Throat: Normal Respiratory: Normal Cardiovascular: Normal : Normal Auscultation: Bowel Sounds: Normal Tenderness: Normal Skin: Normal Musculoskeletal: Normal Psychiatric: Normal Mood Description: Calm and Appropriate Affect: Normal Speech Pattern: Clear and Appropriate Laboratory and Diagnostics Result Diagrams: 05/20/21 04:45 05/20/21 08:31 Labs: 05/18/21 08:26 Blood Blood Culture - Preliminary 05/18/21 08:20 Blood Blood Culture - Preliminary 05/14/21 06:05 Blood Blood Culture - Final Salmonella Species 05/14/21 05:50 Blood Blood Culture - Final Salmonella Species 05/11/21 10:43 Blood Blood Culture - Final Salmonella Species 05/11/21 10:25 Blood Blood Culture - Final Salmonella Species 05/11/21 13:00 Urine,Clean Catch Urine Culture - Final 05/09/21 15:27 Blood Blood Culture - Final Salmonella Species 05/09/21 15:19 Blood Blood Culture - Final Salmonella Species 05/09/21 17:08 Urine,Clean Catch Urine Culture - Final Laboratory WBC 18.8 X10^3/uL (3.6-10.0) H 05/20/21 04:45 RBC 2.88 X10^6/uL (3.5-5.4) L 05/20/21 04:45 Hgb 7.2 g/dL (12.0-16.0) L 05/20/21 04:45 Hct 23.0 % (36.0-47.0) L 05/20/21 04:45 MCV 79.9 fL (80.0-100.0) L 05/20/21 04:45 MCH 24.9 pg (27.0-34.0) L 05/20/21 04:45 MCHC 31.2 g/dL (33.0-35.0) L 05/20/21 04:45 RDW 19.3 % (11.6-16.5) H 05/20/21 04:45 Plt Count 439 X10^3/uL (150.0-450.0) 05/20/21 04:45 Plt Count Comment Adequate (ADEQUATE) 05/16/21 06:23 MPV 7.8 fL (7.4-11.0) 05/20/21 04:45 Neut % (Auto) 77.9 % (42.0-75.0) H 05/20/21 04:45 Lymph % (Auto) 8.5 % (21.0-51.0) L 05/20/21 04:45 [place] % (Auto) 13.1 % (0.0-13.0) H 05/20/21 04:45 Eos % (Auto) 0.1 % (0.9-2.9) L 05/20/21 04:45 Baso % (Auto) 0.4 % (0.2-1.0) 05/20/21 04:45 Neut # (Auto) 14.7 x10^3/uL (2.2-4.8) H 05/20/21 04:45 Lymph # (Auto) 1.6 X10^3/uL (1.3-2.9) 05/20/21 04:45 [place] # (Auto) 2.5 x10^3/uL (0.3-0.8) H 05/20/21 04:45 Eos # (Auto) 0.0 x10^3/uL (0.0-0.2) 05/20/21 04:45 Baso # (Auto) 0.1 X10^3/uL (0.0-0.1) 05/20/21 04:45 Absolute Nucleated RBC 0.0 /100WBC 05/20/21 04:45 Total Counted 100 05/16/21 06:23 Neutrophils % (Manual) 74 % (39-76) 05/16/21 06:23 Band Neutrophils % 7 % (0-10) 05/16/21 06:23 Lymphocytes % (Manual) 11 % (13-43) L 05/16/21 06:23 Monocytes % (Manual) 4 % (4-9) 05/16/21 06:23 Eosinophils % (Manual) 1 % (0-6) 05/16/21 06:23 Metamyelocytes % 3 05/16/21 06:23 Myelocytes % 1 05/12/21 05:43 Nucleated RBCs 2 05/11/21 06:12 Plt Morphology Comment Normal (NORMAL) 05/16/21 06:23 RBC Morphology Abnormal (NORMAL) A 05/16/21 06:23 Hypochromasia Slight A 05/16/21 06:23 Anisocytosis Slight A 05/16/21 06:23 Microcytosis Slight A 05/14/21 06:18 Target Cells Present 05/13/21 06:00 Tear Drop Cells Present 05/09/21 15:27 PT 17.0 SECONDS (11.8-14.3) 05/09/21 15:27 INR Target Range - 05/09/21 15:27 INR 1.46 (0.8-1.3) H 05/09/21 15:27 APTT 25.1 SECONDS (22.9-36.5) 05/09/21 15:27 PTT Comment - 05/09/21 15:27 Sample Site Rr 05/09/21 15:15 ABG pH 7.530 (7.35-7.45) H 05/09/21 15:15 ABG pCO2 27.0 mmHg (35.0-45.0) L 05/09/21 15:15 ABG pO2 74.0 mmHg (80.0-100.0) L 05/09/21 15:15 ABG HCO3 22.6 mmol/L (22-26) 05/09/21 15:15 ABG O2 Saturation 96.0 % (90-100) 05/09/21 15:15 ABG Base Excess 0.9 mmol/L (-2.0-2.0) 05/09/21 15:15 Ti Test Pos 05/09/21 15:15 A-a Gradient 42.0 mmHg 05/09/21 15:15 FiO2 21.0 05/09/21 15:15 Blood Gas Comments Pt betty well cdn 05/09/21 15:15 Sodium 132 mmol/L (136-145) L 05/20/21 04:45 Corrected Sodium TNP 05/20/21 04:45 Potassium 3.7 mmol/L (3.5-5.1) 05/20/21 08:31 Chloride 99 mmol/L (98-107) 05/20/21 04:45 Carbon Dioxide 25.1 mmol/L (21-32) 05/20/21 04:45 BUN 6 mg/dL (7-18) L 05/20/21 04:45 Creatinine 0.34 mg/dL (0.55-1.02) L 05/20/21 04:45 Est GFR (MDRD) Af Amer > 60 (>60) 05/20/21 04:45 Est GFR (MDRD) Non-Af > 60 (>60) 05/20/21 04:45 Glucose 104 mg/dL (65-99) H 05/20/21 04:45 POC Glucose (mg/dL) 156 mg/dL (65-99) H 05/20/21 10:44 Lactic Acid 2.0 mmol/L (0.4-2.0) 05/10/21 07:30 Calcium 8.3 mg/dL (8.5-10.1) L 05/20/21 04:45 Corrected Calcium 10.2 mg/dL (8.5-10.1) H 05/20/21 04:45 Magnesium 1.5 mg/dL (1.7-2.9) L 05/20/21 04:45 Iron 22 ug/dL (50-175) L 05/17/21 05:20 Transferrin 150 mg/dL (202-364) L 05/17/21 05:20 Ferritin 1929 ng/mL (8-252) H 05/17/21 05:20 Total Bilirubin 0.90 mg/dL (0.2-1.0) 05/20/21 04:45 AST 29 Units/L (15-37) 05/20/21 04:45 ALT 31 Units/L (12-78) 05/20/21 04:45 Alkaline Phosphatase 116 Units/L (46-116) 05/20/21 04:45 Creatine Kinase 13 Units/L (26-192) L 05/09/21 15:27 CK-MB (CK-2) < 1.0 ng/mL (0-4.0) 05/09/21 15:27 CK/CKMB % Calc 7.7 % (<4) 05/09/21 15:27 Troponin I High Sens 12.3 ng/L (4.0-60.0) 05/09/21 15:27 B-Natriuretic Peptide 221 pg/mL (0-79) H 05/09/21 15:27 Total Protein 6.2 g/dL (6.4-8.2) L 05/20/21 04:45 Albumin 1.6 g/dL (3.4-5.0) L 05/20/21 04:45 Globulin 4.6 g/dL (2.5-4.5) H 05/20/21 04:45 Albumin/Globulin Ratio 0.3 Ratio (1.1-2.1) L 05/20/21 04:45 Vitamin B12 1154 pg/mL (193-986) H 05/17/21 05:20 Folate 4.8 ng/mL (>8.6) L 05/17/21 05:20 Specimen Type Clean catch urine 05/09/21 17:08 Urine Color Molly (YELLOW) 05/09/21 17:08 Urine Appearance Hazy (CLEAR) 05/09/21 17:08 Urine pH 6.0 (5.0 - 8.0) 05/09/21 17:08 Ur Specific [place] 1.020 (1.000-1.030) 05/09/21 17:08 Urine Protein 4+ (NEGATIVE) 05/09/21 17:08 Urine Glucose (UA) 3+ (NEGATIVE) 05/09/21 17:08 Urine Ketones 1+ (NEGATIVE) 05/09/21 17:08 Urine Occult Blood 5+ (NEGATIVE) 05/09/21 17:08 Urine Nitrite Positive (NEGATIVE) 05/09/21 17:08 Urine Bilirubin Negative (NEGATIVE) 05/09/21 17:08 Urine Urobilinogen 2+ (NORMAL) 05/09/21 17:08 Ur Leukocyte Esterase 3+ (NEGATIVE) 05/09/21 17:08 Urine RBC 10-20 /HPF (0-3) A 05/09/21 17:08 Urine WBC Tntc /HPF (0-5) A 05/09/21 17:08 Ur Squamous Epith Cells Rare /HPF (NEGATIVE) 05/09/21 17:08 Urine Bacteria 2+ /HPF (NEGATIVE) 05/09/21 17:08 Ur Culture Indicated? Yes/culture set up 05/09/21 17:08 Stool Description 150g loose ibrahim 05/17/21 18:10 Stl Occult Blood (IFOB) Negative (NEGATIVE) 05/17/21 18:10 SARS CoV-2 RNA Rapid SATHISH Negative (NEGATIVE) 05/09/21 17:40 Blood Type O POSITIVE 05/09/21 16:10 Antibody Screen Negative 05/09/21 16:10 Crossmatch See Detail 05/09/21 16:10 Plan (1) Bronchiolitis: Status: Acute Plan: Check portable chest x-ray this morning. (2) Acute cystitis: Status: Acute (3) Symptomatic anemia: Status: Acute (4) Hypokalemia: Status: Acute (5) Salmonella bacteremia: Status: Acute Plan: Continue IV Levaquin 750 mg daily. (6) Anemia: Status: Acute Plan: I will check an anemia profile. I will transfuse blood if her hemoglobin drops below 7. I will recheck H&H at 1999 this evening.
[2021-05-20] MEDS: MAGNESIUM SULFATE 1 GRAM/100 mL PREMIX 1 G/100 ML BAG IV PRN ×2 (15:51→17:13)
[2021-05-20] MEDS: FERROUS GLUCONATE PO SCH (17:08)
[2021-05-20] MEDS: TUSSIONEX PENNKINETIC SUSP PO SCH (21:10)
[2021-05-20] MEDS: PEPCID TAB 20 MG PO SCH (21:10)
[2021-05-21] MEDS: BACTRIM IV SCH ×2 (05:11→13:54)
[2021-05-21] MEDS: TESSALON PERLES PO SCH ×2 (05:11→13:55)
[2021-05-21] MEDS: D5W IV SCH ×2 (05:11→13:54)
[2021-05-21 06:15] LABS: BASOPHILS % (AUTO) 0.3 % (0.2-1.0); EOSINOPHILS % (AUTO) 0.1 % (0.9-2.9); HEMATOCRIT 22.4 % (36.0-47.0); HEMOGLOBIN 7.1 g/dL (12.0-16.0); LYMPHOCYTES # (AUTO) 1.3 X10^3/uL (1.3-2.9); LYMPHOCYTES % (AUTO) 8.6 % (21.0-51.0); MEAN CORPUSCULAR HEMOGLOBIN 25.3 pg (27.0-34.0); MEAN CORPUSCULAR HGB CONC 31.7 g/dL (33.0-35.0); MEAN CORPUSCULAR VOLUME 79.8 fL (80.0-100.0); MEAN PLATELET VOLUME 7.4 fL (7.4-11.0); MONOCYTES # (AUTO) 2.2 x10^3/uL (0.3-0.8); MONOCYTES % (AUTO) 14.2 % (0.0-13.0); NEUTROPHILS % (AUTO) 76.8 % (42.0-75.0); RED CELL DISTRIBUTION WIDTH 19.1 % (11.6-16.5); WHITE BLOOD COUNT 15.6 X10^3/uL (3.6-10.0)
[2021-05-21 06:29] LABS: ALANINE AMINOTRANSFERASE 27 Units/L (12-78); ALBUMIN 1.6 g/dL (3.4-5.0); ALKALINE PHOSPHATASE 121 Units/L (46-116); ASPARTATE AMINO TRANSFERASE 25 Units/L (15-37); BLOOD UREA NITROGEN 5 mg/dL (7-18); CARBON DIOXIDE 24.5 mmol/L (21-32); CHLORIDE 98 mmol/L (98-107); COR CA(FOR HYPOALB) 9.9 mg/dL (8.5-10.1); COR NA(FOR HYPERGLY) 132 mmol/L (136-145); CREATININE 0.52 mg/dL (0.55-1.02); SODIUM 131 mmol/L (136-145); TOTAL PROTEIN 6.1 g/dL (6.4-8.2); eGFR NON BLACK RACES > 60 (>60)
[2021-05-21] MEDS: LEVAQUIN PREMIX IV 750 MG 750 MG/150 ML BAG IV SCH (09:39)
[2021-05-21] MEDS: COREG TAB 25 MG PO SCH (09:40)
[2021-05-21] MEDS: FOLIC ACID TAB 1 MG PO SCH (09:40)
[2021-05-21] MEDS: PREDNISONE TAB 10 MG PO SCH (09:41)
[2021-05-21] MEDS: PROTONIX TAB 40 MG PO SCH (09:42)
[2021-05-21] MEDS: XOPENEX 1.25 MG/3 ML NEBULE NEB SCH ×2 (09:53→14:15)
[2021-05-21] MEDS: PULMICORT NEB TX 0.5 MG NEB SCH (09:53)
[2021-05-21 12:23] VITALS: BP 96/55
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
[2021-05-21] MEDS: NS 1,000 ML IV 1,000 ML IV SCH (13:41)
== END 2021-05-21 16:20 | disposition home or self-care (01) | DRG 202 ==
LOC: ER 14:36 → MED/SURG 17:38
PROVIDERS: ADMIT Family Medicine; ATTEND Family Medicine

== ENCOUNTER 2021-06-10 23:17 | Inpatient (IN) ==
[2021-06-10] MEDS ORDERED: XOPENEX 1.25 MG/3 ML NEBULE NEB ONE ×2 (23:28→23:35)
[2021-06-10] MEDS ORDERED: SOLU-Medrol 40 MG VIAL ONE ×2 (23:37→23:52)
[2021-06-10] MEDS: SOLU-Medrol 40 MG VIAL IVP ONE ×2 (23:40→23:57)
[2021-06-10 23:51] LABS: ABG ALLEN TEST POS; ABG HCO3 27.8 mmol/L (22-26)
--- NOTE | 2021-06-10 23:59 | DR.SOBA ---
HPI Time Seen Time Seen by Provider: 06/10/21 23:26 Primary Care Physician Primary Care Physician: JENNIFER COLLINS HPI Comment HPI Comment: A 26 y/o female presenting with c/o SOB that awakened her from sleep. She denies chest pain or palpitations. There is a hx. Sarcoidosis and CHF. Complaints Chief Complaint:: PT AMBULATORY IN ED WITH C/O WAKING UP FROM SLEEP GASPING FOR AIR. COVID-19 Coronavirus risk:travel/contact w/high risk person: No Has patient experienced Coronavirus symptoms: Yes Coronavirus symptoms experienced: Fever, Coughing and Shortness of Breath Reviewed Nurses Notes Reviewed: Yes Source History Provided: Patient Mode of Arrival Mode of Arrival: Ambulatory Timing Onset of Chief Complaint: 06/10/21 Context Onset:: While Asleep PE Risk Factors:: None History of:: CHF Currently on:: Inhaled Bronchodilators Modifying Factors Worsens:: Nothing Improves:: Nothing Associated Signs and Symptoms Associated Signs and Symptoms: Fever and Cough If Chest Pain Quality: denies Sharp, Stabbing, Squeezing, Pressure like, Heavy, Crushing, Burning, Aching and Pleuritic If Cough Cough: Nonproductive PMH PMH Past Medical History: Yes Past Medical History: CHF, Diabetes and Hypertension Past Medical History Comment: SARCOIDOSIS Past Surgical History: Yes Surgical History: Ortho Surgery Family History History of Family Medical Conditions: Yes Family Medical History: Diabetes Mellitus and Hypertension Social History Does patient currently use any type of tobacco product: No Have you used tobacco products in the last 12 months: No Type of Tobacco Use: None Does any household member use tobacco: No Alcohol Use: None Do you use any recreational Drugs:: No Lives With: Family Lives Where: Home Travel Risk Coronavirus risk:travel/contact w/high risk person: No Has patient experienced Coronavirus symptoms: Yes Coronavirus symptoms experienced: Fever, Coughing and Shortness of Breath Infectious screening In the last 2 months have you had wt loss of >10#?: NO Have you had fever, night sweats or hemotysis?: No Have you traveled outside the country in the last 6 months?: No Isolation: Droplet ROS Review of Systems Constitutional: No Symptoms Reported Eyes: No Symptoms Reported ENTM: No Symptoms Reported Respiratoy: Non-Productive Cough Cardiovascular: No Symptoms Reported Gastrointestinal/Abdominal: No Symptoms Reported Genitourinary: No Symptoms Reported Neurological: No Symptoms Reported Musculoskeletal: No Symptoms Reported Integumentary: No Symptoms Reported Hematologic/Lymphatic: No Symptoms Reported Endocrine: No Symptoms Reported Psychiatric: No Symptoms Reported PE Vital Signs Vitals: Temperature 98.9 F Pulse Rate 122 Respiratory Rate 28 Blood Pressure [Right Arm] 96/55 Blood Pressure 114/59 O2 Sat by Pulse Oximetry 96 General Limitations: No Limitations General Appearance: Alert and In No Apparent Distress Head Head Exam: Normal Inspection, Atraumatic and Normocephalic Eyes Eye exam: Normal Appearance and EOMI ENT ENT Exam: Normal Exam, Normal Oropharynx, Normal External Ear Exam and Mucous Membranes Moist Neck Neck Exam: Normal Inspection, Full ROM and Trachea Midline Chest Chest Inspection: Normal Inspection and Symmetric Chest Wall Rise Respiratory Respiratory Exam: Other (tachypnea) Respiratory Exam: Bilateral: Wheezing Cardiovascular Cardiovascular Exam: Tachycardia, Normal Heart Sounds, +S1 and +S2 Abdominal Exam Abdominal Exam: Normal Inspection, Normal Bowel Sounds and Soft Extremities Extremities Exam: Normal Inspection and Full ROM Back Back Exam: Normal Inspection and Full ROM Neurologic Neurological Exam: Alert and Oriented X3 Psychiatric Psychiatric Exam: Normal Affect and Normal Mood Skin Skin Exam: Intact MDM Differential Diagnosis Differential Diagnosis: Pneumonia and Other (Sarcoidosis Exacerbation) COURSE Reevaluation 1st: Improved Education/Counseling Education/Counseling: Patient, Family, Education and Counseling Educated On: Treatment, Diagnosis, Prognosis and Needs for Follow Up ROR Labs Reviewed Laboratory Results Reviewed?: Yes Result Diagrams: 06/10/21 23:35 06/10/21 23:35 Laboratory: WBC 27.0 X10^3/uL (3.6-10.0) H 06/10/21 23:35 RBC 2.84 X10^6/uL (3.5-5.4) L 06/10/21 23:35 Hgb 7.1 g/dL (12.0-16.0) L 06/10/21 23:35 Hct 22.5 % (36.0-47.0) L 06/10/21 23:35 MCV 79.2 fL (80.0-100.0) L 06/10/21 23:35 MCH 25.0 pg (27.0-34.0) L 06/10/21 23:35 MCHC 31.6 g/dL (33.0-35.0) L 06/10/21 23:35 RDW 18.0 % (11.6-16.5) H 06/10/21 23:35 Plt Count 574 X10^3/uL (150.0-450.0) H 06/10/21 23:35 Plt Count Comment Increased (ADEQUATE) A 06/10/21: MPV 7.8 fL (7.4-11.0) 06/10/21 23:35 Neut % (Auto) 89.4 % (42.0-75.0) H 06/10/21 23:35 Lymph % (Auto) 2.8 % (21.0-51.0) L 06/10/21 23:35 [place] % (Auto) 7.5 % (0.0-13.0) 06/10/21 23:35 Eos % (Auto) 0.0 % (0.9-2.9) L 06/10/21 23:35 Baso % (Auto) 0.3 % (0.2-1.0) 06/10/21 23:35 Neut # (Auto) 24.2 x10^3/uL (2.2-4.8) H 06/10/21 23:35 Lymph # (Auto) 0.8 X10^3/uL (1.3-2.9) L 06/10/21 23:35 [place] # (Auto) 2.0 x10^3/uL (0.3-0.8) H 06/10/21 23:35 Eos # (Auto) 0.0 x10^3/uL (0.0-0.2) 06/10/21 23:35 Baso # (Auto) 0.1 X10^3/uL (0.0-0.1) 06/10/21 23:35 Absolute Nucleated RBC 0.0 /100WBC 06/10/21 23: Total Counted 100 06/10/21 23: Neutrophils % (Manual) 89 % (39-76) H 06/10/21 23:35 Lymphocytes % (Manual) 4 % (13-43) L 06/10/21 23:35 Monocytes % (Manual) 7 % (4-9) 06/10/21 23:35 Plt Morphology Comment Normal (NORMAL) 06/10/21 23: RBC Morphology Abnormal (NORMAL) A 06/10/21 23:35 Hypochromasia Slight A 06/10/21 23:35 Anisocytosis Slight A 06/10/21 23:35 Microcytosis Slight A 06/10/21 23:35 Sample Site [place] 06/10/21 23:51 ABG pH 7.520 (7.35-7.45) H 06/10/21 23:51 ABG pCO2 34.0 mmHg (35.0-45.0) L 06/10/21 23:51 ABG pO2 76.0 mmHg (80.0-100.0) L 06/10/21 23:51 ABG HCO3 27.8 mmol/L (22-26) H 06/10/21 23:51 ABG O2 Saturation 96.0 % (90-100) 06/10/21 23:51 ABG Base Excess 5.0 mmol/L (-2.0-2.0) H 06/10/21 23:51 Ti Test Pos 06/10/21 23:51 A-a Gradient 31.0 mmHg 06/10/21 23:51 FiO2 21.0 06/10/21 23:51 Blood Gas Comments Sharlene abg well-mtf 06/10/21 23:51 Sodium 132 mmol/L (136-145) L 06/10/21 23:35 Corrected Sodium 135 mmol/L (136-145) L 06/10/21 23:35 Potassium 2.9 mmol/L (3.5-5.1) L* 06/10/21 23:35 Chloride 96 mmol/L (98-107) L 06/10/21 23:35 Carbon Dioxide 27.8 mmol/L (21-32) 06/10/21 23:35 BUN 7 mg/dL (7-18) 06/10/21 23:35 Creatinine 0.67 mg/dL (0.55-1.02) 06/10/21 23:35 Est GFR (MDRD) Af Amer > 60 (>60) 06/10/21 23:35 Est GFR (MDRD) Non-Af > 60 (>60) 06/10/21 23:35 Glucose 222 mg/dL (65-99) H 06/10/21 23:35 Calcium 9.5 mg/dL (8.5-10.1) 06/10/21 23:35 Corrected Calcium 11.4 mg/dL (8.5-10.1) H 06/10/21 23:35 Total Bilirubin 0.70 mg/dL (0.2-1.0) 06/10/21 23:35 AST 16 Units/L (15-37) 06/10/21 23:35 ALT 21 Units/L (12-78) 06/10/21 23:35 Alkaline Phosphatase 178 Units/L (46-116) H 06/10/21 23:35 Total Protein 7.3 g/dL (6.4-8.2) 06/10/21 23:35 Albumin 1.6 g/dL (3.4-5.0) L 06/10/21 23:35 Globulin 5.7 g/dL (2.5-4.5) H 06/10/21 23:35 Albumin/Globulin Ratio 0.3 Ratio (1.1-2.1) L 06/10/21 23:35 XRAY XRAY Interpreted by: Self X-ray Results: CXR: Borderline enlarged cardiac silhouette. Large Rt. sided adenopathy/mass is unchanged from previous CXR. Radiology report is pending. Opioid Opioid Risk Tool Age (Michael box if 16-45): Yes History of Preadolescent Sexual Abuse: No Total: 1 Total Score Risk Category: Low Risk Copyright: Prasanna SHAH predicting aberrant behaviors Diagnosis Discharge Problem: Sarcoidosis, lung, Hypokalemia, Neutrophilic leukocytosis, Anemia in chronic illness Dyspnea Qualifiers: Dyspnea type: shortness of breath Qualified Code(s): R06.02 - Shortness of breath
[2021-06-11 00:03] LABS: MEAN CORPUSCULAR VOLUME 79.2 fL (80.0-100.0)
[2021-06-11 00:06] LABS: BASOPHILS # (AUTO) 0.1 X10^3/uL (0.0-0.1); BASOPHILS % (AUTO) 0.3 % (0.2-1.0); HEMATOCRIT 22.5 % (36.0-47.0); HEMOGLOBIN 7.1 g/dL (12.0-16.0); LYMPHOCYTES # (AUTO) 0.8 X10^3/uL (1.3-2.9); LYMPHOCYTES % (AUTO) 2.8 % (21.0-51.0); MEAN CORPUSCULAR HGB CONC 31.6 g/dL (33.0-35.0); MEAN PLATELET VOLUME 7.8 fL (7.4-11.0); MONOCYTES % (AUTO) 7.5 % (0.0-13.0); NEUTROPHILS # (AUTO) 24.2 x10^3/uL (2.2-4.8); NEUTROPHILS % (AUTO) 89.4 % (42.0-75.0); RED BLOOD COUNT 2.84 X10^6/uL (3.5-5.4)
[2021-06-11 00:14] LABS: ALANINE AMINOTRANSFERASE 21 Units/L (12-78); ALBUMIN 1.6 g/dL (3.4-5.0); ALKALINE PHOSPHATASE 178 Units/L (46-116); ASPARTATE AMINO TRANSFERASE 16 Units/L (15-37); BLOOD UREA NITROGEN 7 mg/dL (7-18); CALCIUM 9.5 mg/dL (8.5-10.1); CARBON DIOXIDE 27.8 mmol/L (21-32); CHLORIDE 96 mmol/L (98-107); COR CA(FOR HYPOALB) 11.4 mg/dL (8.5-10.1); COR NA(FOR HYPERGLY) 135 mmol/L (136-145); CREATININE 0.67 mg/dL (0.55-1.02); SODIUM 132 mmol/L (136-145); TOTAL PROTEIN 7.3 g/dL (6.4-8.2); eGFR NON BLACK RACES > 60 (>60)
[2021-06-11 00:32] LABS: ANISOCYTOSIS SLIGHT; HYPOCHROMASIA SLIGHT; MICROCYTOSIS SLIGHT; PLATELET MORPHOLOGY COMMENT NORMAL (NORMAL)
[2021-06-11] MEDS ORDERED: K-RIDER 10 MEQ/NS 100 ML 10 MEQ/100 ML BAG IV ONE ×3 (01:07→01:11)
[2021-06-11] MEDS ORDERED: K-DUR TAB 20 MEQ PO ONE ×2 (01:10→01:14)
[2021-06-11] MEDS ORDERED: NS 100 ML IV 100 ML ONE ×2 (01:11→09:23)
[2021-06-11] MEDS ORDERED: XOPENEX 1.25 MG/3 ML NEBULE NEB ONE (01:19)
[2021-06-11] MEDS ORDERED: PEPCID TAB 20 MG PO SCH (02:00)
[2021-06-11] MEDS ORDERED: COREG TAB 25 MG PO SCH (02:00)
--- NOTE | 2021-06-11 02:12 | RAD ---
STUDY: CHEST, 1 VIEWCOMPARISON: May 16, [address] chest on September 21, 2020 and chest x-ray dated September 21, 2020HISTORY: SOB, PT AMBULATORY IN ED WITH C/O WAKING UP FROM SLEEP GASPING FOR AIRFINDINGS:Persistent massive right mediastinal mass is seen with cardiomegaly. No pleural effusion or gross pneumothorax is identified. Trachea is midline.Patient had a CT scan of the chest on September 21, 2020 which was worrisome for malignancy. The mass was initially identified on September 21, 2020 which is markedly increased in size since that exam. On today's study the mass measures 12 x 7.7 cm (previously the mass measured 6 x 4.7 cm).IMPRESSION:Persistent massive right mediastinal and hilar mass which is progressively increased in size now measuring 12 x 7.7 cm occupying a majority of the right jamie thorax. This is worrisome for progression of malignancy.Electronically signed by: Raad Lemos (Jun 11, 2021 02:11:22)
[2021-06-11] MEDS: HumaLOG SC SCH ×2 (03:08→06:27)
[2021-06-11 03:57] VITALS: BMI 22.5
[2021-06-11] MEDS: PEPCID TAB 20 MG PO SCH ×2 (05:03→21:21)
[2021-06-11 05:20] LABS: ALANINE AMINOTRANSFERASE 19 Units/L (12-78); ALBUMIN 1.4 g/dL (3.4-5.0); ALKALINE PHOSPHATASE 190 Units/L (46-116); ASPARTATE AMINO TRANSFERASE 19 Units/L (15-37); BLOOD UREA NITROGEN 8 mg/dL (7-18); CARBON DIOXIDE 25.5 mmol/L (21-32); CHLORIDE 98 mmol/L (98-107); COR CA(FOR HYPOALB) 11.1 mg/dL (8.5-10.1); COR NA(FOR HYPERGLY) 136 mmol/L (136-145); CREATININE 0.55 mg/dL (0.55-1.02); SODIUM 133 mmol/L (136-145); TOTAL PROTEIN 6.9 g/dL (6.4-8.2); eGFR NON BLACK RACES > 60 (>60)
[2021-06-11 05:55] LABS: BASOPHILS # (AUTO) 0.1 X10^3/uL (0.0-0.1); BASOPHILS % (AUTO) 0.4 % (0.2-1.0); HEMATOCRIT 21.9 % (36.0-47.0); LYMPHOCYTES # (AUTO) 0.6 X10^3/uL (1.3-2.9); LYMPHOCYTES % (AUTO) 2.1 % (21.0-51.0); MEAN CORPUSCULAR HEMOGLOBIN 24.2 pg (27.0-34.0); MEAN CORPUSCULAR HGB CONC 30.2 g/dL (33.0-35.0); MEAN CORPUSCULAR VOLUME 80.4 fL (80.0-100.0); MONOCYTES # (AUTO) 1.3 x10^3/uL (0.3-0.8); MONOCYTES % (AUTO) 4.8 % (0.0-13.0); NEUTROPHILS # (AUTO) 25.1 x10^3/uL (2.2-4.8); NEUTROPHILS % (AUTO) 92.7 % (42.0-75.0); RED BLOOD COUNT 2.72 X10^6/uL (3.5-5.4); RED CELL DISTRIBUTION WIDTH 18.4 % (11.6-16.5); WHITE BLOOD COUNT 27.1 X10^3/uL (3.6-10.0)
[2021-06-11 06:02] LABS: HEMOGLOBIN 6.6 g/dL (12.0-16.0); PLATELET MORPHOLOGY COMMENT NORMAL (NORMAL)
[2021-06-11 06:03] LABS: ANISOCYTOSIS SLIGHT; HYPOCHROMASIA SLIGHT
[2021-06-11] MEDS ORDERED: GLUCOPHAGE ONE (08:27)
[2021-06-11] MEDS: PREDNISONE TAB 10 MG PO SCH ×4 (08:51→21:21)
[2021-06-11] MEDS: PROTONIX TAB 40 MG PO SCH (08:51)
[2021-06-11] MEDS: FOLIC ACID TAB 1 MG PO SCH (08:51)
[2021-06-11] MEDS: COREG TAB 25 MG PO SCH ×2 (08:51→21:22)
[2021-06-11] MEDS ORDERED: GLUCOPHAGE PO SCH (09:00)
--- NOTE | 2021-06-11 09:46 | CT ---
HISTORYchest massSTUDYCHEST WITH CONCOMPARISONCT chest from 09/21/2020. Chest radiograph from 06/10/2021.TECHNIQUEMultiple axial images of the chest were obtained from the thoracic inlet to the upper abdomen [after] the administration of IV contrast. Dose reduction techniques including Automated Exposure Control (AEC) and adjustment of mA and kV were utilized.FINDINGSThe thyroid gland appears benign. Non-atherosclerotic normal caliber thoracic aorta. Normal caliber patent central pulmonary artery. The heart is borderline in size. Small pericardial effusion. There is masslike conglomerate of soft tissue in the mediastinum and saibno. This involves the paratracheal stations, subcarinal station, bilateral sabino, prevascular space, and AP window. There is extension of the soft tissue to the right of the right atrium which was not present on prior study. Compare image 33 series 4 to image 40 series 4 from prior study.The masslike conglomerate on the current study measures approximately 15.8 cm medial-lateral by 9.8 cm AP on image 22 series 4 and approximately 13.6 cm craniocaudal at the right aspect of the mediastinum and sabino image 20 series 7. On prior study masslike conglomerate measured approximately 14.5 cm medial-lateral by 8.6 cm AP by 10 cm craniocaudal image 30 series 4 and image 24 series 7.There are new soft tissue deposits in the right pericardial fat image 43 series 4.The visualized upper abdomen appears benign.No acute osseous abnormality. The trachea appears patent. There is similar narrowing of the right distal mainstem bronchus image 26 series 5.Mildly worse pulmonary nodule and airspace opacity in the right middle lobe image 38 series 5 with nodules measuring up to 11 x 5 mm. There is a right lower lobe pulmonary nodule measuring 15 x 14 mm image 36 series 5 new from prior.There is a small right pleural effusion.No pneumothorax.IMPRESSIONInterval enlargement compared to prior CT from 09/21/2020 of masslike soft tissue deposits in the mediastinum and sabino.New/worse airspace opacity and pulmonary nodules in the right middle and lower lobe.Consider biopsy if not already performed. Differential includes sarcoidosis, lymphoma, and metastasis.Electronically signed by: Dixon Johnson (Jun 11, 2021 09:45:08)
[2021-06-11 10:22] LABS: BILIRUBIN,URINE NEGATIVE (NEGATIVE); BLOOD/HEMOGLOBIN,URINE 2+ (NEGATIVE); GLUCOSE, URINE 4+ (NEGATIVE); KETONES,URINE 1+ (NEGATIVE); LEUKOCYTE ESTERASE ,URINE NEGATIVE (NEGATIVE); NITRITES,URINE NEGATIVE (NEGATIVE); PH,URINE 6.5 (5.0 - 8.0); PROTEIN,URINE 2+ (NEGATIVE); UROBILINOGEN,URINE 2+ (NORMAL)
[2021-06-11 10:41] LABS: APPEARANCE,URINE HAZY (CLEAR); BACTERIA,URINE TRACE /HPF (NEGATIVE); COLOR,URINE YELLOW (YELLOW); SQUAMOUS EPITHELIAL CELL,UR NUMEROUS /HPF (NEGATIVE); YEAST,URINE FEW /HPF (NEGATIVE)
[2021-06-11] MEDS ORDERED: NS 500 ML IV 500 ML IV ONE (11:24)
[2021-06-11] MEDS ORDERED: DUONEB 0.5 MG/3 MG (3 mL) NEB SCH (12:00)
[2021-06-11] MEDS: INVanz INJ 1 GRAM VIAL 1 G in NS 100 ML IV 100 ML IV SCH (13:51)
--- NOTE | 2021-06-11 13:52 | DR.H&P ---
H&P - History & Physical for Day of: H&P Date: 06/11/21 - Chief Complaint Chief Complaint: SOB - History of Present Illness History of Present Illness: PT IS 26 BF ER ADMISSION AFTER PRESENTING WITH CO SOB THAT "WOKE HER UP" PT HAS PMH OF SARCOIDOSIS, CHF, ANEMIA, DM. PT IS UNDER THE CARE OF [facility] AND RICKIE MALIK, DR MEHTA IS HER FREIGHT CALLER. PT REPORTED SHE LAST SEEN HER MANUFACTURERS AGENT AT [facility] IN MAR 2021 AND LAST ECHO IN [place] IN APRIL 2021. PT ADMITTED FOR TREATMENT OF ACUTE ILLNESS. - Past Medical History Past Medical History: Hypertension, Diabetes, CHF Additional Medical History: NON ISCHEMIC CARDIOMYOPATHY - Past Surgical History Surgical History: Ortho Surgery - Family History Family Medical History: Diabetes Mellitus, Hypertension - Social History Does patient currently use any type of tobacco product: No Have you used tobacco products in the last 12 months: No Type of Tobacco Use: None Does any household member use tobacco: No Alcohol Use: None Drug Use: None - Medications Home Medications: No Known Drug Allergies Allergy (Verified 11/18/17 13:59) CONTINUE taking the following medications metformin 500 mg PO BID 06/10/21 [History] - Review of Systems Constitutional: Weakness, Malaise. denies: Fever Eyes: No Symptoms Reported ENT: No Symptoms Reported Respiratory: Shortness of Breath, SOB with Excertion Cardiovascular: denies: Chest Pain, Edema Gastrointestinal: No Symptoms Reported Genitourinary: No Symptoms Reported Musculoskeletal: No Symptoms Reported Skin: No Symptoms Reported Neurological: Weakness (FATIGUE) - Physical Exam Vital Signs: Temperature 97.5 F Pulse Rate [Left Brachial] 118 Pulse Rate 122 Respiratory Rate 20 Blood Pressure [Left Arm] 105/57 Blood Pressure [Right Arm] 96/55 Blood Pressure 114/59 O2 Sat by Pulse Oximetry 96 Oriented: Normal Eyes: Normal Ear: Normal Nose: Normal Throat: Normal Respiratory: RML Diminished, RLL Diminished, LML Diminished, LLL Diminished Cardiovascular: Tachycardia : Normal Auscultation: Bowel Sounds: Normal Palpation: Normal Tenderness: Normal Skin: Other (MILD DIFFUSE PALLOR) Musculoskeletal: Normal Psychiatric: Normal Mood Description: Calm Speech Pattern: Clear, Appropriate - Assessment/Plan (1) SOB (shortness of breath) Status: Acute (2) Symptomatic anemia Status: Acute Plan: ADMIT, CXR ON ADMISSION. BLOOD AND URINE CULTURES, SUPPLEMENTAL O2. ROOM AIR ABG ON ADMISSION. CARDIAC MONITORING. VERIFY HOME MEDICATION, BP CONTROL. STRICT I &OS, IV ATBX THERAPY, OBTAIN LAST ECHO REPORT (3) Non-ischemic cardiomyopathy Status: Acute (4) CHF (congestive heart failure) Status: Acute (5) Hypokalemia Status: Acute (6) Sarcoidosis of lung Status: Acute (7) Mass of right lung Status: Acute - Allergies Allergies/Adverse Reactions: Allergies Allergy/AdvReac Type Severity Reaction Status Date / Time No Known Drug Allergies Allergy Verified 11/18/17 13:59
[2021-06-11] MEDS ORDERED: INJECTAFER 750 MG in NS 250 ML IV 250 ML IV NR (14:00)
[2021-06-11] MEDS ORDERED: LASIX IVP SCH (14:00)
[2021-06-11] MEDS ORDERED: NovoLIN R (or HumuLIN R) SUBCUT PRN (14:03)
[2021-06-11] MEDS: HumaLOG SC PRN ×2 (14:27→17:12)
[2021-06-11] MEDS ORDERED: DUONEB 0.5 MG/3 MG (3 mL) NEB PRN (15:01)
[2021-06-11] MEDS: FERROUS GLUCONATE PO SCH (17:37)
--- NOTE | 2021-06-11 18:46 | RAD ---
HISTORY:ConstipationStudy: KUBComparison:NoneFindings:No radiopaque renal stones identified. Bowel gas pattern is nonobstructive with moderate stool in the right colon. Soft tissues are unremarkable.IMPRESSION:Moderate stool in the right colon with overall nonobstructive pattern.Electronically signed by: ADELINE GILLESPIE (Jun 11, 2021 18:45:04)
[2021-06-11] MEDS ORDERED: NS 250 ML IV 250 ML IV ONE (19:05)
[2021-06-11] MEDS ORDERED: SNACK - Diabetic Appropriate PO SCH (20:00)
[2021-06-11] MEDS: TYLENOL 325 MG TAB PO PRN (20:45)
[2021-06-11] MEDS ORDERED: TYLENOL 325 MG TAB PO ONE (20:53)
[2021-06-12 02:55] LABS: BASOPHILS # (AUTO) 0.1 X10^3/uL (0.0-0.1); BASOPHILS % (AUTO) 0.5 % (0.2-1.0); EOSINOPHILS % (AUTO) 0.1 % (0.9-2.9); LYMPHOCYTES # (AUTO) 0.6 X10^3/uL (1.3-2.9); LYMPHOCYTES % (AUTO) 2.2 % (21.0-51.0); MEAN CORPUSCULAR HEMOGLOBIN 25.5 pg (27.0-34.0); MEAN CORPUSCULAR VOLUME 79.5 fL (80.0-100.0); MEAN PLATELET VOLUME 7.6 fL (7.4-11.0); MONOCYTES # (AUTO) 1.5 x10^3/uL (0.3-0.8); MONOCYTES % (AUTO) 5.2 % (0.0-13.0); NEUTROPHILS # (AUTO) 26.6 x10^3/uL (2.2-4.8); RED BLOOD COUNT 3.39 X10^6/uL (3.5-5.4); RED CELL DISTRIBUTION WIDTH 17.7 % (11.6-16.5); WHITE BLOOD COUNT 28.9 X10^3/uL (3.6-10.0)
[2021-06-12 03:00] LABS: HEMOGLOBIN 8.6 g/dL (12.0-16.0)
[2021-06-12 03:07] LABS: ALANINE AMINOTRANSFERASE 18 Units/L (12-78); ALBUMIN 1.5 g/dL (3.4-5.0); ALKALINE PHOSPHATASE 151 Units/L (46-116); ASPARTATE AMINO TRANSFERASE 17 Units/L (15-37); BLOOD UREA NITROGEN 11 mg/dL (7-18); CALCIUM 8.7 mg/dL (8.5-10.1); CARBON DIOXIDE 28.5 mmol/L (21-32); CHLORIDE 98 mmol/L (98-107); COR CA(FOR HYPOALB) 10.7 mg/dL (8.5-10.1); COR NA(FOR HYPERGLY) 138 mmol/L (136-145); CREATININE 0.48 mg/dL (0.55-1.02); SODIUM 137 mmol/L (136-145); TOTAL PROTEIN 6.7 g/dL (6.4-8.2); eGFR NON BLACK RACES > 60 (>60)
[2021-06-12 03:16] LABS: BAND NEUTROPHILS % 3 % (0-10); HYPOCHROMASIA SLIGHT; PLATELET MORPHOLOGY COMMENT NORMAL (NORMAL)
[2021-06-12 03:17] LABS: ANISOCYTOSIS SLIGHT; MICROCYTOSIS SLIGHT; TARGET CELLS PRESENT
[2021-06-12] MEDS ORDERED: ROBITUSSIN DM PO PRN (03:28)
[2021-06-12] MEDS: PROTONIX TAB 40 MG PO SCH (08:19)
[2021-06-12] MEDS: FOLIC ACID TAB 1 MG PO SCH (08:19)
[2021-06-12] MEDS: COREG TAB 25 MG PO SCH ×2 (08:19→21:25)
[2021-06-12] MEDS: PREDNISONE TAB 10 MG PO SCH ×4 (08:19→21:26)
[2021-06-12] MEDS: INVanz INJ 1 GRAM VIAL 1 G in NS 100 ML IV 100 ML IV SCH (08:19)
[2021-06-12] MEDS ORDERED: NS 250 ML IV 250 ML IV ONE (08:31)
[2021-06-12] MEDS ORDERED: TUSSIONEX PENNKINETIC SUSP PO PRN (08:50)
[2021-06-12] MEDS ORDERED: LASIX IVP SCH (09:00)
[2021-06-12] MEDS ORDERED: MICRO K EXTEN CAP 10 MEQ PO SCH (09:00)
--- NOTE | 2021-06-12 09:48 | RAD ---
HISTORYShortness of breathSTUDYChest AP [id number]/13/2022 chest x-ray, CT chest with contrast 06/11/2021FINDINGSThe heart is enlarged. No congestive heart failure is noted. No significant changes noted in the large right hilar and suprahilar mass lesion with associated increased density in widening of the mediastinum consistent with marked mediastinal lymphadenopathy when compared to the prior examination. No acute infiltrates or pleural effusions are identified. Bony thorax is unremarkable.IMPRESSIONNo change when compared with the prior examination.Electronically signed by: ROC SEVILLA (Jun 12, 2021 09:46:57)
[2021-06-12] MEDS: HumaLOG SC PRN ×2 (12:29→21:24)
[2021-06-12] MEDS ORDERED: LEVAQUIN PREMIX IV 500 MG 500 MG/100 ML BAG IV SCH (14:00)
[2021-06-12] MEDS: TYLENOL 325 MG TAB PO PRN (15:40)
[2021-06-12] MEDS: FERROUS GLUCONATE PO SCH (17:07)
[2021-06-12 17:16] LABS: BILIRUBIN,URINE 1+ (NEGATIVE); BLOOD/HEMOGLOBIN,URINE 1+ (NEGATIVE); GLUCOSE, URINE NEGATIVE (NEGATIVE); KETONES,URINE NEGATIVE (NEGATIVE); LEUKOCYTE ESTERASE ,URINE 1+ (NEGATIVE); NITRITES,URINE NEGATIVE (NEGATIVE); PROTEIN,URINE 2+ (NEGATIVE); UROBILINOGEN,URINE 4+ (NORMAL)
[2021-06-12 17:22] LABS: APPEARANCE,URINE SLIGHTLY HAZY (CLEAR); COLOR,URINE ORANGE (YELLOW)
[2021-06-12 17:23] LABS: BACTERIA,URINE NEGATIVE /HPF (NEGATIVE); RBC,URINE 0-2 /HPF (0-3); SQUAMOUS EPITHELIAL CELL,UR RARE /HPF (NEGATIVE)
[2021-06-12] MEDS: PEPCID TAB 20 MG PO SCH (21:27)
[2021-06-13 00:04] VITALS: BP 108/66
--- NOTE | 2021-07-30 23:07 | PCM.DCPLAN ---
Discharge Plan - Discharge Plan Hospital Course: Admit date 06/11/21 Discharge date 06/13/21 DOS 06/13/21 Admit diagnosis(1) SOB (shortness of breath) (2) Symptomatic anemia (3) Non-ischemic cardiomyopathy (4) CHF (congestive heart failure) (5) Hypokalemia (6) Sarcoidosis of lung (7) Mass of right lung Discharge diagnosis SAME Hospital CourseMs. Wellington is a 26-year-old black female who is an ER admission with symptomatic anemia, a large mediastinal mass, with a history of CHF, sarcoidosis, induced cardiomyopathy. She had a hemoglobin of 6.6 yesterday. She did receive 2 units of packed red blood cells with Lasix 20 IV x1 dose. After the first unit, hemoglobin was 8.6. White count is at 28.9. She is on Invanz. At this time, blood cultures obtained on admission did show growth in one culture tube for sure. Hopefully, we will have preliminary results today, but she is continued on Invanz. Her renal function is stable with a bun of 11, creatinine of 0.48. She is a diabetic with stable glucose at 150. Her potassium was 3.4 and we ordered a potassium replacement. She tolerated transfusion well yesterday. Her bilirubin was up a little bit at 2.2 this morning following transfusion. The patient states she did not rest at all last night because she coughed all night long. She normally takes hydrocodone syrup or cough syrup to help control her cough. She was also complaining of some right-sided upper abdominal and right rib pain. We ordered a repeat chest x-ray this morning. Her blood pressure was stable at 107/56. She is on 2 L nasal cannula with saturation 98%. She still has a little tachycardia with sinus tach around 110. We did discuss with patient the need to transfer to her specialist at [facility]. She is in need of tertiary care facility due to her suspected sepsis as well as history of heart failure and cardiomyopathy due to her sarcoidosis. The patient is under the care of Dr. Juanito Menjivar at [facility]. Dr. Vidal spoke with them yesterday afternoon and we are currently awaiting bed placement. Other than her pain, the patient also reports she has had a poor appetite. She is going to attempt to eat after taking Tussionex this morning. PATIENT WAS TRANSFERRED TO [facility] FOR FURTHER TREATMENT. GREATER THAN 90 SPENT ON DISCHARGE ARRANGING THIS TRANSFER. PATIENT WAS SEEN AND EXAMINED BY DR VIDAL HIMSELF; DOCUMENTING THIS DOCUMENT A SCRIBE. Discharge time spent >90 mins arranging transfer. Disposition: XFER SHT-TRM HOSP Condition: Stable Health Concerns: Post Hospitalization: new medications and changes needed to prevent readmission or further decline. Pt educated and given instructions on all concerns. Plan of Treatment: Continue with present treatment and follow up plan. Pt is to keep follow up appointment as instructed and take medications as ordered. Prescriptions: No Action carvedilol 25 mg Tablet 25 mg PO Q12H famotidine 20 mg Tablet 20 mg PO QHS ipratropium-albuterol 0.5 mg-3 mg(2.5 mg base)/3 mL Solution For Nebulization 3 ml INHALATION Q6H PRN metformin 500 mg tablet 500 mg PO BID pantoprazole 40 mg Tablet,Delayed Release (Dr/Ec) 40 mg PO QAM prednisone 10 mg Tablet 10 mg PO QID - Orders to Discharge Patient Discharge Orders: Discharge by Transfer to Outside Facility (Routine); Ordered 06/13/21 Ordered By: ALVARO VIDAL
== END 2021-06-13 03:35 | disposition short-term general hospital (02) | DRG 197 ==
LOC: ER 23:17 → MED/SURG 06-11 01:33
PROVIDERS: ADMIT Internal Medicine; ATTEND Internal Medicine

== ENCOUNTER 2021-10-13 11:07 | Observation (INO) ==
[2021-10-13 11:11] VITALS: BMI 21.1
--- NOTE | 2021-10-13 11:49 | DR.EXTPAIN ---
HPI Time seen Time Seen by Provider: 10/13/21 11:46 PCP Primary Care Physician: Kulwinder Complaint/Symptoms Chief Complaint Doctor Comments: 26 y/o female presents with a painful, swollen area of her left buttocks. Started as a blister last week. Denies known trauma. Cassel it this am, now large and tender. Pain is constant, sharp, does not radiate. Is worse with palpation, nothingmakes it better. Denies associated fever, chills, nausea, vomiting. No prior h/o abscesses. Pt is a diabetic, has a h/o Hodgkin's lymphoma. On chemotherapy past two months, gets chemo 2x/month. Chief Complaint:: Pt c/o abscess to left buttock. She states this appeared this am. She denies drainage. COVID-19 Coronavirus risk:travel/contact w/high risk person: No Has patient experienced Coronavirus symptoms: No Nurses notes reviewed Nurses Notes Review: Yes Source History Provided: Patient Mode of arrival Mode of Arrival: Wheelchair Timing Onset of Chief Complaint: 10/13/21 PMH PMH Past Medical History: Yes Past Medical History: CHF, Diabetes and Hypertension Past Medical History Comment: Hodgkin's lymphoma Past Surgical History: Yes Surgical History: Ortho Surgery Family History History of Family Medical Conditions: Yes Family Medical History: Diabetes Mellitus and Hypertension Social History Does patient currently use any type of tobacco product: No Have you used tobacco products in the last 12 months: No Type of Tobacco Use: None Does any household member use tobacco: No Alcohol Use: None Do you use any recreational Drugs:: No Lives With: Family Lives Where: Home Travel Risk Coronavirus risk:travel/contact w/high risk person: No Has patient experienced Coronavirus symptoms: No Infectious screening In the last 2 months have you had wt loss of >10#?: NO Have you had fever, night sweats or hemotysis?: No Have you traveled outside the country in the last 6 months?: No Isolation: Standard ROS Review of Systems Constitutional: No Symptoms Reported Eyes: No Symptoms Reported ENTM: No Symptoms Reported Respiratoy: No Symptoms Reported Cardiovascular: No Symptoms Reported Gastrointestinal/Abdominal: No Symptoms Reported Genitourinary: No Symptoms Reported Neurological: No Symptoms Reported Musculoskeletal: No Symptoms Reported Integumentary: See HPI Hematologic/Lymphatic: No Symptoms Reported Psychiatric: No Symptoms Reported All Other Systems: Reviewed and Negative PE Vital Signs Vitals: Temperature 97.0 F Pulse Rate 113 Respiratory Rate 21 Blood Pressure [Left Arm] 89/51 Blood Pressure [Right Arm] 96/55 Blood Pressure 107/68 O2 Sat by Pulse Oximetry 100 General General Appearance: Alert and In No Apparent Distress Eyes Eye exam: PERRL and EOMI ENT ENT Exam: Mucous Membranes Moist Neck Neck Exam: Normal Inspection and Full ROM Respiratory Respiratory Exam: Normal Lung Sounds Bilat; negative Accessory Muscle Use or Respiratory Distress Cardiovascular Cardiovascular Exam: Regular Rate, Normal Rhythm, Tachycardia and Normal Heart Sounds Abdominal Exam Abdominal Exam: Normal Bowel Sounds and Soft; negative Tenderness Extremities Extremities Exam: Normal Inspection and Full ROM; negative Edema Skin Skin Exam: Other (+ 4 x 5 cm deep, tender indurated developing abscess of the left buttock, center slightly open, no drainage) MDM Differential Diagnosis Differential Diagnosis: Other (abscess, cellulitis) COURSE Treatment Treatment: 26 y/o female with developing abscess of the left buttock. Has underlying DM, currently on chemo for lymphoma. W/u initiated. Given IV fluids, IV analgesia. 1400 - WBC low at 1.7, probably due to her chemotherapy. Lactic acid a bit elevated at 2.5. Discussed with her covering attending, Dr Kumar. He will admit for IV antibiotics. Zoysn and vancomycin started in the ER. Will consult with surgery. ROR Labs Reviewed Laboratory Results Reviewed?: Yes Result Diagrams: 10/13/21 12:16 10/13/21 12:16 Laboratory: WBC 1.7 X10^3/uL (3.6-10.0) L* 10/13/21 12:16 RBC 2.70 X10^6/uL (3.5-5.4) L 10/13/21 12:16 Hgb 8.6 g/dL (12.0-16.0) L 10/13/21 12:16 Hct 24.8 % (36.0-47.0) L 10/13/21 12:16 MCV 91.9 fL (80.0-100.0) 10/13/21 12:16 MCH 31.7 pg (27.0-34.0) 10/13/21 12:16 MCHC 34.5 g/dL (33.0-35.0) 10/13/21 12:16 RDW 19.8 % (11.6-16.5) H 10/13/21 12:16 Plt Count 217 X10^3/uL (150.0-450.0) 10/13/21 12:16 Plt Count Comment Adequate (ADEQUATE) 10/13/21 12:16 MPV 9.0 fL (7.4-11.0) 10/13/21 12:16 Neut % (Auto) 56.1 % (42.0-75.0) 10/13/21 12:16 Lymph % (Auto) 33.9 % (21.0-51.0) 10/13/21 12:16 [place] % (Auto) 7.5 % (0.0-13.0) 10/13/21 12:16 Eos % (Auto) 0.2 % (0.9-2.9) L 10/13/21 12:16 Baso % (Auto) 2.3 % (0.2-1.0) H 10/13/21 12:16 Neut # (Auto) 1.0 x10^3/uL (2.2-4.8) L 10/13/21 12:16 Lymph # (Auto) 0.6 X10^3/uL (1.3-2.9) L 10/13/21 12:16 [place] # (Auto) 0.1 x10^3/uL (0.3-0.8) L 10/13/21 12:16 Eos # (Auto) 0.0 x10^3/uL (0.0-0.2) 10/13/21 12:16 Baso # (Auto) 0.0 X10^3/uL (0.0-0.1) 10/13/21 12:16 Absolute Nucleated RBC 0.7 /100WBC 10/13/21 12:16 Total Counted 100 10/13/21 12:16 Neutrophils % (Manual) 63 % (39-76) 10/13/21 12:16 Lymphocytes % (Manual) 30 % (13-43) 10/13/21 12:16 Monocytes % (Manual) 5 % (4-9) 10/13/21 12:16 Eosinophils % (Manual) 2 % (0-6) 10/13/21 12:16 Plt Morphology Comment Normal (NORMAL) 10/13/21 12:16 RBC Morphology Normal (NORMAL) 10/13/21 12:16 Sodium 136 mmol/L (136-145) 10/13/21 12:16 Corrected Sodium 138 mmol/L (136-145) 10/13/21 12:16 Potassium 3.9 mmol/L (3.5-5.1) 10/13/21 12:16 Chloride 100 mmol/L (98-107) 10/13/21 12:16 Carbon Dioxide 24.3 mmol/L (21-32) 10/13/21 12:16 BUN 4 mg/dL (7-18) L 10/13/21 12:16 Creatinine 0.44 mg/dL (0.55-1.02) L 10/13/21 12:16 Est GFR (MDRD) Af Amer > 60 (>60) 10/13/21 12:16 Est GFR (MDRD) Non-Af > 60 (>60) 10/13/21 12:16 Glucose 196 mg/dL (65-99) H 10/13/21 12:16 Lactic Acid 2.5 mmol/L (0.4-2.0) H 10/13/21 12:16 Calcium 8.7 mg/dL (8.5-10.1) 10/13/21 12:16 Corrected Calcium 9.8 mg/dL (8.5-10.1) 10/13/21 12:16 Total Bilirubin 0.50 mg/dL (0.2-1.0) 10/13/21 12:16 AST 74 Units/L (15-37) H 10/13/21 12:16 ALT 51 Units/L (12-78) 10/13/21 12:16 Alkaline Phosphatase 112 Units/L (46-116) 10/13/21 12:16 Total Protein 6.1 g/dL (6.4-8.2) L 10/13/21 12:16 Albumin 2.6 g/dL (3.4-5.0) L 10/13/21 12:16 Globulin 3.5 g/dL (2.5-4.5) 10/13/21 12:16 Albumin/Globulin Ratio 0.7 Ratio (1.1-2.1) L 10/13/21 12:16 Low WBCs, low RBCs. Opioid Opioid Risk Tool Age (Michael box if 16-45): Yes History of Preadolescent Sexual Abuse: No Total: 1 Total Score Risk Category: Low Risk Copyright: Prasanna SHAH predicting aberrant behaviors Discharge Plan Diagnosis Discharge Problem: Abscess of left buttock Discharge Plan Patient Disposition: 09 ADMITTED INPATIENT Condition: Stable Orders to Discharge Patient Discharge Orders: Transfer (Routine); Ordered 10/13/21 Ordered By: Yon Garner
[2021-10-13] MEDS ORDERED: NS 1,000 ML IV 1,000 ML IV ONE (11:58)
[2021-10-13] MEDS ORDERED: NS 1,000 ML IV 1,000 ML ONE (12:03)
[2021-10-13 12:38] LABS: BASOPHILS % (AUTO) 2.3 % (0.2-1.0); EOSINOPHILS % (AUTO) 0.2 % (0.9-2.9); HEMATOCRIT 24.8 % (36.0-47.0); HEMOGLOBIN 8.6 g/dL (12.0-16.0); LYMPHOCYTES # (AUTO) 0.6 X10^3/uL (1.3-2.9); LYMPHOCYTES % (AUTO) 33.9 % (21.0-51.0); MEAN CORPUSCULAR HEMOGLOBIN 31.7 pg (27.0-34.0); MEAN CORPUSCULAR HGB CONC 34.5 g/dL (33.0-35.0); MEAN CORPUSCULAR VOLUME 91.9 fL (80.0-100.0); MONOCYTES # (AUTO) 0.1 x10^3/uL (0.3-0.8); MONOCYTES % (AUTO) 7.5 % (0.0-13.0); NEUTROPHILS % (AUTO) 56.1 % (42.0-75.0); RED CELL DISTRIBUTION WIDTH 19.8 % (11.6-16.5)
[2021-10-13 12:42] LABS: ALANINE AMINOTRANSFERASE 51 Units/L (12-78); ALBUMIN 2.6 g/dL (3.4-5.0); ALKALINE PHOSPHATASE 112 Units/L (46-116); ASPARTATE AMINO TRANSFERASE 74 Units/L (15-37); BLOOD UREA NITROGEN 4 mg/dL (7-18); CALCIUM 8.7 mg/dL (8.5-10.1); CARBON DIOXIDE 24.3 mmol/L (21-32); CHLORIDE 100 mmol/L (98-107); COR CA(FOR HYPOALB) 9.8 mg/dL (8.5-10.1); COR NA(FOR HYPERGLY) 138 mmol/L (136-145); CREATININE 0.44 mg/dL (0.55-1.02); SODIUM 136 mmol/L (136-145); TOTAL PROTEIN 6.1 g/dL (6.4-8.2); eGFR NON BLACK RACES > 60 (>60)
[2021-10-13 12:44] LABS: LACTIC ACID 2.5 mmol/L (0.4-2.0)
[2021-10-13 12:54] LABS: WHITE BLOOD COUNT 1.7 X10^3/uL (3.6-10.0)
[2021-10-13 12:55] LABS: PLATELET MORPHOLOGY COMMENT NORMAL (NORMAL)
[2021-10-13] MEDS ORDERED: VANCOMYCIN IV *PREMIX 1 G/200 ML BAG 1 G/200 ML PIGGYBACK IV SCH (13:21)
[2021-10-13] MEDS ORDERED: VANCOMYCIN IV *PREMIX 1 G/200 ML BAG 1 G/200 ML PIGGYBACK IV ONE (13:33)
[2021-10-13] MEDS ORDERED: PHARMACY CONSULT - VANCOMYCIN XX SCH (14:00)
[2021-10-13] MEDS ORDERED: ZOSYN VIAL 3.375 GRAMS IV ONE (15:11)
[2021-10-13] MEDS ORDERED: NS 100 ML IV 100 ML ONE (15:11)
[2021-10-13] MEDS: ZOSYN VIAL 3.375 GRAMS 3.375 G in NS 100 ML IV 100 ML IV SCH ×2 (15:18→17:20)
[2021-10-13] MEDS ORDERED: ROXANOL ORAL SOLN 20MG UDC PO PRN (18:22)
[2021-10-13] MEDS ORDERED: DUONEB 0.5 MG/3 MG (3 mL) NEB PRN (21:41)
--- NOTE | 2021-10-13 21:56 | US ---
HISTORYabcess left buttocks, rednessSTUDYSOFT TISSUE ABDOMINAL SONOGRAMCOMPARISONNo relevant prior studies available.[id number] static images were reviewed.FINDINGSMild edema in the subcutaneous tissues of the left buttocks. No focal soft tissue collection identified which would be concerning for an abscess.IMPRESSIONEdema in the left buttocks is nonspecific but could be seen with cellulitis. No abscess identified.Electronically signed by: Magdi Sotomayor (Oct 13, 2021 21:54:41)
[2021-10-13] MEDS ORDERED: GLUCOPHAGE ONE (22:41)
[2021-10-13] MEDS: GLUCOPHAGE PO SCH (23:01)
[2021-10-13] MEDS: MORPHINE SULFATE INJ 4 MG IVP PRN (23:01)
[2021-10-13] MEDS: ELIQUIS PO SCH (23:04)
[2021-10-13] MEDS: VANCOMYCIN IV *PREMIX 1 G/200 ML BAG 1 G/200 ML PIGGYBACK IV SCH (23:05)
[2021-10-13] MEDS: COREG TAB 25 MG PO SCH (23:06)
[2021-10-13] MEDS: PEPCID TAB 40 MG PO SCH (23:06)
[2021-10-13] MEDS: NEURONTIN CAP 100 MG PO SCH (23:06)
[2021-10-13] MEDS: PREDNISONE TAB 20 MG PO SCH (23:06)
[2021-10-14] MEDS: ZOSYN VIAL 3.375 GRAMS 3.375 G in NS 100 ML IV 100 ML IV SCH ×4 (00:07→21:58)
[2021-10-14] MEDS: MORPHINE SULFATE INJ 4 MG IVP PRN ×2 (00:58→04:43)
[2021-10-14] MEDS ORDERED: NS 1,000 ML IV 1,000 ML ONE (02:45)
[2021-10-14] MEDS: NS 1,000 ML IV 1,000 ML IV SCH ×3 (02:50→19:27)
[2021-10-14] MEDS: VANCOMYCIN IV *PREMIX 1 G/200 ML BAG 1 G/200 ML PIGGYBACK IV SCH ×3 (05:07→21:00)
[2021-10-14] MEDS: NEURONTIN CAP 100 MG PO SCH ×3 (05:13→21:19)
[2021-10-14 06:22] LABS: ALANINE AMINOTRANSFERASE 41 Units/L (12-78); ALBUMIN 2.3 g/dL (3.4-5.0); ALKALINE PHOSPHATASE 101 Units/L (46-116); ASPARTATE AMINO TRANSFERASE 34 Units/L (15-37); BASOPHILS % (AUTO) 1.2 % (0.2-1.0); BLOOD UREA NITROGEN 4 mg/dL (7-18); CALCIUM 8.3 mg/dL (8.5-10.1); CARBON DIOXIDE 23.6 mmol/L (21-32); CHLORIDE 103 mmol/L (98-107); COR CA(FOR HYPOALB) 9.7 mg/dL (8.5-10.1); COR NA(FOR HYPERGLY) 138 mmol/L (136-145); CREATININE 0.35 mg/dL (0.55-1.02); EOSINOPHILS % (AUTO) 0.2 % (0.9-2.9); HEMATOCRIT 22.7 % (36.0-47.0); HEMOGLOBIN 7.9 g/dL (12.0-16.0); LYMPHOCYTES # (AUTO) 0.4 X10^3/uL (1.3-2.9); LYMPHOCYTES % (AUTO) 34.2 % (21.0-51.0); MEAN CORPUSCULAR HEMOGLOBIN 32.3 pg (27.0-34.0); MEAN CORPUSCULAR HGB CONC 34.7 g/dL (33.0-35.0); MEAN CORPUSCULAR VOLUME 93.1 fL (80.0-100.0); MEAN PLATELET VOLUME 8.6 fL (7.4-11.0); MONOCYTES # (AUTO) 0.1 x10^3/uL (0.3-0.8); MONOCYTES % (AUTO) 11.7 % (0.0-13.0); NEUTROPHILS # (AUTO) 0.6 x10^3/uL (2.2-4.8); NEUTROPHILS % (AUTO) 52.7 % (42.0-75.0); RED BLOOD COUNT 2.44 X10^6/uL (3.5-5.4); RED CELL DISTRIBUTION WIDTH 20.3 % (11.6-16.5); SODIUM 138 mmol/L (136-145); TOTAL PROTEIN 5.6 g/dL (6.4-8.2); eGFR NON BLACK RACES > 60 (>60)
[2021-10-14 06:23] LABS: WHITE BLOOD COUNT 1.2 X10^3/uL (3.6-10.0)
[2021-10-14 06:26] LABS: ANISOCYTOSIS 1+; PLATELET MORPHOLOGY COMMENT NORMAL (NORMAL); POIKILOCYTOSIS 1+; TEAR DROP CELLS PRESENT
--- NOTE | 2021-10-14 08:00 | DR.H&P ---
H&P History & Physical for Day of: H&P Date: 10/13/21 Chief Complaint Chief Complaint: left buttock pain Allergies Allergies Allergy/AdvReac Type Severity Reaction Status Date / Time No Known Drug Allergies Allergy Verified 10/13/21 18:22 History of Present Illness History of Present Illness: Pt is a 26 yo female presents with a history of Hodgkin's lymphoma(followed by oncology in [place]), Diabetes, Non-ischemic cardiomyopathy, Hypertension, presenting with painful, swollen area of her left buttocks. She reports that sx started as a blister last week and that recently she has had more pain in the area. Denies known trauma or discharge, fever, chills, nausea, vomiting. No prior h/o abscesses. Labs/imaging: Wbc 1.7, Hgb 8.6, Plt 217, Na 138, K 4.1, Creatinine 0.35, Glucose 112, LA 2.5, Blood cultures pending, CXR: 1.Right perihilar scarring post treatment. 2.No other evidence of active disease. Will admit patient for cellulitis and abscess of the left buttocks. Start on IV antibiotics: Vancomycin and Zosyn. Restart home medications. On examination no discharge noted but large area of tenderness. Will consult surgery for further evaluation. U/S has been ordered. Pt does continue to receive chemotherapy every two weeks, leukopenia likely due to treatments. Will continue to closely monitor and follow up labs/imaging. Past Medical History Past Medical History: CHF, Diabetes and Hypertension Additional Medical History: NON ISCHEMIC CARDIOMYOPATHY Past Surgical History Surgical History: Ortho Surgery Family History Family Medical History: Diabetes Mellitus and Hypertension Social History Does patient currently use any type of tobacco product: No Have you used tobacco products in the last 12 months: No Type of Tobacco Use: None Does any household member use tobacco: No Alcohol Use: None Drug Use: None Medications Home Medications: No Known Drug Allergies Allergy (Verified 10/13/21 18:22) CONTINUE taking the following medications allopurinol 300 mg tablet 300 mg PO QDAY 10/13/21 [History] apixaban 5 mg tablet (Eliquis) 10 mg PO BID 10/13/21 [History] carvedilol 25 mg tablet 25 mg PO BID 10/13/21 [History] diclofenac sodium 1 % topical gel 2 g topical BID 10/13/21 [History] diltiazem HCl 240 mg capsule,extended release 24 hr 240 mg PO QAM 10/13/21 [History] diphenoxylate-atropine 2.5 mg-0.025 mg tablet (Lomotil) 1 tab PO Q6HR PRN 10/13/21 [History] famotidine 20 mg tablet 20 mg PO QHS 10/13/21 [History] ferrous gluconate 324 mg (37.5 mg iron) tablet 324 mg PO QDAY 10/13/21 [History] furosemide 20 mg tablet (Lasix) 20 mg PO QDAY 10/13/21 [History] gabapentin 100 mg capsule 100 mg PO TID 10/13/21 [History] metformin 500 mg tablet 500 mg PO QDAY 10/13/21 [History] morphine 10 mg/5 mL oral solution 5 mg PO Q4H PRN 10/13/21 [History] nystatin 100,000 unit/gram topical cream 1 applic topical BID PRN 10/13/21 [History] ondansetron 8 mg disintegrating tablet 8 mg PO Q8H 10/13/21 [History] pantoprazole 40 mg tablet,delayed release 40 mg PO QDAY 10/13/21 [History] potassium chloride 20 mEq tablet,extended release 20 meq PO QDAY 10/13/21 [History] prednisone 10 mg tablet 40 mg PO QDAY 10/13/21 [History] prochlorperazine maleate 10 mg tablet 10 mg PO QID 10/13/21 [History] Labs Result Diagrams: 10/14/21 05:39 10/14/21 05:39 Labs: Laboratory WBC 1.2 X10^3/uL (3.6-10.0) L* 10/14/21 05:39 RBC 2.44 X10^6/uL (3.5-5.4) L 10/14/21 05:39 Hgb 7.9 g/dL (12.0-16.0) L 10/14/21 05:39 Hct 22.7 % (36.0-47.0) L 10/14/21 05:39 MCV 93.1 fL (80.0-100.0) 10/14/21 05:39 MCH 32.3 pg (27.0-34.0) 10/14/21 05:39 MCHC 34.7 g/dL (33.0-35.0) 10/14/21 05:39 RDW 20.3 % (11.6-16.5) H 10/14/21 05:39 Plt Count 241 X10^3/uL (150.0-450.0) 10/14/21 05:39 Plt Count Comment Adequate (ADEQUATE) 10/14/21 05:39 MPV 8.6 fL (7.4-11.0) 10/14/21 05:39 Neut % (Auto) 52.7 % (42.0-75.0) 10/14/21 05:39 Lymph % (Auto) 34.2 % (21.0-51.0) 10/14/21 05:39 [place] % (Auto) 11.7 % (0.0-13.0) 10/14/21 05:39 Eos % (Auto) 0.2 % (0.9-2.9) L 10/14/21 05:39 Baso % (Auto) 1.2 % (0.2-1.0) H 10/14/21 05:39 Neut # (Auto) 0.6 x10^3/uL (2.2-4.8) L 10/14/21 05:39 Lymph # (Auto) 0.4 X10^3/uL (1.3-2.9) L 10/14/21 05:39 [place] # (Auto) 0.1 x10^3/uL (0.3-0.8) L 10/14/21 05:39 Eos # (Auto) 0.0 x10^3/uL (0.0-0.2) 10/14/21 05:39 Baso # (Auto) 0.0 X10^3/uL (0.0-0.1) 10/14/21 05:39 Absolute Nucleated RBC 2.4 /100WBC 10/14/21 05:39 Total Counted 100 10/13/21 12:16 Neutrophils % (Manual) 63 % (39-76) 10/13/21 12:16 Lymphocytes % (Manual) 30 % (13-43) 10/13/21 12:16 Monocytes % (Manual) 5 % (4-9) 10/13/21 12:16 Eosinophils % (Manual) 2 % (0-6) 10/13/21 12:16 Plt Morphology Comment Normal (NORMAL) 10/14/21 05:39 RBC Morphology Abnormal (NORMAL) A 10/14/21 05:39 Poikilocytosis 1+ A 10/14/21 05:39 Anisocytosis 1+ A 10/14/21 05:39 Tear Drop Cells Present 10/14/21 05:39 Sodium 138 mmol/L (136-145) 10/14/21 05:39 Corrected Sodium 138 mmol/L (136-145) 10/14/21 05:39 Potassium 4.1 mmol/L (3.5-5.1) 10/14/21 05:39 Chloride 103 mmol/L (98-107) 10/14/21 05:39 Carbon Dioxide 23.6 mmol/L (21-32) 10/14/21 05:39 BUN 4 mg/dL (7-18) L 10/14/21 05:39 Creatinine 0.35 mg/dL (0.55-1.02) L 10/14/21 05:39 Est GFR (MDRD) Af Amer > 60 (>60) 10/14/21 05:39 Est GFR (MDRD) Non-Af > 60 (>60) 10/14/21 05:39 Glucose 112 mg/dL (65-99) H 10/14/21 05:39 POC Glucose (mg/dL) 111 mg/dL (65-99) H 10/14/21 05:37 Lactic Acid 2.5 mmol/L (0.4-2.0) H 10/13/21 12:16 Calcium 8.3 mg/dL (8.5-10.1) L 10/14/21 05:39 Corrected Calcium 9.7 mg/dL (8.5-10.1) 10/14/21 05:39 Total Bilirubin 0.50 mg/dL (0.2-1.0) 10/14/21 05:39 AST 34 Units/L (15-37) 10/14/21 05:39 ALT 41 Units/L (12-78) 10/14/21 05:39 Alkaline Phosphatase 101 Units/L (46-116) 10/14/21 05:39 Total Protein 5.6 g/dL (6.4-8.2) L 10/14/21 05:39 Albumin 2.3 g/dL (3.4-5.0) L 10/14/21 05:39 Globulin 3.3 g/dL (2.5-4.5) 10/14/21 05:39 Albumin/Globulin Ratio 0.7 Ratio (1.1-2.1) L 10/14/21 05:39 SARS-CoV-2 (PCR) Negative (NEGATIVE) 10/13/21 13:42 Review of Systems Constitutional: No Symptoms Reported Eyes: No Symptoms Reported ENT: No Symptoms Reported Respiratory: No Symptoms Reported Cardiovascular: No Symptoms Reported Gastrointestinal: No Symptoms Reported Genitourinary: No Symptoms Reported Musculoskeletal: No Symptoms Reported Skin: Rash and Other (left buttock pain) Neurological: No Symptoms Reported Physical Exam Vital Signs: Temperature 98.4 F Pulse Rate [Brachial] 104 Pulse Rate 107 Respiratory Rate 20 Blood Pressure [Left Arm] 110/51 Blood Pressure [Right Arm] 96/55 Blood Pressure 100/56 O2 Sat by Pulse Oximetry 97 Oriented: Normal Eyes: Normal Ear: Normal Nose: Normal Throat: Normal Respiratory: Clear Throughout Cardiovascular: Normal : Normal Auscultation: Bowel Sounds: Normal Palpation: Normal Tenderness: Normal Skin: Other (left buttock erythematous, warm, indurated, no discharge) Musculoskeletal: Normal Psychiatric: Normal Mood Description: Calm and Appropriate Affect: Normal Speech Pattern: Clear and Appropriate Assessment/Plan (1) Abscess of left buttock: Narrative Support Text: IV abx U/S ordered Status: Acute (2) HD (Hodgkin's lymphoma): Status: Acute (3) Leukopenia: Status: Acute (4) Cellulitis and abscess of buttock: Status: Acute Review H&P Reviewed: Yes Patient was examined?: Yes
--- NOTE | 2021-10-14 08:13 | PCM.PROG ---
Progress Note Progress Note for Day of Date of Exam: 10/14/21 Subjective Subjective: Pt is a 26 yo female presents with a history of Hodgkin's lymphoma (followed by oncology in [place]), Diabetes, Non-ischemic cardiomyopathy, Hypertension, admitted for cellulitis of left buttocks and leukopenia. This morning she is resting bed, no acute concerns overnight. Labs/imaging: Wbc 1.2, Hgb 7.9, Plt 241, Na 138, K 4.1, Creatinine 0.35, Glucose 112, Blood cultures pending, CXR: 1. Right perihilar scarring post treatment. 2.No other evidence of active disease. General surgery was consulted, ordered U/S that was obtained and revealed Edema in the left buttocks is nonspecific but could be seen with cellulitis. No abscess identified. She is currently on IV antibiotics: Vancomycin and Zosyn. Home medications were resumed. On examination no discharge noted but large area of tenderness. Otherwise, will continue with current plan of care. Will continue to closely monitor and follow up labs/imaging. Past Medical Family Social History Allergies: Allergies No Known Drug Allergies Allergy (Verified 10/13/21 18:22) Review of Systems ROS: No change since H&P Vital Signs and I&O's Vital Signs: Temperature 98.4 F Pulse Rate [Brachial] 104 Pulse Rate 107 Respiratory Rate 20 Blood Pressure [Left Arm] 110/51 Blood Pressure [Right Arm] 96/55 Blood Pressure 100/56 O2 Sat by Pulse Oximetry 97 Intake and Output: Intake & Output 10/11/21 10/12/21 10/13/21 10/14/21 23:59 23:59 23:59 23:59 Intake Total 0 / 0 1108 / 1108 Balance 0 / 0 1108 / 1108 Physical Exam Oriented: Normal Eyes: Normal Ear: Normal Nose: Normal Throat: Normal Cardiovascular: Normal : Normal Auscultation: Bowel Sounds: Normal Tenderness: Normal Skin: Other (left buttock erythematous, warm, indurated, no discharge) Musculoskeletal: Normal Psychiatric: Normal Mood Description: Calm and Appropriate Affect: Normal Speech Pattern: Clear and Appropriate Laboratory and Diagnostics Result Diagrams: 10/15/21 06:06 10/15/21 06:06 Labs: Laboratory WBC 1.2 X10^3/uL (3.6-10.0) L* 10/14/21 05:39 RBC 2.44 X10^6/uL (3.5-5.4) L 10/14/21 05:39 Hgb 7.9 g/dL (12.0-16.0) L 10/14/21 05:39 Hct 22.7 % (36.0-47.0) L 10/14/21 05:39 MCV 93.1 fL (80.0-100.0) 10/14/21 05:39 MCH 32.3 pg (27.0-34.0) 10/14/21 05:39 MCHC 34.7 g/dL (33.0-35.0) 10/14/21 05:39 RDW 20.3 % (11.6-16.5) H 10/14/21 05:39 Plt Count 241 X10^3/uL (150.0-450.0) 10/14/21 05:39 Plt Count Comment Adequate (ADEQUATE) 10/14/21 05:39 MPV 8.6 fL (7.4-11.0) 10/14/21 05:39 Neut % (Auto) 52.7 % (42.0-75.0) 10/14/21 05:39 Lymph % (Auto) 34.2 % (21.0-51.0) 10/14/21 05:39 Gem % (Auto) 11.7 % (0.0-13.0) 10/14/21 05:39 Eos % (Auto) 0.2 % (0.9-2.9) L 10/14/21 05:39 Baso % (Auto) 1.2 % (0.2-1.0) H 10/14/21 05:39 Neut # (Auto) 0.6 x10^3/uL (2.2-4.8) L 10/14/21 05:39 Lymph # (Auto) 0.4 X10^3/uL (1.3-2.9) L 10/14/21 05:39 Gem # (Auto) 0.1 x10^3/uL (0.3-0.8) L 10/14/21 05:39 Eos # (Auto) 0.0 x10^3/uL (0.0-0.2) 10/14/21 05:39 Baso # (Auto) 0.0 X10^3/uL (0.0-0.1) 10/14/21 05:39 Absolute Nucleated RBC 2.4 /100WBC 10/14/21 05:39 Total Counted 100 10/13/21 12:16 Neutrophils % (Manual) 63 % (39-76) 10/13/21 12:16 Lymphocytes % (Manual) 30 % (13-43) 10/13/21 12:16 Monocytes % (Manual) 5 % (4-9) 10/13/21 12:16 Eosinophils % (Manual) 2 % (0-6) 10/13/21 12:16 Plt Morphology Comment Normal (NORMAL) 10/14/21 05:39 RBC Morphology Abnormal (NORMAL) A 10/14/21 05:39 Poikilocytosis 1+ A 10/14/21 05:39 Anisocytosis 1+ A 10/14/21 05:39 Tear Drop Cells Present 10/14/21 05:39 Sodium 138 mmol/L (136-145) 10/14/21 05:39 Corrected Sodium 138 mmol/L (136-145) 10/14/21 05:39 Potassium 4.1 mmol/L (3.5-5.1) 10/14/21 05:39 Chloride 103 mmol/L (98-107) 10/14/21 05:39 Carbon Dioxide 23.6 mmol/L (21-32) 10/14/21 05:39 BUN 4 mg/dL (7-18) L 10/14/21 05:39 Creatinine 0.35 mg/dL (0.55-1.02) L 10/14/21 05:39 Est GFR (MDRD) Af Amer > 60 (>60) 10/14/21 05:39 Est GFR (MDRD) Non-Af > 60 (>60) 10/14/21 05:39 Glucose 112 mg/dL (65-99) H 10/14/21 05:39 POC Glucose (mg/dL) 111 mg/dL (65-99) H 10/14/21 05:37 Lactic Acid 2.5 mmol/L (0.4-2.0) H 10/13/21 12:16 Calcium 8.3 mg/dL (8.5-10.1) L 10/14/21 05:39 Corrected Calcium 9.7 mg/dL (8.5-10.1) 10/14/21 05:39 Total Bilirubin 0.50 mg/dL (0.2-1.0) 10/14/21 05:39 AST 34 Units/L (15-37) 10/14/21 05:39 ALT 41 Units/L (12-78) 10/14/21 05:39 Alkaline Phosphatase 101 Units/L (46-116) 10/14/21 05:39 Total Protein 5.6 g/dL (6.4-8.2) L 10/14/21 05:39 Albumin 2.3 g/dL (3.4-5.0) L 10/14/21 05:39 Globulin 3.3 g/dL (2.5-4.5) 10/14/21 05:39 Albumin/Globulin Ratio 0.7 Ratio (1.1-2.1) L 10/14/21 05:39 SARS-CoV-2 (PCR) Negative (NEGATIVE) 10/13/21 13:42 Plan (1) Cellulitis and abscess of buttock: Status: Acute (2) Abscess of left buttock: Status: Acute (3) HD (Hodgkin's lymphoma): Status: Acute (4) Leukopenia: Status: Acute
[2021-10-14] MEDS ORDERED: PROTONIX TAB 40 MG PO SCH (09:00)
[2021-10-14] MEDS ORDERED: GLUCOPHAGE ONE ×2 (10:25→19:39)
[2021-10-14] MEDS: PROTONIX TAB 40 MG PO SCH (10:28)
[2021-10-14] MEDS: LASIX PO SCH (10:28)
[2021-10-14] MEDS: COREG TAB 25 MG PO SCH ×2 (10:28→20:08)
[2021-10-14] MEDS: FERROUS GLUCONATE PO SCH (10:28)
[2021-10-14] MEDS: MICRO K EXTEN CAP 10 MEQ PO SCH (10:28)
[2021-10-14] MEDS: ZYLOPRIM PO SCH (10:28)
[2021-10-14] MEDS: CARDIZEM CD 240 MG 24-HR PO SCH (10:29)
[2021-10-14] MEDS: GLUCOPHAGE PO SCH ×2 (10:29→20:07)
[2021-10-14] MEDS: ELIQUIS PO SCH ×2 (10:29→20:07)
[2021-10-14] MEDS: DILAUDID INJ IVP PRN ×3 (11:30→21:31)
[2021-10-14] MEDS ORDERED: COMPAZINE PO PRN (18:34)
[2021-10-14] MEDS: PEPCID TAB 40 MG PO SCH (20:08)
[2021-10-14] MEDS: PREDNISONE TAB 20 MG PO SCH (20:08)
[2021-10-14] MEDS ORDERED: PHARMACY COMMENT IV NR (21:30)
[2021-10-15] MEDS: NS 1,000 ML IV 1,000 ML IV SCH ×4 (01:18→21:40)
[2021-10-15] MEDS: DILAUDID INJ IVP PRN ×5 (02:04→21:41)
[2021-10-15] MEDS: NEURONTIN CAP 100 MG PO SCH ×3 (05:26→21:43)
[2021-10-15] MEDS: ZOSYN VIAL 3.375 GRAMS 3.375 G in NS 100 ML IV 100 ML IV SCH (05:27)
[2021-10-15 06:39] LABS: BASOPHILS % (AUTO) 0.9 % (0.2-1.0); EOSINOPHILS % (AUTO) 0.1 % (0.9-2.9); HEMATOCRIT 24.6 % (36.0-47.0); HEMOGLOBIN 8.1 g/dL (12.0-16.0); LYMPHOCYTES # (AUTO) 0.9 X10^3/uL (1.3-2.9); LYMPHOCYTES % (AUTO) 49.2 % (21.0-51.0); MEAN CORPUSCULAR HEMOGLOBIN 31.2 pg (27.0-34.0); MEAN CORPUSCULAR HGB CONC 33.1 g/dL (33.0-35.0); MEAN CORPUSCULAR VOLUME 94.1 fL (80.0-100.0); MEAN PLATELET VOLUME 8.4 fL (7.4-11.0); MONOCYTES # (AUTO) 0.5 x10^3/uL (0.3-0.8); MONOCYTES % (AUTO) 26.8 % (0.0-13.0); NEUTROPHILS # (AUTO) 0.4 x10^3/uL (2.2-4.8); RED BLOOD COUNT 2.61 X10^6/uL (3.5-5.4); RED CELL DISTRIBUTION WIDTH 20.1 % (11.6-16.5)
[2021-10-15 06:40] LABS: WHITE BLOOD COUNT 1.8 X10^3/uL (3.6-10.0)
[2021-10-15 06:46] LABS: ALANINE AMINOTRANSFERASE 42 Units/L (12-78); ALBUMIN 2.4 g/dL (3.4-5.0); ALKALINE PHOSPHATASE 100 Units/L (46-116); ASPARTATE AMINO TRANSFERASE 33 Units/L (15-37); BLOOD UREA NITROGEN 2 mg/dL (7-18); CALCIUM 8.1 mg/dL (8.5-10.1); CARBON DIOXIDE 20.8 mmol/L (21-32); CHLORIDE 103 mmol/L (98-107); COR CA(FOR HYPOALB) 9.4 mg/dL (8.5-10.1); COR NA(FOR HYPERGLY) 140 mmol/L (136-145); CREATININE 0.42 mg/dL (0.55-1.02); SODIUM 139 mmol/L (136-145); TOTAL PROTEIN 5.9 g/dL (6.4-8.2); eGFR NON BLACK RACES > 60 (>60)
[2021-10-15 06:59] LABS: BAND NEUTROPHILS % 4 % (0-10); METAMYELOCYTES % 2
[2021-10-15 07:00] LABS: ANISOCYTOSIS 1+; PLATELET MORPHOLOGY COMMENT NORMAL (NORMAL)
[2021-10-15 07:01] LABS: POIKILOCYTOSIS 1+; TEAR DROP CELLS PRESENT
[2021-10-15 07:05] LABS: CREATININE 0.5 mg/dL (0.55-1.02); VANCOMYCIN,TROUGH 11.9 ug/mL (15-20)
[2021-10-15] MEDS ORDERED: GLUCOPHAGE ONE ×2 (08:13→19:16)
[2021-10-15] MEDS: PROTONIX TAB 40 MG PO SCH (08:23)
[2021-10-15] MEDS: LASIX PO SCH (08:23)
[2021-10-15] MEDS: MICRO K EXTEN CAP 10 MEQ PO SCH (08:23)
[2021-10-15] MEDS: ZYLOPRIM PO SCH (08:23)
[2021-10-15] MEDS: FERROUS GLUCONATE PO SCH (08:24)
[2021-10-15] MEDS: ELIQUIS PO SCH ×2 (08:24→21:42)
[2021-10-15] MEDS: COREG TAB 25 MG PO SCH ×2 (08:24→21:42)
[2021-10-15] MEDS: VANCOMYCIN IV *PREMIX 1 G/200 ML BAG 1 G/200 ML PIGGYBACK IV SCH ×3 (08:26→21:42)
[2021-10-15] MEDS: GLUCOPHAGE PO SCH ×2 (09:00→21:43)
--- NOTE | 2021-10-15 10:41 | PCM.PROG ---
Progress Note Progress Note for Day of Date of Exam: 10/15/21 Subjective Subjective: Pt is a 26 yo female presents with a history of Hodgkin's lymphoma (followed by oncology in [place]), Diabetes, Non-ischemic cardiomyopathy, Hypertension, admitted for cellulitis of left buttocks and leukopenia. This morning pt is in bed, reports some improvement in her symptoms. Labs/imaging: Wbc 1.8, Hgb 8.1, Plt 332, Na 139, K 3.0, Creatinine 0.50, Glucose 145, Blood cultures no growth to date. U/S that was obtained and revealed Edema in the left buttocks is nonspecific but could be seen with cellulitis. No abscess identified. She is currently on IV antibiotics: Vancomycin and Zosyn. Home medications were resumed. On examination no discharge noted but large area of tenderness. Continue with current treatment. Hypokalemia on labs, will replete per protocol. Will continue to closely monitor and follow up labs/imaging. Past Medical Family Social History Allergies: Allergies No Known Drug Allergies Allergy (Verified 10/13/21 18:22) Review of Systems ROS: No change since H&P Vital Signs and I&O's Vital Signs: Temperature 98 F Pulse Rate [Brachial] 120 Pulse Rate 107 Respiratory Rate 18 Blood Pressure [Left Arm] 115/62 Blood Pressure [Right Arm] 96/55 Blood Pressure 100/56 O2 Sat by Pulse Oximetry 98 Intake and Output: Intake & Output 10/12/21 10/13/21 10/14/21 10/15/21 23:59 23:59 23:59 23:59 Intake Total 0 / 0 3923 / 3923 1902 / 1902 Balance 0 / 0 3923 / 3923 190 / 1902 Physical Exam Oriented: Normal Eyes: Normal Ear: Normal Nose: Normal Throat: Normal Cardiovascular: Normal : Normal Auscultation: Bowel Sounds: Normal Tenderness: Normal Skin: Other (left buttock erythematous, warm, indurated, no discharge) Musculoskeletal: Normal Psychiatric: Normal Mood Description: Calm and Appropriate Affect: Normal Speech Pattern: Clear and Appropriate Laboratory and Diagnostics Result Diagrams: 10/16/21 06:02 10/16/21 06:02 Labs: 10/13/21 12:16 Blood Blood Culture - Preliminary 10/13/21 12:05 Blood Blood Culture - Preliminary Laboratory WBC 1.8 X10^3/uL (3.6-10.0) L* 10/15/21 06:06 RBC 2.61 X10^6/uL (3.5-5.4) L 10/15/21 06:06 Hgb 8.1 g/dL (12.0-16.0) L 10/15/21 06:06 Hct 24.6 % (36.0-47.0) L 10/15/21 06:06 MCV 94.1 fL (80.0-100.0) 10/15/21 06:06 MCH 31.2 pg (27.0-34.0) 10/15/21 06:06 MCHC 33.1 g/dL (33.0-35.0) 10/15/21 06:06 RDW 20.1 % (11.6-16.5) H 10/15/21 06:06 Plt Count 332 X10^3/uL (150.0-450.0) 10/15/21 06:06 Plt Count Comment Adequate (ADEQUATE) 10/15/21 06:06 MPV 8.4 fL (7.4-11.0) 10/15/21 06:06 Neut % (Auto) 23.0 % (42.0-75.0) L 10/15/21 06:06 Lymph % (Auto) 49.2 % (21.0-51.0) 10/15/21 06:06 [place] % (Auto) 26.8 % (0.0-13.0) H 10/15/21 06:06 Eos % (Auto) 0.1 % (0.9-2.9) L 10/15/21 06:06 Baso % (Auto) 0.9 % (0.2-1.0) 10/15/21 06:06 Neut # (Auto) 0.4 x10^3/uL (2.2-4.8) L 10/15/21 06:06 Lymph # (Auto) 0.9 X10^3/uL (1.3-2.9) L 10/15/21 06:06 [place] # (Auto) 0.5 x10^3/uL (0.3-0.8) 10/15/21 06:06 Eos # (Auto) 0.0 x10^3/uL (0.0-0.2) 10/15/21 06:06 Baso # (Auto) 0.0 X10^3/uL (0.0-0.1) 10/15/21 06:06 Absolute Nucleated RBC 1.6 /100WBC 10/15/21 06:06 Total Counted 50 10/15/21 06:06 Neutrophils % (Manual) 18 % (39-76) L 10/15/21 06:06 Band Neutrophils % 4 % (0-10) 10/15/21 06:06 Lymphocytes % (Manual) 56 % (13-43) H 10/15/21 06:06 Monocytes % (Manual) 20 % (4-9) H 10/15/21 06:06 Eosinophils % (Manual) 2 % (0-6) 10/13/21 12:16 Metamyelocytes % 2 10/15/21 06:06 Nucleated RBCs 2 10/15/21 06:06 Plt Morphology Comment Normal (NORMAL) 10/15/21 06:06 RBC Morphology Abnormal (NORMAL) A 10/15/21 06:06 Poikilocytosis 1+ A 10/15/21 06:06 Anisocytosis 1+ A 10/15/21 06:06 Tear Drop Cells Present 10/15/21 06:06 Sodium 139 mmol/L (136-145) 10/15/21 06:06 Corrected Sodium 140 mmol/L (136-145) 10/15/21 06:06 Potassium 3.0 mmol/L (3.5-5.1) L 10/15/21 06:06 Chloride 103 mmol/L (98-107) 10/15/21 06:06 Carbon Dioxide 20.8 mmol/L (21-32) L 10/15/21 06:06 BUN 2 mg/dL (7-18) L 10/15/21 06:06 Creatinine 0.42 mg/dL (0.55-1.02) L 10/15/21 06:06 Creatinine 0.50 mg/dL (0.55-1.02) L 10/15/21 06:06 Est GFR (MDRD) Af Amer > 60 (>60) 10/15/21 06:06 Est GFR (MDRD) Non-Af > 60 (>60) 10/15/21 06:06 Glucose 145 mg/dL (65-99) H 10/15/21 06:06 POC Glucose (mg/dL) 137 mg/dL (65-99) H 10/15/21 05:50 Lactic Acid 2.5 mmol/L (0.4-2.0) H 10/13/21 12:16 Calcium 8.1 mg/dL (8.5-10.1) L 10/15/21 06:06 Corrected Calcium 9.4 mg/dL (8.5-10.1) 10/15/21 06:06 Total Bilirubin 0.30 mg/dL (0.2-1.0) 10/15/21 06:06 AST 33 Units/L (15-37) 10/15/21 06:06 ALT 42 Units/L (12-78) 10/15/21 06:06 Alkaline Phosphatase 100 Units/L (46-116) 10/15/21 06:06 Total Protein 5.9 g/dL (6.4-8.2) L 10/15/21 06:06 Albumin 2.4 g/dL (3.4-5.0) L 10/15/21 06:06 Globulin 3.5 g/dL (2.5-4.5) 10/15/21 06:06 Albumin/Globulin Ratio 0.7 Ratio (1.1-2.1) L 10/15/21 06:06 Vancomycin Trough 11.9 ug/mL (15-20) L 10/15/21 06:06 SARS-CoV-2 (PCR) Negative (NEGATIVE) 10/13/21 13:42 Plan (1) Cellulitis and abscess of buttock: Status: Acute Plan: IV vancomycin and Zosyn (2) Abscess of left buttock: Status: Acute (3) HD (Hodgkin's lymphoma): Status: Acute (4) Leukopenia: Status: Acute (5) Hypokalemia: Status: Acute Plan: replete per protocol
[2021-10-15] MEDS: CARDIZEM CD 240 MG 24-HR PO SCH (11:25)
[2021-10-15] MEDS: PREDNISONE TAB 20 MG PO SCH ×2 (21:43→21:44)
[2021-10-15] MEDS: PEPCID TAB 40 MG PO SCH (21:50)
[2021-10-16] MEDS: DILAUDID INJ IVP PRN ×2 (00:54→04:19)
[2021-10-16] MEDS: VANCOMYCIN IV *PREMIX 1 G/200 ML BAG 1 G/200 ML PIGGYBACK IV SCH (05:43)
[2021-10-16] MEDS: NEURONTIN CAP 100 MG PO SCH (05:43)
[2021-10-16] MEDS: NS 1,000 ML IV 1,000 ML IV SCH (05:48)
[2021-10-16 06:19] LABS: BASOPHILS % (AUTO) 0.5 % (0.2-1.0); HEMATOCRIT 22.8 % (36.0-47.0); HEMOGLOBIN 7.8 g/dL (12.0-16.0); LYMPHOCYTES # (AUTO) 0.6 X10^3/uL (1.3-2.9); LYMPHOCYTES % (AUTO) 48.7 % (21.0-51.0); MEAN CORPUSCULAR HEMOGLOBIN 31.9 pg (27.0-34.0); MEAN CORPUSCULAR HGB CONC 34.4 g/dL (33.0-35.0); MEAN CORPUSCULAR VOLUME 92.8 fL (80.0-100.0); MEAN PLATELET VOLUME 7.5 fL (7.4-11.0); MONOCYTES # (AUTO) 0.5 x10^3/uL (0.3-0.8); MONOCYTES % (AUTO) 39.2 % (0.0-13.0); NEUTROPHILS # (AUTO) 0.2 x10^3/uL (2.2-4.8); NEUTROPHILS % (AUTO) 11.6 % (42.0-75.0); RED BLOOD COUNT 2.46 X10^6/uL (3.5-5.4); RED CELL DISTRIBUTION WIDTH 20.4 % (11.6-16.5)
[2021-10-16 06:40] LABS: WHITE BLOOD COUNT 1.3 X10^3/uL (3.6-10.0)
[2021-10-16 06:43] LABS: ALANINE AMINOTRANSFERASE 35 Units/L (12-78); ALBUMIN 2.2 g/dL (3.4-5.0); ALKALINE PHOSPHATASE 85 Units/L (46-116); ASPARTATE AMINO TRANSFERASE 18 Units/L (15-37); BLOOD UREA NITROGEN 1 mg/dL (7-18); CALCIUM 7.2 mg/dL (8.5-10.1); CARBON DIOXIDE 22.7 mmol/L (21-32); CHLORIDE 107 mmol/L (98-107); COR CA(FOR HYPOALB) 8.6 mg/dL (8.5-10.1); COR NA(FOR HYPERGLY) 142 mmol/L (136-145); CREATININE 0.32 mg/dL (0.55-1.02); SODIUM 142 mmol/L (136-145); TOTAL PROTEIN 5.2 g/dL (6.4-8.2); eGFR NON BLACK RACES > 60 (>60)
[2021-10-16 07:15] LABS: ANISOCYTOSIS 1+; PLATELET MORPHOLOGY COMMENT NORMAL (NORMAL); POIKILOCYTOSIS 1+; TEAR DROP CELLS PRESENT
[2021-10-16] MEDS ORDERED: POTASSIUM CHL 40 MEQ/NS 0.45% 500 ML IV PRN (07:58)
[2021-10-16] MEDS ORDERED: POTASSIUM CHL 60 MEQ/NS 0.45% 500 ML IV PRN (07:58)
[2021-10-16] MEDS ORDERED: K-RIDER 10 MEQ/NS 100 ML 10 MEQ/100 ML BAG IV PRN (07:58)
[2021-10-16] MEDS ORDERED: MAGNESIUM SULFATE 1 GRAM/100 mL PREMIX 1 G/100 ML BAG IV PRN (07:58)
[2021-10-16] MEDS ORDERED: K-DUR TAB 20 MEQ PO PRN (07:58)
[2021-10-16] MEDS ORDERED: MICRO K EXTEN CAP 10 MEQ PO PRN (07:58)
[2021-10-16] MEDS ORDERED: POTASSIUM CHLORIDE LIQ 20 MEQ UDC PO PRN (07:58)
[2021-10-16] MEDS ORDERED: KLOR-CON PO PRN (07:58)
[2021-10-16] MEDS ORDERED: GLUCOPHAGE ONE (08:09)
[2021-10-16] MEDS: PROTONIX TAB 40 MG PO SCH (08:19)
[2021-10-16] MEDS: GLUCOPHAGE PO SCH (08:19)
[2021-10-16] MEDS: CARDIZEM CD 240 MG 24-HR PO SCH (08:19)
[2021-10-16] MEDS: LASIX PO SCH (08:20)
[2021-10-16] MEDS: ZYLOPRIM PO SCH (08:20)
[2021-10-16] MEDS: MICRO K EXTEN CAP 10 MEQ PO SCH (08:20)
[2021-10-16] MEDS: FERROUS GLUCONATE PO SCH (08:20)
[2021-10-16] MEDS: ELIQUIS PO SCH (08:20)
[2021-10-16] MEDS: COREG TAB 25 MG PO SCH (08:22)
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
[2021-10-16] MEDS ORDERED: MAG-OX TAB PO STA (10:22)
[2021-10-16 10:28] VITALS: BP 118/59
== END 2021-10-16 10:46 | disposition home or self-care (01) ==
LOC: ER 11:07 → OBS 11:07 → U 20:30 → MED/SURG 23:01
PROVIDERS: ADMIT Family Medicine; ATTEND Family Medicine
DX: C81.90 Hodgkin lymphoma, unspecified, unspecified site; E11.65 Type 2 diabetes mellitus with hyperglycemia; I10 Essential (primary) hypertension; E87.6 Hypokalemia; L02.31 Cutaneous abscess of buttock; R26.89 Other abnormalities of gait and mobility; Z92.21 Personal history of antineoplastic chemotherapy; L03.317 Cellulitis of buttock; Z20.822 Contact with and (suspected) exposure to COVID-19

== ENCOUNTER 2021-10-27 13:18 | Observation (INO) ==
--- NOTE | 2021-10-27 14:02 | DR.DIZZY ---
HPI Time seen Time Seen by Provider: 10/27/21 14:02 PCP Primary Care Physician: JENNIFER COLLINS Complaint Chief Complaint Doctor Comments: 26 y/o female presents for evaluation. Pt c/o being lightheaded, with low BP this am. BP was 70s/50s. Did not take her BP med today. Denies nausea, vomiting, bowel or bladder issues. No URI symptoms. + worse with standing, better with laying down. Chief Complaint:: LIGHT HEADED; LOW BP COVID-19 Coronavirus risk:travel/contact w/high risk person: No Has patient experienced Coronavirus symptoms: No Nurses Notes Reviewed Nurses Notes Review: Yes Source History Provided: Patient Mode of Arrival Mode of Arrival: Wheelchair Timing Onset of Chief Complaint: 10/27/21 Context Stroke Symptoms: None PMH PMH Past Medical History: Yes Past Medical History: CHF, Diabetes and Hypertension Past Medical History Comment: sarcoidiosis, lymphoma Past Surgical History: Yes Surgical History: Ortho Surgery Family History History of Family Medical Conditions: Yes Family Medical History: Diabetes Mellitus and Hypertension Social History Does patient currently use any type of tobacco product: No Have you used tobacco products in the last 12 months: No Type of Tobacco Use: None Does any household member use tobacco: No Alcohol Use: None Do you use any recreational Drugs:: No Lives With: Family Lives Where: Home Travel Risk Coronavirus risk:travel/contact w/high risk person: No Has patient experienced Coronavirus symptoms: No Infectious screening In the last 2 months have you had wt loss of >10#?: NO Have you had fever, night sweats or hemotysis?: No Have you traveled outside the country in the last 6 months?: No Isolation: Standard ROS Review of Systems Constitutional: Weakness Eyes: No Symptoms Reported ENTM: No Symptoms Reported Respiratoy: No Symptoms Reported Cardiovascular: No Symptoms Reported Gastrointestinal/Abdominal: No Symptoms Reported Genitourinary: No Symptoms Reported Neurological: Weakness Musculoskeletal: No Symptoms Reported Integumentary: No Symptoms Reported Hematologic/Lymphatic: No Symptoms Reported Psychiatric: No Symptoms Reported All Other Systems: Reviewed and Negative PE Vital Signs Vitals: Temperature 98.9 F Pulse Rate 124 Respiratory Rate 20 Blood Pressure [Left Arm] 118/59 Blood Pressure [Right Arm] 96/55 Blood Pressure 92/55 O2 Sat by Pulse Oximetry 100 General General Appearance: Alert and In No Apparent Distress Eyes Eye exam: PERRL and EOMI ENT ENT Exam: Normal Oropharynx and Mucous Membranes Moist Respiratory Respiratory Exam: Normal Lung Sounds Bilat; negative Accessory Muscle Use or Respiratory Distress Cardiovascular Cardiovascular Exam: Regular Rate, Normal Rhythm, Tachycardia and Normal Heart Sounds Abdominal Exam Abdominal Exam: Normal Inspection, Normal Bowel Sounds and Soft; negative Tenderness Extremeties Extremities Exam: Normal Inspection and Full ROM; negative Edema Back Back Exam: Normal Inspection; negative Tenderness Neurologic Neurological Exam: Alert, Oriented X3 and CN II-XII Intact; negative Motor Sensory Deficit Psychiatric Psychiatric Exam: Normal Affect Skin Skin Exam: Warm and Dry COURSE Treatment Treatment: 26 y/o female, being treated for lymphoma, presents with low BP and dizziness this am. No specific complaints otherwise. W/u initiated. Given IV fluids. 1630 - labs show worsening anemia, Hgb 7.6, with low bicarb at 21, elevated lactic acid 0f 2.6. Discussed with her covering attending, Dr Kumar. Will plan on transfusing a unit of PRBCs, continuing IV fluids, and will admit for observation. ROR Labs Reviewed Laboratory Results Reviewed?: Yes Result Diagrams: 10/27/21 14:32 10/27/21 14:32 Laboratory: WBC 9.1 X10^3/uL (3.6-10.0) 10/27/21 14:32 RBC 2.36 X10^6/uL (3.5-5.4) L 10/27/21 14:32 Hgb 7.6 g/dL (12.0-16.0) L 10/27/21 14:32 Hct 23.1 % (36.0-47.0) L 10/27/21 14:32 MCV 97.7 fL (80.0-100.0) 10/27/21 14:32 MCH 32.3 pg (27.0-34.0) 10/27/21 14:32 MCHC 33.1 g/dL (33.0-35.0) 10/27/21 14:32 RDW 23.5 % (11.6-16.5) H 10/27/21 14:32 Plt Count 289 X10^3/uL (150.0-450.0) 10/27/21 14:32 Plt Count Comment Adequate (ADEQUATE) 10/27/21 14:32 MPV 9.0 fL (7.4-11.0) 10/27/21 14:32 Neut % (Auto) 81.8 % (42.0-75.0) H 10/27/21 14:32 Lymph % (Auto) 13.5 % (21.0-51.0) L 10/27/21 14:32 [place] % (Auto) 4.2 % (0.0-13.0) 10/27/21 14:32 Eos % (Auto) 0.0 % (0.9-2.9) L 10/27/21 14:32 Baso % (Auto) 0.5 % (0.2-1.0) 10/27/21 14:32 Neut # (Auto) 7.4 x10^3/uL (2.2-4.8) H 10/27/21 14:32 Lymph # (Auto) 1.2 X10^3/uL (1.3-2.9) L 10/27/21 14:32 [place] # (Auto) 0.4 x10^3/uL (0.3-0.8) 10/27/21 14:32 Eos # (Auto) 0.0 x10^3/uL (0.0-0.2) 10/27/21 14:32 Baso # (Auto) 0.0 X10^3/uL (0.0-0.1) 10/27/21 14:32 Absolute Nucleated RBC 0.3 /100WBC 10/27/21 14:32 Plt Morphology Comment Normal (NORMAL) 10/27/21 14:32 RBC Morphology Abnormal (NORMAL) A 10/27/21 14:32 Hypochromasia 1+ A 10/27/21 14:32 Poikilocytosis 1+ A 10/27/21 14:32 Anisocytosis 2+ A 10/27/21 14:32 Tear Drop Cells Present 10/27/21 14:32 Sodium 137 mmol/L (136-145) 10/27/21 14:32 Corrected Sodium 139 mmol/L (136-145) 10/27/21 14:32 Potassium 3.8 mmol/L (3.5-5.1) 10/27/21 14:32 Chloride 104 mmol/L (98-107) 10/27/21 14:32 Carbon Dioxide 20.9 mmol/L (21-32) L 10/27/21 14:32 BUN 5 mg/dL (7-18) L 10/27/21 14:32 Creatinine 0.50 mg/dL (0.55-1.02) L 10/27/21 14:32 Est GFR (MDRD) Af Amer > 60 (>60) 10/27/21 14:32 Est GFR (MDRD) Non-Af > 60 (>60) 10/27/21 14:32 Glucose 163 mg/dL (65-99) H 10/27/21 14:32 Lactic Acid 2.6 mmol/L (0.4-2.0) H 10/27/21 14:32 Calcium 7.6 mg/dL (8.5-10.1) L 10/27/21 14:32 Corrected Calcium 8.7 mg/dL (8.5-10.1) 10/27/21 14:32 Total Bilirubin 0.30 mg/dL (0.2-1.0) 10/27/21 14:32 AST 23 Units/L (15-37) 10/27/21 14:32 ALT 24 Units/L (12-78) 10/27/21 14:32 Alkaline Phosphatase 82 Units/L (46-116) 10/27/21 14:32 Creatine Kinase 37 Units/L (26-192) 10/27/21 14:32 Troponin I High Sens 46.9 ng/L (4.0-60.0) 10/27/21 14:32 Total Protein 5.3 g/dL (6.4-8.2) L 10/27/21 14:32 Albumin 2.6 g/dL (3.4-5.0) L 10/27/21 14:32 Globulin 2.7 g/dL (2.5-4.5) 10/27/21 14:32 Albumin/Globulin Ratio 1.0 Ratio (1.1-2.1) L 10/27/21 14:32 Specimen Type Clean catch urine 10/27/21 15:46 Urine Color Yellow (YELLOW) 10/27/21 15:46 Urine Appearance Clear (CLEAR) 10/27/21 15:46 Urine pH 7.0 (5.0 - 8.0) 10/27/21 15:46 Ur Specific [place] 1.010 (1.000-1.030) 10/27/21 15:46 Urine Protein 1+ (NEGATIVE) 10/27/21 15:46 Urine Glucose (UA) Negative (NEGATIVE) 10/27/21 15:46 Urine Ketones Negative (NEGATIVE) 10/27/21 15:46 Urine Blood Negative (NEGATIVE) 10/27/21 15:46 Urine Nitrite Negative (NEGATIVE) 10/27/21 15:46 Urine Bilirubin Negative (NEGATIVE) 10/27/21 15:46 Urine Urobilinogen Normal (NORMAL) 10/27/21 15:46 Ur Leukocyte Esterase 1+ (NEGATIVE) 10/27/21 15:46 Urine RBC 3-5 /HPF (0-3) A 10/27/21 15:46 Urine WBC 3-5 /HPF (0-5) 10/27/21 15:46 Ur Squamous Epith Cells Few /HPF (NEGATIVE) 10/27/21 15:46 Urine Bacteria Trace /HPF (NEGATIVE) 10/27/21 15:46 Urine Mucus Rare /HPF (NEGATIVE) 10/27/21 15:46 Urine Yeast Few /HPF (NEGATIVE) 10/27/21 15:46 Ur Culture Indicated? No/not indicated 10/27/21 15:46 SARS-CoV-2 (PCR) Negative (NEGATIVE) 10/27/21 16:34 Influenza Type A (PCR) Negative (NEGATIVE) 10/27/21 16:34 Influenza Type B (PCR) Negative (NEGATIVE) 10/27/21 16:34 RSV (PCR) Negative (NEGATIVE) 10/27/21 16:34 Hgb 7.6 Opioid Opioid Risk Tool Age (Michael box if 16-45): No History of Preadolescent Sexual Abuse: No Total: 0 Total Score Risk Category: Low Risk Copyright: Prasanna SHAH predicting aberrant behaviors Discharge Plan Diagnosis Discharge Problem: Anemia, Hypotension Discharge Plan Patient Disposition: 09 ADMITTED INPATIENT Condition: Stable
[2021-10-27] MEDS ORDERED: NS 1,000 ML IV 1,000 ML ONE (14:31)
[2021-10-27] MEDS: NS 1,000 ML IV 1,000 ML IV ONE ×2 (14:38→14:39)
[2021-10-27 14:51] LABS: BASOPHILS % (AUTO) 0.5 % (0.2-1.0); HEMATOCRIT 23.1 % (36.0-47.0); HEMOGLOBIN 7.6 g/dL (12.0-16.0); LYMPHOCYTES # (AUTO) 1.2 X10^3/uL (1.3-2.9); LYMPHOCYTES % (AUTO) 13.5 % (21.0-51.0); MEAN CORPUSCULAR HEMOGLOBIN 32.3 pg (27.0-34.0); MEAN CORPUSCULAR HGB CONC 33.1 g/dL (33.0-35.0); MEAN CORPUSCULAR VOLUME 97.7 fL (80.0-100.0); MONOCYTES # (AUTO) 0.4 x10^3/uL (0.3-0.8); MONOCYTES % (AUTO) 4.2 % (0.0-13.0); NEUTROPHILS # (AUTO) 7.4 x10^3/uL (2.2-4.8); NEUTROPHILS % (AUTO) 81.8 % (42.0-75.0); RED BLOOD COUNT 2.36 X10^6/uL (3.5-5.4); RED CELL DISTRIBUTION WIDTH 23.5 % (11.6-16.5); WHITE BLOOD COUNT 9.1 X10^3/uL (3.6-10.0)
[2021-10-27 15:06] LABS: ALANINE AMINOTRANSFERASE 24 Units/L (12-78); ALBUMIN 2.6 g/dL (3.4-5.0); ALKALINE PHOSPHATASE 82 Units/L (46-116); ASPARTATE AMINO TRANSFERASE 23 Units/L (15-37); BLOOD UREA NITROGEN 5 mg/dL (7-18); CALCIUM 7.6 mg/dL (8.5-10.1); CARBON DIOXIDE 20.9 mmol/L (21-32); CHLORIDE 104 mmol/L (98-107); COR CA(FOR HYPOALB) 8.7 mg/dL (8.5-10.1); COR NA(FOR HYPERGLY) 139 mmol/L (136-145); CREATINE KINASE 37 Units/L (26-192); SODIUM 137 mmol/L (136-145); TOTAL PROTEIN 5.3 g/dL (6.4-8.2); eGFR NON BLACK RACES > 60 (>60)
[2021-10-27 15:20] LABS: LACTIC ACID 2.6 mmol/L (0.4-2.0)
[2021-10-27 15:29] LABS: PLATELET MORPHOLOGY COMMENT NORMAL (NORMAL)
[2021-10-27 15:30] LABS: HYPOCHROMASIA 1+
[2021-10-27 15:31] LABS: ANISOCYTOSIS 2+; POIKILOCYTOSIS 1+; TEAR DROP CELLS PRESENT
[2021-10-27 15:57] LABS: BILIRUBIN,URINE NEGATIVE (NEGATIVE); BLOOD/HEMOGLOBIN,URINE NEGATIVE (NEGATIVE); GLUCOSE, URINE NEGATIVE (NEGATIVE); KETONES,URINE NEGATIVE (NEGATIVE); LEUKOCYTE ESTERASE ,URINE 1+ (NEGATIVE); NITRITES,URINE NEGATIVE (NEGATIVE); PROTEIN,URINE 1+ (NEGATIVE); UROBILINOGEN,URINE NORMAL (NORMAL)
[2021-10-27 16:04] LABS: APPEARANCE,URINE CLEAR (CLEAR); COLOR,URINE YELLOW (YELLOW)
[2021-10-27 16:05] LABS: BACTERIA,URINE TRACE /HPF (NEGATIVE); SQUAMOUS EPITHELIAL CELL,UR FEW /HPF (NEGATIVE); YEAST,URINE FEW /HPF (NEGATIVE)
[2021-10-27] MEDS ORDERED: GLUCOPHAGE ONE (17:35)
[2021-10-27] MEDS: K-DUR TAB 20 MEQ PO SCH (17:49)
[2021-10-27] MEDS: D5 1/2 NS 1,000 ML 1,000 ML IV SCH (17:49)
[2021-10-27] MEDS: FERROUS GLUCONATE PO SCH (17:49)
[2021-10-27] MEDS: PROTONIX TAB 40 MG PO SCH (17:50)
[2021-10-27] MEDS: GLUCOPHAGE PO SCH (17:50)
[2021-10-27] MEDS: ZOFRAN TAB 4 MG PO SCH (18:30)
[2021-10-27] MEDS: TYLENOL 325 MG TAB PO PRN (19:28)
[2021-10-27] MEDS: ELIQUIS PO SCH (20:49)
[2021-10-27] MEDS: VOLTAREN 1 % GEL MULTI DOSE TUBE TOP SCH (20:50)
[2021-10-27] MEDS ORDERED: PEPCID TAB 20 MG PO PRN (21:00)
[2021-10-27] MEDS: NEURONTIN CAP 100 MG PO SCH (21:19)
[2021-10-27] MEDS ORDERED: NS 100 ML IV 100 ML ONE (21:47)
[2021-10-27] MEDS: NORCO 5/325 MG TAB PO PRN (22:11)
[2021-10-28] MEDS: D5 1/2 NS 1,000 ML 1,000 ML IV SCH ×5 (01:25→23:10)
[2021-10-28] MEDS: ZOFRAN TAB 4 MG PO SCH ×3 (02:30→17:44)
[2021-10-28] MEDS: NORCO 5/325 MG TAB PO PRN ×4 (05:33→17:38)
[2021-10-28] MEDS: NEURONTIN CAP 100 MG PO SCH ×3 (05:33→21:13)
[2021-10-28 06:37] LABS: BASOPHILS % (AUTO) 0.2 % (0.2-1.0); EOSINOPHILS # (AUTO) 0.1 x10^3/uL (0.0-0.2); EOSINOPHILS % (AUTO) 1.6 % (0.9-2.9); HEMATOCRIT 27.3 % (36.0-47.0); HEMOGLOBIN 9.4 g/dL (12.0-16.0); LYMPHOCYTES # (AUTO) 1.9 X10^3/uL (1.3-2.9); LYMPHOCYTES % (AUTO) 27.5 % (21.0-51.0); MEAN CORPUSCULAR HEMOGLOBIN 32.5 pg (27.0-34.0); MEAN CORPUSCULAR HGB CONC 34.5 g/dL (33.0-35.0); MEAN CORPUSCULAR VOLUME 94.1 fL (80.0-100.0); MEAN PLATELET VOLUME 8.8 fL (7.4-11.0); MONOCYTES # (AUTO) 1.7 x10^3/uL (0.3-0.8); MONOCYTES % (AUTO) 23.7 % (0.0-13.0); NEUTROPHILS # (AUTO) 3.3 x10^3/uL (2.2-4.8); RED BLOOD COUNT 2.91 X10^6/uL (3.5-5.4); RED CELL DISTRIBUTION WIDTH 21.2 % (11.6-16.5)
[2021-10-28 06:47] LABS: ALANINE AMINOTRANSFERASE 19 Units/L (12-78); ALBUMIN 2.3 g/dL (3.4-5.0); ALKALINE PHOSPHATASE 73 Units/L (46-116); ASPARTATE AMINO TRANSFERASE 19 Units/L (15-37); BLOOD UREA NITROGEN 2 mg/dL (7-18); CALCIUM 7.6 mg/dL (8.5-10.1); CARBON DIOXIDE 23.5 mmol/L (21-32); CHLORIDE 108 mmol/L (98-107); CREATININE 0.48 mg/dL (0.55-1.02); SODIUM 142 mmol/L (136-145); TOTAL PROTEIN 4.7 g/dL (6.4-8.2); eGFR NON BLACK RACES > 60 (>60)
[2021-10-28 07:38] LABS: BAND NEUTROPHILS % 6 % (0-10); HYPOCHROMASIA 1+; PLATELET MORPHOLOGY COMMENT NORMAL (NORMAL); POIKILOCYTOSIS 1+; TEAR DROP CELLS PRESENT
[2021-10-28] MEDS ORDERED: GLUCOPHAGE ONE (10:15)
[2021-10-28] MEDS ORDERED: MICRO K EXTEN CAP 10 MEQ PO PRN (10:18)
[2021-10-28] MEDS ORDERED: POTASSIUM CHL 40 MEQ/NS 0.45% 500 ML IV PRN (10:18)
[2021-10-28] MEDS ORDERED: KLOR-CON PO PRN (10:18)
[2021-10-28] MEDS ORDERED: POTASSIUM CHL 60 MEQ/NS 0.45% 500 ML IV PRN (10:18)
[2021-10-28] MEDS ORDERED: POTASSIUM CHLORIDE LIQ 20 MEQ UDC PO PRN (10:18)
[2021-10-28] MEDS ORDERED: K-RIDER 10 MEQ/NS 100 ML 10 MEQ/100 ML BAG IV PRN (10:18)
[2021-10-28] MEDS: ELIQUIS PO SCH ×2 (10:20→20:34)
[2021-10-28] MEDS: GLUCOPHAGE PO SCH (10:21)
[2021-10-28] MEDS: FERROUS GLUCONATE PO SCH (10:21)
[2021-10-28] MEDS: K-DUR TAB 20 MEQ PO SCH (10:22)
[2021-10-28] MEDS: PROTONIX TAB 40 MG PO SCH (10:22)
[2021-10-28] MEDS: VOLTAREN 1 % GEL MULTI DOSE TUBE TOP SCH ×2 (10:22→20:35)
[2021-10-28] MEDS: K-DUR TAB 20 MEQ PO PRN ×2 (10:50→14:23)
[2021-10-28] MEDS: MAGNESIUM SULFATE 1 GRAM/100 mL PREMIX 1 G/100 ML BAG IV PRN ×4 (11:33→15:52)
[2021-10-28 14:40] VITALS: BMI 22.1
--- NOTE | 2021-10-28 15:05 | DR.H&P ---
H&P History & Physical for Day of: H&P Date: 10/28/21 Chief Complaint Chief Complaint: Hypotension Symptomatic anemia Allergies Allergies Allergy/AdvReac Type Severity Reaction Status Date / Time No Known Drug Allergies Allergy Verified 10/13/21 18:22 History of Present Illness History of Present Illness: Pt is a 26 yo female w/ history of Hodgkin's lymphoma (followed by oncology in [place]), Diabetes, Non-ischemic cardiomyopathy, Hypertension, admitted for acute hypotension and symptomatic anemia. Yesterday, patient reports that she was feeling lightheaded and dizzy. Her mother checked her blood pressure and it was 70s/40s and was not climbing back up despite not giving blood pressure medications. Pt was taken to ED where she was also noted to be anemic. Labs/imaging: Wbc 7.0, Hgb 7.6, Plt 296, Na 142, K 3.0, Creatinine 0.48, Glucose 106. Pt was started on IVF D5 NS@125ml/h and given 1 unit of packed red blood cells for symptomatic anemia. Hypokalemia on labs, will replete per protocol. Will adjust home blood pressure medications by discontinuing coreg and decreasing home Diltiazem ER. Consult cardiology for any further recommendations. Will continue to monitor blood pressure, restart home medications, and follow up labs. Past Medical History Past Medical History: CHF, Diabetes and Hypertension Additional Medical History: NON ISCHEMIC CARDIOMYOPATHY Past Surgical History Surgical History: Ortho Surgery Family History Family Medical History: Diabetes Mellitus and Hypertension Social History Does patient currently use any type of tobacco product: No Have you used tobacco products in the last 12 months: No Type of Tobacco Use: None Does any household member use tobacco: No Alcohol Use: None Drug Use: None Medications Home Medications: No Known Drug Allergies Allergy (Verified 10/13/21 18:22) CONTINUE taking the following medications carvedilol 3.125 mg tablet 3.125 mg PO BID 10/27/21 [History] cefadroxil 500 mg capsule 500 mg PO BID 10/27/21 [History] naloxone 4 mg/actuation nasal spray 4 mg intranasal Q2-3M PRN 10/27/21 [History] oxycodone 5 mg tablet 10 mg PO Q4H PRN 10/27/21 [History] promethazine 25 mg tablet 25 mg PO TID PRN 10/27/21 [History] sulfamethoxazole 800 mg-trimethoprim 160 mg tablet (Bactrim DS) 1 tab PO TID 10/27/21 [History] Labs Result Diagrams: 10/28/21 05:53 10/28/21 13:20 Labs: Laboratory WBC 7.0 X10^3/uL (3.6-10.0) 10/28/21 05:53 RBC 2.91 X10^6/uL (3.5-5.4) L 10/28/21 05:53 Hgb 9.4 g/dL (12.0-16.0) L 10/28/21 05:53 Hct 27.3 % (36.0-47.0) L 10/28/21 05:53 MCV 94.1 fL (80.0-100.0) 10/28/21 05:53 MCH 32.5 pg (27.0-34.0) 10/28/21 05:53 MCHC 34.5 g/dL (33.0-35.0) 10/28/21 05:53 RDW 21.2 % (11.6-16.5) H 10/28/21 05:53 Plt Count 296 X10^3/uL (150.0-450.0) 10/28/21 05:53 Plt Count Comment Adequate (ADEQUATE) 10/28/21 05:53 MPV 8.8 fL (7.4-11.0) 10/28/21 05:53 Neut % (Auto) 47.0 % (42.0-75.0) 10/28/21 05:53 Lymph % (Auto) 27.5 % (21.0-51.0) 10/28/21 05:53 [place] % (Auto) 23.7 % (0.0-13.0) H 10/28/21 05:53 Eos % (Auto) 1.6 % (0.9-2.9) 10/28/21 05:53 Baso % (Auto) 0.2 % (0.2-1.0) 10/28/21 05:53 Neut # (Auto) 3.3 x10^3/uL (2.2-4.8) 10/28/21 05:53 Lymph # (Auto) 1.9 X10^3/uL (1.3-2.9) 10/28/21 05:53 [place] # (Auto) 1.7 x10^3/uL (0.3-0.8) H 10/28/21 05:53 Eos # (Auto) 0.1 x10^3/uL (0.0-0.2) 10/28/21 05:53 Baso # (Auto) 0.0 X10^3/uL (0.0-0.1) 10/28/21 05:53 Absolute Nucleated RBC 0.6 /100WBC 10/28/21 05:53 Total Counted 100 10/28/21 05:53 Neutrophils % (Manual) 48 % (39-76) 10/28/21 05:53 Band Neutrophils % 6 % (0-10) 10/28/21 05:53 Lymphocytes % (Manual) 30 % (13-43) 10/28/21 05:53 Monocytes % (Manual) 16 % (4-9) H 10/28/21 05:53 Plt Morphology Comment Normal (NORMAL) 10/28/21 05:53 RBC Morphology Abnormal (NORMAL) A 10/28/21 05:53 Hypochromasia 1+ A 10/28/21 05:53 Poikilocytosis 1+ A 10/28/21 05:53 Anisocytosis 2+ A 10/27/21 14:32 Tear Drop Cells Present 10/28/21 05:53 Sodium 142 mmol/L (136-145) 10/28/21 05:53 Corrected Sodium TNP 10/28/21 05:53 Potassium 3.4 mmol/L (3.5-5.1) L 10/28/21 13:20 Chloride 108 mmol/L (98-107) H 10/28/21 05:53 Carbon Dioxide 23.5 mmol/L (21-32) 10/28/21 05:53 BUN 2 mg/dL (7-18) L 10/28/21 05:53 Creatinine 0.48 mg/dL (0.55-1.02) L 10/28/21 05:53 Est GFR (MDRD) Af Amer > 60 (>60) 10/28/21 05:53 Est GFR (MDRD) Non-Af > 60 (>60) 10/28/21 05:53 Glucose 106 mg/dL (65-99) H 10/28/21 05:53 POC Glucose (mg/dL) 121 mg/dL (65-99) H 10/28/21 11:12 Lactic Acid 2.6 mmol/L (0.4-2.0) H 10/27/21 14:32 Calcium 7.6 mg/dL (8.5-10.1) L 10/28/21 05:53 Corrected Calcium 9.0 mg/dL (8.5-10.1) 10/28/21 05:53 Magnesium 1.2 mg/dL (1.7-2.9) L 10/28/21 05:53 Total Bilirubin 0.50 mg/dL (0.2-1.0) 10/28/21 05:53 AST 19 Units/L (15-37) 10/28/21 05:53 ALT 19 Units/L (12-78) 10/28/21 05:53 Alkaline Phosphatase 73 Units/L (46-116) 10/28/21 05:53 Creatine Kinase 37 Units/L (26-192) 10/27/21 14:32 Troponin I High Sens 46.9 ng/L (4.0-60.0) 10/27/21 14:32 Total Protein 4.7 g/dL (6.4-8.2) L 10/28/21 05:53 Albumin 2.3 g/dL (3.4-5.0) L 10/28/21 05:53 Globulin 2.4 g/dL (2.5-4.5) L 10/28/21 05:53 Albumin/Globulin Ratio 1.0 Ratio (1.1-2.1) L 10/28/21 05:53 Specimen Type Clean catch urine 10/27/21 15:46 Urine Color Yellow (YELLOW) 10/27/21 15:46 Urine Appearance Clear (CLEAR) 10/27/21 15:46 Urine pH 7.0 (5.0 - 8.0) 10/27/21 15:46 Ur Specific [place] 1.010 (1.000-1.030) 10/27/21 15:46 Urine Protein 1+ (NEGATIVE) 10/27/21 15:46 Urine Glucose (UA) Negative (NEGATIVE) 10/27/21 15:46 Urine Ketones Negative (NEGATIVE) 10/27/21 15:46 Urine Blood Negative (NEGATIVE) 10/27/21 15:46 Urine Nitrite Negative (NEGATIVE) 10/27/21 15:46 Urine Bilirubin Negative (NEGATIVE) 10/27/21 15:46 Urine Urobilinogen Normal (NORMAL) 10/27/21 15:46 Ur Leukocyte Esterase 1+ (NEGATIVE) 10/27/21 15:46 Urine RBC 3-5 /HPF (0-3) A 10/27/21 15:46 Urine WBC 3-5 /HPF (0-5) 10/27/21 15:46 Ur Squamous Epith Cells Few /HPF (NEGATIVE) 10/27/21 15:46 Urine Bacteria Trace /HPF (NEGATIVE) 10/27/21 15:46 Urine Mucus Rare /HPF (NEGATIVE) 10/27/21 15:46 Urine Yeast Few /HPF (NEGATIVE) 10/27/21 15:46 Ur Culture Indicated? No/not indicated 10/27/21 15:46 SARS-CoV-2 (PCR) Negative (NEGATIVE) 10/27/21 16:34 Influenza Type A (PCR) Negative (NEGATIVE) 10/27/21 16:34 Influenza Type B (PCR) Negative (NEGATIVE) 10/27/21 16:34 RSV (PCR) Negative (NEGATIVE) 10/27/21 16:34 Blood Type O POSITIVE 10/27/21 16:50 Antibody Screen Negative 10/27/21 16:50 Crossmatch See Detail 10/27/21 16:50 Review of Systems Constitutional: Weakness Eyes: No Symptoms Reported ENT: No Symptoms Reported Respiratory: No Symptoms Reported Cardiovascular: Light Headedness Gastrointestinal: No Symptoms Reported Genitourinary: No Symptoms Reported Musculoskeletal: No Symptoms Reported Skin: No Symptoms Reported Neurological: No Symptoms Reported Physical Exam Vital Signs: Temperature 98.2 F Pulse Rate [Left Radial] 92 Pulse Rate 124 Respiratory Rate 20 Blood Pressure [Left Arm] 99/63 Blood Pressure [Right Arm] 102/58 Blood Pressure 93/54 O2 Sat by Pulse Oximetry 100 Oriented: Normal Eyes: Normal Ear: Normal Nose: Normal Throat: Normal Respiratory: Clear Throughout Cardiovascular: Normal : Normal Auscultation: Bowel Sounds: Normal Palpation: Normal Tenderness: Normal Skin: Normal Musculoskeletal: Normal Psychiatric: Normal Mood Description: Calm and Appropriate Affect: Normal Speech Pattern: Clear and Appropriate Assessment/Plan (1) Acute hypotension: Narrative Support Text: IVF, adjust medications, and monitor blood pressure consult cardiology Status: Acute (2) Symptomatic anemia: Narrative Support Text: transfuse 1 unit packed red blood cells Status: Acute (3) Hypokalemia: Narrative Support Text: replete per protocol Status: Acute Review H&P Reviewed: Yes Patient was examined?: Yes
[2021-10-28] MEDS ORDERED: COREG TAB 3.125 MG PO SCH (21:00)
[2021-10-28] MEDS: TYLENOL 325 MG TAB PO PRN (23:09)
[2021-10-29] MEDS: D5 1/2 NS 1,000 ML 1,000 ML IV SCH ×3 (01:06→10:47)
[2021-10-29] MEDS: ZOFRAN TAB 4 MG PO SCH ×2 (02:07→10:55)
[2021-10-29] MEDS: NORCO 5/325 MG TAB PO PRN ×2 (03:48→10:08)
[2021-10-29] MEDS: NEURONTIN CAP 100 MG PO SCH (05:37)
[2021-10-29 06:24] LABS: ALANINE AMINOTRANSFERASE 20 Units/L (12-78); ALBUMIN 2.3 g/dL (3.4-5.0); ALKALINE PHOSPHATASE 76 Units/L (46-116); ASPARTATE AMINO TRANSFERASE 27 Units/L (15-37); BLOOD UREA NITROGEN 0 mg/dL (7-18); CALCIUM 7.6 mg/dL (8.5-10.1); CHLORIDE 108 mmol/L (98-107); CREATININE 0.42 mg/dL (0.55-1.02); MAGNESIUM 2.1 mg/dL (1.7-2.9); SODIUM 141 mmol/L (136-145); TOTAL PROTEIN 4.8 g/dL (6.4-8.2); eGFR NON BLACK RACES > 60 (>60)
[2021-10-29 06:27] LABS: BASOPHILS % (AUTO) 0.4 % (0.2-1.0); EOSINOPHILS % (AUTO) 0.4 % (0.9-2.9); HEMATOCRIT 30.7 % (36.0-47.0); HEMOGLOBIN 10.3 g/dL (12.0-16.0); LYMPHOCYTES # (AUTO) 1.5 X10^3/uL (1.3-2.9); LYMPHOCYTES % (AUTO) 24.3 % (21.0-51.0); MEAN CORPUSCULAR HEMOGLOBIN 31.7 pg (27.0-34.0); MEAN CORPUSCULAR HGB CONC 33.6 g/dL (33.0-35.0); MEAN CORPUSCULAR VOLUME 94.4 fL (80.0-100.0); MEAN PLATELET VOLUME 8.5 fL (7.4-11.0); MONOCYTES % (AUTO) 16.3 % (0.0-13.0); NEUTROPHILS # (AUTO) 3.5 x10^3/uL (2.2-4.8); NEUTROPHILS % (AUTO) 58.6 % (42.0-75.0); RED BLOOD COUNT 3.25 X10^6/uL (3.5-5.4); RED CELL DISTRIBUTION WIDTH 23.8 % (11.6-16.5)
[2021-10-29] MEDS ORDERED: GLUCOPHAGE ONE (06:54)
[2021-10-29 07:16] LABS: BAND NEUTROPHILS % 12 % (0-10); METAMYELOCYTES % 2; MYELOCYTES % 2; PLATELET MORPHOLOGY COMMENT NORMAL (NORMAL)
[2021-10-29 07:17] LABS: ANISOCYTOSIS 2+; HYPOCHROMASIA SLIGHT; POIKILOCYTOSIS 1+; TEAR DROP CELLS PRESENT
[2021-10-29 07:55] VITALS: BP 97/64
[2021-10-29] MEDS: ELIQUIS PO SCH (08:19)
[2021-10-29] MEDS: GLUCOPHAGE PO SCH (08:19)
[2021-10-29] MEDS: K-DUR TAB 20 MEQ PO SCH (08:19)
[2021-10-29] MEDS: PROTONIX TAB 40 MG PO SCH (08:19)
[2021-10-29] MEDS: VOLTAREN 1 % GEL MULTI DOSE TUBE TOP SCH (08:20)
[2021-10-29] MEDS: FERROUS GLUCONATE PO SCH (08:20)
[2021-10-29] MEDS ORDERED: CARDIZEM CD 180 MG 24-HR PO SCH ×2 (09:00)
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
== END 2021-10-29 11:40 | disposition home or self-care (01) ==
LOC: MED/SURG 13:18 → ER 13:18 → MED/SURG 17:01
PROVIDERS: ADMIT Family Medicine; ATTEND Family Medicine
DX: I42.8 Other cardiomyopathies; I95.89 Other hypotension; E11.65 Type 2 diabetes mellitus with hyperglycemia; I10 Essential (primary) hypertension; Z85.71 Personal history of Hodgkin lymphoma; D64.89 Other specified anemias; R53.1 Weakness; Z20.822 Contact with and (suspected) exposure to COVID-19; R94.31 Abnormal electrocardiogram [ECG] [EKG]; E87.6 Hypokalemia

== ENCOUNTER 2022-12-08 17:16 | Inpatient (IN) ==
[2022-12-08 17:26] VITALS: BMI 24.8
[2022-12-08] MEDS ORDERED: NS 1,000 ML IV 1,000 ML IV ONE (17:35)
--- NOTE | 2022-12-08 17:42 | DR.GENAD ---
HPI Time Seen Time Seen by Provider: 12/08/22 17:35 PCP Primary Care Physician: MARCY STANLEY Complaint/Symptoms Chief Complaint Doctors Comments: 47-year-old female presents for evaluation. She started feeling poorly yesterday. Had onset of nausea, 2 episodes of vomiting. She is having lightheadedness and weakness. She feels like she is going to pass out when she stands up. She has had a slight cough, minimally productive. She is having some chest discomfort, center of the chest. Sharp, does not radiate, nothing makes it better nothing worse. Denies any bowel or bladder complaints. Patient was seen by her sport shoe spike assembler in [place] today, they had difficulty getting her blood pressure. Patient elected not to go to the ER there and returned to [place], to be seen here. Chief Complaint:: pts boyfriend states " [place] and [place] doctor said they could not get a pulse or b/p and he did not know what was going on and for her to come to the er.Pt also states " one minute my body is cold than it's hot" COVID-19 Coronavirus risk:travel/contact w/high risk person: No Has patient experienced Coronavirus symptoms: No Nurses notes reviewed Nurses Notes Review: Yes Source History Provided: Patient Mode of Arrival Mode of Arrival: Ambulatory Timing Onset of Chief Complaint: 12/08/22 PMH PMH Past Medical History: Yes Past Medical History: CHF, Diabetes and Hypertension Past Surgical History: Yes Surgical History: Ortho Surgery Past Surgical History Comment: pts ef is 13% pt is waiting for ins to approve her for defibrillator Family History History of Family Medical Conditions: Yes Family Medical History: Diabetes Mellitus and Hypertension Social History Does patient currently use any type of tobacco product: No Have you used tobacco products in the last 12 months: No Type of Tobacco Use: None Does any household member use tobacco: No Alcohol Use: None Do you use any recreational Drugs:: No Lives With: Family Lives Where: Home Travel Risk Coronavirus risk:travel/contact w/high risk person: No Has patient experienced Coronavirus symptoms: No Infectious screening In the last 2 months have you had wt loss of >10#?: NO Have you had fever, night sweats or hemotysis?: No Have you traveled outside the country in the last 6 months?: No Isolation: Standard ROS Review of Systems Constitutional: Malaise and Weakness Eyes: No Symptoms Reported ENTM: Nose Congestion Respiratoy: Moist Cough Cardiovascular: Chest Pain Gastrointestinal/Abdominal: Nausea and Vomiting Genitourinary: No Symptoms Reported Neurological: Weakness and Dizziness Musculoskeletal: No Symptoms Reported Integumentary: No Symptoms Reported All Other Systems: Reviewed and Negative PE Vital Signs Vitals: Vital Signs Temperature 98.2 F Pulse Rate 115 Pulse Rate 116 Pulse Rate 115 Pulse Rate 116 Pulse Rate 113 Pulse Rate 117 Pulse Rate 113 Pulse Rate 118 Pulse Rate 119 Pulse Rate 117 Respiratory Rate 30 Respiratory Rate 26 Respiratory Rate 26 Respiratory Rate 27 Respiratory Rate 24 Respiratory Rate 25 Respiratory Rate 26 Respiratory Rate 23 Respiratory Rate 22 Blood Pressure 119/78 Blood Pressure 98/51 Blood Pressure 94/53 Blood Pressure 91/55 O2 Sat by Pulse Oximetry 99 O2 Sat by Pulse Oximetry 98 O2 Sat by Pulse Oximetry 100 O2 Sat by Pulse Oximetry 99 General General Appearance: Alert and In No Apparent Distress Eyes Eye exam: PERRL and EOMI ENT ENT Exam: Normal Oropharynx, Mucous Membranes Moist and TM's Normal Bilaterally Neck Neck Exam: Normal Inspection Chest Chest Inspection: Normal Inspection Respiratory Respiratory Exam: Normal Lung Sounds Bilat; negative Accessory Muscle Use or Respiratory Distress Cardiovascular Cardiovascular Exam: Regular Rate, Normal Rhythm and Normal Heart Sounds Abdominal Exam Abdominal Exam: Normal Bowel Sounds and Soft; negative Tenderness, Guarding or Rebound Extremities Extremities Exam: Normal Inspection; negative Edema Neurologic Neurological Exam: Alert, Oriented X3 and CN II-XII Intact; negative Motor Sensory Deficit Skin Skin Exam: Warm and Dry COURSE Treatment Treatment: Work-up initiated. Patient given IV fluids, IV zofran. Pt with symptoms since yesterday, saw cardiology in [facility] today, they found her pulse to be weak, low BP. Pt traveled back here. CXR - + cardiomegaly, + R pleural effusion. Labs - elevated liver enzymes, BNP. Pt given 500 mls NS, BP maintaining in the upper 90's. Discussed wtih her attending, Dr Engel. Will admit, cautious IV fluids. + elevated lactic, but pt does not appear septic. Rocephin given for IV coverage. ROR Labs Reviewed Laboratory Results Reviewed?: Yes 12/09/22 05:36 12/09/22 05:36 Laboratory: WBC 13.8 X10^3/uL (3.6-10.0) H 12/08/22 17:40 RBC 3.67 X10^6/uL (3.5-5.4) 12/08/22 17:40 Hgb 12.0 g/dL (12.0-16.0) 12/08/22 17:40 Hct 37.4 % (36.0-47.0) 12/08/22 17:40 MCV 102.0 fL (80.0-100.0) H 12/08/22 17:40 MCH 32.8 pg (27.0-34.0) 12/08/22 17:40 MCHC 32.1 g/dL (33.0-35.0) L 12/08/22 17:40 RDW 14.6 % (11.6-16.5) 12/08/22 17:40 Plt Count 99 X10^3/uL (150.0-450.0) L 12/08/22 17:40 MPV 9.5 fL (7.4-11.0) 12/08/22 17:40 Neut % (Auto) 73.7 % (42.0-75.0) 12/08/22 17:40 Lymph % (Auto) 15.4 % (21.0-51.0) L 12/08/22 17:40 [place] % (Auto) 10.6 % (0.0-13.0) 12/08/22 17:40 Eos % (Auto) 0.1 % (0.9-2.9) L 12/08/22 17:40 Baso % (Auto) 0.2 % (0.2-1.0) 12/08/22 17:40 Neut # (Auto) 10.2 x10^3/uL (2.2-4.8) H 12/08/22 17:40 Lymph # (Auto) 2.1 X10^3/uL (1.3-2.9) 12/08/22 17:40 [place] # (Auto) 1.5 x10^3/uL (0.3-0.8) H 12/08/22 17:40 Eos # (Auto) 0.0 x10^3/uL (0.0-0.2) 12/08/22 17:40 Baso # (Auto) 0.0 X10^3/uL (0.0-0.1) 12/08/22 17:40 Absolute Nucleated RBC 1.4 /100WBC 12/08/22 17:40 Sodium 134 mmol/L (136-145) L 12/08/22 17:40 Corrected Sodium 135 mmol/L (136-145) L 12/08/22 17:40 Potassium 4.4 mmol/L (3.5-5.1) 12/08/22 17:40 Chloride 99 mmol/L (98-107) 12/08/22 17:40 Carbon Dioxide 20.6 mmol/L (21-32) L 12/08/22 17:40 BUN 17 mg/dL (7-18) 12/08/22 17:40 Creatinine 1.07 mg/dL (0.55-1.02) H 12/08/22 17:40 Est GFR (MDRD) Af Amer > 60 (>60) 12/08/22 17:40 Est GFR (MDRD) Non-Af > 60 (>60) 12/08/22 17:40 Glucose 133 mg/dL (65-99) H 12/08/22 17:40 Lactic Acid 5.0 mmol/L (0.4-2.0) H* 12/08/22 17:47 Calcium 8.0 mg/dL (8.5-10.1) L 12/08/22 17:40 Corrected Calcium TNP 12/08/22 17:40 Total Bilirubin 1.00 mg/dL (0.2-1.0) 12/08/22 17:40 AST 2122 Units/L (15-37) H 12/08/22 17:40 ALT 1804 Units/L (12-78) H 12/08/22 17:40 Alkaline Phosphatase 144 Units/L (46-116) H 12/08/22 17:40 Troponin I High Sens 32.8 ng/L (4.0-60.0) 12/08/22 17:40 B-Natriuretic Peptide 2200 pg/mL (0-79) H 12/08/22 17:40 Total Protein 7.2 g/dL (6.4-8.2) 12/08/22 17:40 Albumin 3.6 g/dL (3.4-5.0) 12/08/22 17:40 Globulin 3.6 g/dL (2.5-4.5) 12/08/22 17:40 Albumin/Globulin Ratio 1.0 Ratio (1.1-2.1) L 12/08/22 17:40 Lipase 53 Units/L (73-393) L 12/08/22 17:40 HCG, Qual Negative <10 mIU/mL 12/08/22 17:40 SARS-CoV-2 (PCR) Negative (NEGATIVE) 12/08/22 17:47 Influenza Type A (PCR) Negative (NEGATIVE) 12/08/22 17:47 Influenza Type B (PCR) Negative (NEGATIVE) 12/08/22 17:47 RSV (PCR) Negative (NEGATIVE) 12/08/22 17:47 Marked elevation in liver enzymes. BNP 2200. XRAY XRAY Interpreted by: Self X-ray Results: + R pleural effusion, cannot R/o underlying infiltrate. EKG Rate: 115 [place]agan: RAD Rhythm: ST Hypertrophy: LAE ST: Normal Opioid Opioid Risk Tool Age (Michael box if 16-45): Yes History of Preadolescent Sexual Abuse: No Total: 1 Total Score Risk Category: Low Risk Copyright: Prasanna SHAH predicting aberrant behaviors Discharge Plan Diagnosis Discharge Problem: Pleural effusion, right, Hypotension Discharge Plan Patient Disposition: ADMITTED INPATIENT Condition: Stable
[2022-12-08] MEDS ORDERED: NS 1,000 ML IV 1,000 ML ONE (17:43)
[2022-12-08] MEDS ORDERED: ZOFRAN INJ 4 MG VIAL IVP ONE (17:43)
[2022-12-08] MEDS ORDERED: NS 1,000 ML IV 500 ML IV ONE (17:47)
[2022-12-08] MEDS ORDERED: ZOFRAN INJ 4 MG VIAL ONE (17:50)
[2022-12-08 18:09] LABS: BASOPHILS % (AUTO) 0.2 % (0.2-1.0); EOSINOPHILS % (AUTO) 0.1 % (0.9-2.9); HEMATOCRIT 37.4 % (36.0-47.0); LYMPHOCYTES # (AUTO) 2.1 X10^3/uL (1.3-2.9); LYMPHOCYTES % (AUTO) 15.4 % (21.0-51.0); MEAN CORPUSCULAR HEMOGLOBIN 32.8 pg (27.0-34.0); MEAN CORPUSCULAR HGB CONC 32.1 g/dL (33.0-35.0); MEAN PLATELET VOLUME 9.5 fL (7.4-11.0); MONOCYTES # (AUTO) 1.5 x10^3/uL (0.3-0.8); MONOCYTES % (AUTO) 10.6 % (0.0-13.0); NEUTROPHILS # (AUTO) 10.2 x10^3/uL (2.2-4.8); NEUTROPHILS % (AUTO) 73.7 % (42.0-75.0); PLATELET COUNT 99 X10^3/uL (150.0-450.0); RED BLOOD COUNT 3.67 X10^6/uL (3.5-5.4); RED CELL DISTRIBUTION WIDTH 14.6 % (11.6-16.5); WHITE BLOOD COUNT 13.8 X10^3/uL (3.6-10.0)
--- NOTE | 2022-12-08 18:22 | EKG ---
Test Reason : low BP Blood Pressure : */* mmHG Vent. Rate : 115 BPM Atrial Rate : 115 BPM P-R Int : 150 ms QRS Dur : 82 ms QT Int : 290 ms P-R-T Axes : 57 110 34 degrees QTc Int : 401 ms Sinus tachycardia Possible Left atrial enlargement Right axis deviation Low voltage QRS Cannot rule out Anterior infarct , age undetermined Abnormal ECG When compared with ECG of 24-JUN-2022 09:44, QRS axis shifted right Minimal criteria for Anterior infarct are now present Nonspecific T wave abnormality, worse in Lateral leads Confirmed by Corky Melendrez ([id number]) on 12/09/2022 11:17:14 AM Referred By: Confirmed By: Corky Melendrez
[2022-12-08 18:24] LABS: SERUM PREGNANCY TEST, QUAL NEGATIVE <10 mIU/mL
[2022-12-08 18:31] LABS: ALBUMIN 3.6 g/dL (3.4-5.0); ALKALINE PHOSPHATASE 144 Units/L (46-116); BLOOD UREA NITROGEN 17 mg/dL (7-18); CARBON DIOXIDE 20.6 mmol/L (21-32); CHLORIDE 99 mmol/L (98-107); COR NA(FOR HYPERGLY) 135 mmol/L (136-145); CREATININE 1.07 mg/dL (0.55-1.02); GLUCOSE 133 mg/dL (65-99); LIPASE 53 Units/L (73-393); POTASSIUM 4.4 mmol/L (3.5-5.1); SODIUM 134 mmol/L (136-145); TOTAL PROTEIN 7.2 g/dL (6.4-8.2); eGFR NON BLACK RACES > 60 (>60)
[2022-12-08 18:40] LABS: ALANINE AMINOTRANSFERASE 1804 Units/L (12-78)
[2022-12-08 18:50] LABS: ASPARTATE AMINO TRANSFERASE 2122 Units/L (15-37)
[2022-12-08] MEDS ORDERED: D5W 1,000 ML IV 0 ML IV ONE (19:41)
[2022-12-08] MEDS ORDERED: D5 NS 1,000 ML IV 1,000 ML IV SCH (20:00)
[2022-12-08] MEDS ORDERED: D5 NS 1,000 ML IV 1,000 ML IV ONE (20:14)
[2022-12-08] MEDS ORDERED: ROCEPHIN VIAL 1 GRAM ONE (20:17)
[2022-12-08] MEDS ORDERED: ROCEPHIN VIAL 1 GRAM IV SCH (20:30)
[2022-12-08] MEDS: D5 NS 1,000 ML IV 1,000 ML IV SCH (22:15)
[2022-12-08] MEDS: NEURONTIN TAB 600 MG PO SCH (22:15)
[2022-12-08] MEDS: NORCO 5/325 MG TAB PO PRN (22:16)
[2022-12-08 23:05] LABS: BILIRUBIN,URINE NEGATIVE (NEGATIVE); BLOOD/HEMOGLOBIN,URINE 5+ (NEGATIVE); GLUCOSE, URINE 4+ (NEGATIVE); KETONES,URINE 1+ (NEGATIVE); LEUKOCYTE ESTERASE ,URINE 1+ (NEGATIVE); NITRITES,URINE NEGATIVE (NEGATIVE); PROTEIN,URINE 3+ (NEGATIVE); UROBILINOGEN,URINE 2+ (NORMAL)
[2022-12-08 23:12] LABS: APPEARANCE,URINE CLEAR (CLEAR); BACTERIA,URINE NEGATIVE /HPF (NEGATIVE); COLOR,URINE DARK YELLOW (YELLOW); RBC,URINE 30-50 /HPF (0-3); SQUAMOUS EPITHELIAL CELL,UR RARE /HPF (NEGATIVE)
[2022-12-08 23:13] LABS: YEAST,URINE FEW /HPF (NEGATIVE)
--- NOTE | 2022-12-09 01:15 | RAD ---
EXAM:CHEST, 1 VIEWHISTORY:low BP;COMPARISON:None.TECHNIQUE:2 frontal views of the chest were obtained.FINDINGS:There are multiple EKG leads and wires seen overlying the patient. There is moderate to severe cardiomegaly with left ventricular hypertrophy. There is a moderate right pleural effusion and diffuse hazy density to the right lower lobe in the right perihilar infiltrate with fluid tracking within the minor fissure. There is no pneumothorax. The osseous structures are intact.IMPRESSION:Moderate right pleural effusion with fluid tracking in the minor fissure.Right perihilar infiltrate and probable atelectasis of the right lung base.Moderate to severe cardiomegaly with left ventricular hypertrophy.THIS IS AN ELECTRONICALLY VERIFIED FINAL UPGTIP0312/09/2022 1:11 AM - Electronically signed by Teressa Petty MD
[2022-12-09] MEDS: NEURONTIN TAB 600 MG PO SCH ×2 (05:53→15:07)
[2022-12-09] MEDS: NORCO 5/325 MG TAB PO PRN ×2 (05:53→15:07)
[2022-12-09 06:29] LABS: ALBUMIN 3.2 g/dL (3.4-5.0); ALKALINE PHOSPHATASE 130 Units/L (46-116); BLOOD UREA NITROGEN 16 mg/dL (7-18); CALCIUM 7.9 mg/dL (8.5-10.1); CHLORIDE 103 mmol/L (98-107); COR CA(FOR HYPOALB) 8.5 mg/dL (8.5-10.1); CREATININE 0.81 mg/dL (0.55-1.02); GLUCOSE 103 mg/dL (65-99); POTASSIUM 4.3 mmol/L (3.5-5.1); SODIUM 135 mmol/L (136-145); TOTAL PROTEIN 6.2 g/dL (6.4-8.2); eGFR NON BLACK RACES > 60 (>60)
[2022-12-09 06:33] LABS: BASOPHILS % (AUTO) 0.3 % (0.2-1.0); EOSINOPHILS % (AUTO) 0.2 % (0.9-2.9); HEMATOCRIT 35.3 % (36.0-47.0); HEMOGLOBIN 11.6 g/dL (12.0-16.0); LYMPHOCYTES # (AUTO) 1.9 X10^3/uL (1.3-2.9); LYMPHOCYTES % (AUTO) 18.4 % (21.0-51.0); MEAN CORPUSCULAR HEMOGLOBIN 33.3 pg (27.0-34.0); MEAN CORPUSCULAR VOLUME 100.8 fL (80.0-100.0); MEAN PLATELET VOLUME 9.5 fL (7.4-11.0); MONOCYTES # (AUTO) 0.7 x10^3/uL (0.3-0.8); MONOCYTES % (AUTO) 6.8 % (0.0-13.0); NEUTROPHILS # (AUTO) 7.8 x10^3/uL (2.2-4.8); NEUTROPHILS % (AUTO) 74.3 % (42.0-75.0); PLATELET COUNT 41 X10^3/uL (150.0-450.0); RED CELL DISTRIBUTION WIDTH 14.3 % (11.6-16.5); WHITE BLOOD COUNT 10.4 X10^3/uL (3.6-10.0)
[2022-12-09 07:07] LABS: ALANINE AMINOTRANSFERASE 2448 Units/L (12-78); ASPARTATE AMINO TRANSFERASE 4309 Units/L (15-37)
[2022-12-09] MEDS: PROTONIX TAB 40 MG PO SCH (08:52)
[2022-12-09] MEDS: TOPROL XL PO SCH (08:52)
[2022-12-09] MEDS ORDERED: ROCEPHIN VIAL 1 GRAM IV SCH (09:00)
[2022-12-09] MEDS ORDERED: CYMBALTA PO SCH (09:00)
[2022-12-09] MEDS: D5 NS 1,000 ML IV 1,000 ML IV SCH ×2 (12:16→15:07)
[2022-12-09 12:29] LABS: BILIRUBIN,URINE NEGATIVE (NEGATIVE); BLOOD/HEMOGLOBIN,URINE 5+ (NEGATIVE); GLUCOSE, URINE 4+ (NEGATIVE); KETONES,URINE NEGATIVE (NEGATIVE); LEUKOCYTE ESTERASE ,URINE 1+ (NEGATIVE); NITRITES,URINE NEGATIVE (NEGATIVE); PROTEIN,URINE 3+ (NEGATIVE); UROBILINOGEN,URINE 2+ (NORMAL)
[2022-12-09 12:42] LABS: APPEARANCE,URINE CLOUDY (CLEAR)
[2022-12-09 12:43] LABS: BACTERIA,URINE NEGATIVE /HPF (NEGATIVE); COLOR,URINE DARK YELLOW (YELLOW); RBC,URINE TNTC /HPF (0-3); SQUAMOUS EPITHELIAL CELL,UR RARE /HPF (NEGATIVE)
--- NOTE | 2022-12-09 13:29 | DR.H&P ---
H&P - History & Physical for Day of: H&P Date: 12/08/22 - Chief Complaint Chief Complaint: SOB, WEAKNES, N/V - History of Present Illness History of Present Illness: Comments: 47-year-old female presents for evaluation. She started feeling poorly yesterday. Had onset of nausea, 2 episodes of vomiting. She is having lightheadedness and weakness. She feels like she is going to pass out when she stands up. She has had a slight cough, minimally productive. She is having some chest discomfort, center of the chest. Sharp, does not radiate, nothing makes it better nothing worse. Denies any bowel or bladder complaints. Patient was seen by her seat cover cutter in [place] today, they had difficulty getting her blood pressure. Patient elected not to go to the ER there and returned to [place], to be seen here. - Past Medical History Past Medical History: Hypertension, Diabetes, CHF Additional Medical History: NON ISCHEMIC CARDIOMYOPATHY. SARCOIDOSIS. HX LYMPHOMA - Past Surgical History Surgical History: Ortho Surgery - Family History Family Medical History: Diabetes Mellitus, Hypertension - Social History Does patient currently use any type of tobacco product: No Have you used tobacco products in the last 12 months: No Type of Tobacco Use: None Does any household member use tobacco: No Alcohol Use: None Drug Use: None - Review of Systems Constitutional: Weakness, Malaise Eyes: No Symptoms Reported ENT: No Symptoms Reported Respiratory: Shortness of Breath Cardiovascular: Edema Gastrointestinal: Nausea, Vomiting, Abdominal Pain Musculoskeletal: Back Pain Skin: No Symptoms Reported Neurological: Weakness - Physical Exam Vital Signs: Vital Signs Temperature 97.5 F Pulse Rate [Left Apical] 120 Respiratory Rate 18 Respiratory Rate 18 Respiratory Rate 18 Blood Pressure [Right Arm] 138/70 O2 Sat by Pulse Oximetry 100 Oriented: Normal Eyes: Normal Ear: Normal Nose: Normal Throat: Normal Respiratory: Diminished Throughout Cardiovascular: Tachycardia, Murmur, Edema : Normal Auscultation: Bowel Sounds: Normal Palpation: Liver Enlarged Tenderness: RUQ Skin: Decreased Turgur Musculoskeletal: Right, Shoulder, Back:Thoracic Psychiatric: Anxiety Affect: Anxious Speech Pattern: Clear, Appropriate - Assessment/Plan (1) CHF (congestive heart failure) Status: Acute Plan: ADMIT, CARDIAC MONITORING WITH EKG AND CE. STRICT I&OS. [facility] CATH, BP MONITORING AND CONTINUOUS TELEMETRY. ICU, VERIFY HOME MEDICATIONS. CXR ON ADMISSION, SUPPLEMENTAL O2. PLAN TO ARRANGE TRANSFER TO [place] (2) Chest pain Status: Acute (3) Acute hypotension Status: Acute (4) Sarcoidosis Status: Acute (5) Non-ischemic cardiomyopathy Status: Acute - Allergies Allergies/Adverse Reactions: Allergies Allergy/AdvReac Type Severity Reaction Status Date / Time No Known Drug Allergies Allergy Unknown Verified 12/08/22 20:28 - Medications Home Medications: Home Medications Medication Instructions Recorded Confirmed pantoprazole 40 mg tablet,delayed 40 mg PO QDAY 10/13/21 12/08/22 release duloxetine 30 mg capsule,delayed 30 mg PO QDAY 12/08/22 12/08/22 release empagliflozin 10 mg tablet 10 mg PO QDAY 12/08/22 12/08/22 (Jardiance) gabapentin 600 mg tablet 600 mg PO TID 12/08/22 12/08/22 hydrocodone 5 mg-acetaminophen 325 1 tab PO TID PRN 12/08/22 12/08/22 mg tablet magnesium oxide 400 mg PO QDAY 12/08/22 12/08/22 metoprolol succinate 25 mg 37.5 mg PO DAILY 12/08/22 12/08/22 tablet,extended release 24 hr spironolactone 25 mg tablet 25 mg PO QDAY 12/08/22 12/08/22
[2022-12-09 17:22] LABS: INR 2.34 (0.8-1.3)
[2022-12-09] MEDS ORDERED: D5 NS 1,000 ML IV 1,000 ML IV SCH (18:00)
[2022-12-09 18:26] LABS: TSH (3RD GENERATION) 3.676 uIU/mL (0.358-3.74)
--- NOTE | 2022-12-09 18:37 | RAD ---
EXAM:CHEST, 1 VIEWHISTORY:CHF, RT PLEURAL EFFUSION;COMPARISON:12/08/2022FINDINGS:R ight pleural effusion is moderate in size. This may have increased since the prior study.Abnormal opacity in the right lung, mostly in a perihilar distribution, could be in part due to the effusion. Finding might also represent pneumonia or atelectasis. This is a finding which has progressed since yesterday.Left lung clear.Cardiomegaly is present.The bones are unremarkable. Treated compression fracture is seen at the thoracolumbar junction.EKG leads are noted.IMPRESSION:1. Larger right effusion2. Progressed right perihilar pneumoniaTHIS IS AN ELECTRONICALLY VERIFIED FINAL [id number]/09/2022 5:16 PM - Electronically signed by Jason Khoury MD
--- NOTE | 2022-12-09 18:43 | CT ---
EXAM:ABDOMEN/PELVIS W/O CONHISTORY:Hepatitis, elevated LFTs;COMPARISON:CTA chest 06/24/2022TECHNIQUE:Multiple CT axial images of the abdomen and pelvis were obtained without IV contrast. Coronal and sagittal images were reconstructed. Dose reduction techniques included Automated Exposure Control (AEC) and adjustment of mA and kV.FINDINGS:Cardiomegaly is present. Large right effusion is new since prior study. There may be new trace left effusion also. Ground-glass and interstitial opacity is present in the perihilar regions, right side more than left. This could be perihilar edema. The findings correlate with the chest radiograph from earlier today. There are also calcified lymph nodes in the sabino and mediastinum.Diffuse decreased density of the liver is compatible with hepatic steatosis. Gallbladder is well distended. The wall is indistinct suggesting edema. The findings might be due to acute cholecystitis. Recommend correlation with sonography. There is no biliary dilatation.The adrenal glands are normal. The pancreas is normal. But there is a low-density retroperitoneal mass measuring about 2 cm. This might represent a pseudocyst as it is in close approximation inferior margin of the pancreas.Small calcifications are present in the right kidney. Largest measures about 3 mm. The kidneys have normal size and shape. There is no hydronephrosis or significant perirenal edema. The ureters are not dilated. The urinary bladder is contracted around a Ruiz balloon catheter.Small volume ascites is noted mostly in the pelvis along the superior margin of the urinary bladderThere is no bowel dilatation. No pneumoperitoneum.Treated compression fracture is present at T12. The heights of the other vertebra are normal. No significant amount of degenerative change.IMPRESSION:1. Possible acute cholecystitis; recommend correlation with sonography2. Probable 2 cm retroperitoneal pancreatic pseudocyst3. Nonobstructing right renal calculi4. Small volume pelvic ascites5. New findings in the lower chest, see note6. Hepatic steatosisTHIS IS AN ELECTRONICALLY VERIFIED FINAL [id number]/09/2022 6:29 PM - Electronically signed by Jason Khoury MD
[2022-12-09 23:13] VITALS: TEMP 97.6
--- NOTE | 2022-12-10 00:29 | EKG ---
Test Reason : CHEST PAIN Blood Pressure : */* mmHG Vent. Rate : 114 BPM Atrial Rate : 114 BPM P-R Int : 144 ms QRS Dur : 72 ms QT Int : 336 ms P-R-T Axes : 64 131 49 degrees QTc Int : 463 ms Sinus tachycardia Possible Left atrial enlargement Right axis deviation Low voltage QRS Nonspecific ST abnormality Abnormal ECG When compared with ECG of 08-DEC-2022 18:20, ST now depressed in Inferior leads Confirmed by Corky Melendrez ([id number]) on 12/11/2022 9:17:08 AM Referred By: Confirmed By: Corky Melendrez
[2022-12-10 06:43] LABS: HEMATOCRIT 33.4 % (36.0-47.0); LYMPHOCYTES # (AUTO) 1.1 X10^3/uL (1.3-2.9); MEAN CORPUSCULAR HEMOGLOBIN 33.5 pg (27.0-34.0); MONOCYTES # (AUTO) 1.2 x10^3/uL (0.3-0.8); RED CELL DISTRIBUTION WIDTH 14.9 % (11.6-16.5)
[2022-12-10 06:47] LABS: BASOPHILS % (AUTO) 0 % (0.2-1.0); EOSINOPHILS % (AUTO) 0.1 % (0.9-2.9); HEMOGLOBIN 10.8 g/dL (12.0-16.0); LYMPHOCYTES % (AUTO) 7.8 % (21.0-51.0); MEAN CORPUSCULAR HGB CONC 32.4 g/dL (33.0-35.0); MEAN CORPUSCULAR VOLUME 103.5 fL (80.0-100.0); MEAN PLATELET VOLUME 9.3 fL (7.4-11.0); MONOCYTES % (AUTO) 8.1 % (0.0-13.0); NEUTROPHILS # (AUTO) 12.3 x10^3/uL (2.2-4.8); PLATELET COUNT 41 X10^3/uL (150.0-450.0); RED BLOOD COUNT 3.23 X10^6/uL (3.5-5.4)
[2022-12-10 06:55] LABS: WHITE BLOOD COUNT 14.7 X10^3/uL (3.6-10.0)
[2022-12-10 07:00] LABS: ALBUMIN 3.3 g/dL (3.4-5.0); ALKALINE PHOSPHATASE 138 Units/L (46-116); BLOOD UREA NITROGEN 24 mg/dL (7-18); CALCIUM 8.1 mg/dL (8.5-10.1); CARBON DIOXIDE 18.2 mmol/L (21-32); CHLORIDE 100 mmol/L (98-107); COR CA(FOR HYPOALB) 8.7 mg/dL (8.5-10.1); CREATININE 1.01 mg/dL (0.55-1.02); GLUCOSE 71 mg/dL (65-99); POTASSIUM 4.4 mmol/L (3.5-5.1); SODIUM 134 mmol/L (136-145); TOTAL PROTEIN 5.9 g/dL (6.4-8.2); eGFR NON BLACK RACES > 60 (>60)
[2022-12-10 07:09] LABS: ALANINE AMINOTRANSFERASE 2398 Units/L (12-78)
[2022-12-10 07:26] LABS: ASPARTATE AMINO TRANSFERASE 2681 Units/L (15-37)
[2022-12-10 08:29] VITALS: BP 100/65; PULSE 114; RESP 35; O2SAT 92
[2022-12-10] MEDS: TOPROL XL PO SCH (08:46)
[2022-12-10] MEDS: PROTONIX TAB 40 MG PO SCH (08:47)
[2022-12-10] MEDS ORDERED: ROCEPHIN VIAL 1 GRAM 1 G in NS 100 ML IV 100 ML IV SCH (09:00)
[2022-12-11 08:00] LABS: HEPATITIS B SURFACE ANTIGEN Negative (Negative)
== END 2022-12-10 09:25 | disposition short-term general hospital (02) | DRG 187 ==
LOC: ER 17:16 → MED/SURG 21:08 → ICU 12-09 10:49
PROVIDERS: ADMIT Internal Medicine; ATTEND Internal Medicine